=== PATIENT | male | born 1975 | race Hispanic/Latino ===

== ENCOUNTER 2019-09-10 18:43 | Emergency (ER) | payer SELFPAY ==
[2019-09-10] MEDS ORDERED: FAMOTIDINE 20 MG/2 ML VIAL IV ONE (20:05)
[2019-09-10] MEDS ORDERED: ONDANSETRON 4 MG/2 ML VIAL ONE (20:05)
[2019-09-10] MEDS ORDERED: ACETAMINOPHEN 500 MG TAB ONE (20:05)
[2019-09-10] MEDS ORDERED: NA CHLORIDE 0.9% 1,000 ML ONE (20:06)
--- NOTE | 2019-09-10 20:33 | RAD REPORT ---
EXAM DESCRIPTION: RAD - Chest Single View - 09/10/2019 8:26 pm CLINICAL HISTORY: Cough;Chest pain Chest pain. COMPARISON: CHEST SINGLE VIEW dated 10/14/2013 FINDINGS: Portable technique limits examination quality. The lungs are grossly clear. The heart is normal in size. No displaced fractures. IMPRESSION: No acute intrathoracic process suspected.
[2019-09-10 20:34] LABS: Absolute Lymphocytes (CBC) 1.3 K/uL (0.7-4.9); Basophils % 1.2 % (0-1.3); Hematocrit 48.8 % (39.6-49.0); Lymphocytes % 14.4 % (15.3-44.8); MPV 8.6 fL (7.6-11.3); RBC Red Blood Cell Count 5.72 M/uL (4.33-5.43)
[2019-09-10 20:39] LABS: Protime INR 1.11
[2019-09-10 20:53] LABS: ALT/SGPT 59 U/L (12-78); AST/SGOT 109 U/L (15-37); Albumin 4.1 g/dL (3.4-5.0); Alkaline Phosphatase 134 U/L (45-117); BUN Blood Urea Nitrogen 14 mg/dL (7-18); Bicarbonate 29 mmol/L (21-32); Bilirubin Direct 0.1 mg/dL (0-0.2); Bilirubin Total 0.7 mg/dL (0.2-1.0); Glucose Level 172 mg/dL (74-106); Magnesium 2.6 mg/dL (1.8-2.4); NT PRO-BNP 17 pg/mL (<125); Potassium 4.1 mmol/L (3.5-5.1); Protein, Total 8.4 g/dL (6.4-8.2); Sodium Level 138 mmol/L (136-145); Troponin (Emerg Dept Use Only) < 0.02 ng/mL (0.0-0.045)
--- NOTE | 2019-09-10 22:28 | EDPHYS ---
Physician Documentation [facility] Name: Fredrick Reyez Jr Age: 44 yrs Sex: Male : 1975 Arrival Date: 09/10/2019 Time: 18:45 Bed 27 Private MD: ED Physician Nolan Chakraborty HPI: 09/09 20:00 This 44 yrs old Male presents to ER via Ambulatory with complaints of High cp Blood Pressure. 20:00 The patient has elevated blood pressure and discovered this at home. cp 20:00 Severity of symptoms: At its worst the blood pressure was 200 mm Hg. cp 20:00 Associated signs and symptoms: Pertinent positives: fever, Pertinent negatives: chest cp pain, headache, lightheadedness, visual changes, vomiting. Patient reports history of hypertensive and being prescribed carvedilol and losartan medications. Patient admits to not taking meds as prescribed. Patient reports having cough Sunday that has improved. Was tested for COVID-19 and results returned positive today. 20:00 Patient reports taking blood pressure meds prior to arrival. cp Historical: - Allergies: 19:33 No Known Allergies; ll1 - PMHx: 19:33 Hypertension; ll1 - PSHx: 19:33 oral surgery; ll1 - Immunization history:: Flu vaccine is not up to date. - Social history:: Smoking status: Patient denies any tobacco usage or history of. Patient uses alcohol, only on a social basis. Patient/guardian denies using street drugs. ROS: 20:05 Constitutional: Positive for chills, fever, Negative for poor PO intake. cp 20:05 Cardiovascular: Negative for chest pain, edema. 20:05 Respiratory: Negative for cough, shortness of breath, wheezing. 20:05 Abdomen/GI: Negative for abdominal pain, nausea, vomiting, and diarrhea, constipation. 20:05 Back: Negative for radiated pain. 20:05 : Negative for urinary symptoms. 20:05 Skin: Negative for diaphoresis, rash. 20:05 Neuro: Negative for altered mental status, dizziness, headache, weakness. 20:05 All other systems are negative. Exam: 20:15 Constitutional: The patient appears in no acute distress, alert, awake, cp non-diaphoretic, non-toxic, well developed, well nourished, obese. 20:15 Head/Face: Normocephalic, atraumatic. cp 20:15 Eyes: Periorbital structures: appear normal, Conjunctiva: normal, no exudate, no injection, Sclera: no appreciated abnormality, Lids and lashes: appear normal, bilaterally. 20:15 ENT: External ear(s): are unremarkable, Ear canal(s): are normal, clear, TM's: dullness, bilaterally, Nose: is normal, Mouth: Lips: moist, Oral mucosa: moist, Posterior pharynx: Airway: no evidence of obstruction, patent, Tonsils: no enlargement, no exudate, swelling, is not appreciated, erythema, that is mild, exudate, is not appreciated. 20:15 Neck: ROM/movement: is normal, is supple, without pain, no range of motions limitations, no meningismus, no nuchal rigidity. 20:15 Chest/axilla: Inspection: normal, Palpation: is normal, no crepitus, no tenderness. 20:15 Cardiovascular: Rate: tachycardic, Rhythm: regular, Edema: is not appreciated, JVD: is not appreciated. 20:15 Respiratory: the patient does not display signs of respiratory distress, Respirations: normal, no use of accessory muscles, no retractions, labored breathing, is not present, Breath sounds: are clear throughout, no decreased breath sounds, no stridor, no wheezing. 20:15 Abdomen/GI: Inspection: abdomen appears normal, Palpation: abdomen is soft and non-tender, in all quadrants. 20:15 Back: pain, is absent, ROM is normal. 20:15 Skin: no rash present. 20:15 Neuro: Orientation: to person, place \T\ time. Mentation: is normal, Cerebellar function: is grossly normal, Motor: moves all fours, strength is normal, Sensation: is normal. Vital Signs: 19:30 BP 166 / 122; Pulse 106; Resp 18; Temp 101.5; Pulse Ox 96% on R/A; Pain 4/10; ll1 19:47 BP 165 / 107; Pulse 100; ll1 21:03 BP 154 / 92; Pulse 97; Resp 18; Pulse Ox 98% on R/A; ll1 21:13 Temp 100.8; ll1 21:58 BP 153 / 94; Pulse 86; Resp 18; Temp 98.5; Pulse Ox 96% on R/A; ll1 22:31 BP 149 / 89; Pulse 87; Resp 18; Pulse Ox 95% ; ll1 MDM: 19:31 Patient medically screened. cp 20:00 Differential diagnosis: hypertensive crisis, Malignant HTN, CVA, intracerebral cp hemorrhage, kidney failure, pneumonia, respiratory distress. 22:27 Data reviewed: vital signs, nurses notes, lab test result(s), EKG, radiologic studies, cp plain films, I have discussed the patient's presentation/case with the attending Emergency Department Physician;. 22:27 Test interpretation: by ED physician or midlevel provider: ECG. Counseling: I had a cp detailed discussion with the patient and/or guardian regarding: the historical points, exam findings, and any diagnostic results supporting the discharge/admit diagnosis, the presence of at least one elevated blood pressure reading (>120/80) during this emergency department visit, lab results, radiology results, the need for outpatient follow up, a family practitioner, to return to the emergency department if symptoms worsen or persist or if there are any questions or concerns that arise at home. Response to treatment: the patient's symptoms have markedly improved after treatment, VSS. Blood pressure improved. Patient with no signs of respiratory distress and appears non-toxic, and as a result, I will discharge patient. 09/09 19:52 Order name: Basic Metabolic Panel; Complete Time: 21:51 cp 09/09 21:51 Interpretation: Normal except: GLUC 172; CRE 1.35; GFR 58. cp 09/09 19:52 Order name: CBC with Diff; Complete Time: 21:51 cp 09/09 19:52 Order name: LFT's; Complete Time: 21:51 cp 09/09 21:52 Interpretation: Normal except: AST 109; ALK 134; TP 8.4; GLOB 4.3; A/G 1.0. cp 09/09 19:52 Order name: Magnesium; Complete Time: 21:51 cp 09/09 19:52 Order name: NT PRO-BNP; Complete Time: 21:51 cp 09/09 19:52 Order name: PT-INR; Complete Time: 21:51 cp 09/09 19:52 Order name: Troponin (emerg Dept Use Only); Complete Time: 21:51 cp 09/09 19:52 Order name: XRAY Chest (1 view); Complete Time: 21:51 cp 09/09 19:52 Order name: EKG; Complete Time: 19:53 cp 09/09 19:52 Order name: Cardiac monitoring; Complete Time: 21:04 cp 09/09 19:52 Order name: EKG - Nurse/Tech; Complete Time: 21:04 cp 09/09 19:52 Order name: IV Saline Lock; Complete Time: 19:53 cp 09/09 19:52 Order name: Labs collected and sent; Complete Time: :53 cp 09/09 19:52 Order name: O2 Per Protocol; Complete Time: :53 cp 09/09 19:52 Order name: O2 Sat Monitoring; Complete Time: 19:53 cp Administered Medications: 20:05 Drug: Tylenol 1000 mg Route: PO; ll1 21:56 Follow up: Response: No adverse reaction; Temperature is decreased; RASS: Alert and ll1 Calm (0) 20:10 Drug: NS 0.9% 1000 ml Route: IV; Rate: 1 bolus; Site: right antecubital; ll1 22:46 Follow up: Response: No adverse reaction; RASS: Alert and Calm (0); IV Status: ll1 Completed infusion; IV Intake: 1000ml 20:14 Drug: Zofran (Ondansetron) 4 mg Route: IVP; Site: right antecubital; ll1 21:56 Follow up: Response: No adverse reaction; RASS: Alert and Calm (0) ll1 20:14 Drug: Pepcid 20 mg Route: IVP; Site: right antecubital; ll1 21:56 Follow up: Response: No adverse reaction; RASS: Alert and Calm (0) ll1 22:47 Not Given (Patient Refused): Ibuprofen 800 mg PO once ll1 Disposition: 23:00 Chart complete. cp Disposition: 09/10/19 22:28 Discharged to Home. Impression: Hypertensive heart disease, Coronavirus infection, unspecified. - Condition is Stable. - Discharge Instructions: Hypertension, How to Take Your Blood Pressure, [id number], Managing Your Hypertension, COVID-19. - Prescriptions for Zithromax Z- Luis Miguel 250 mg Oral Tablet - take 1 tablet by ORAL route as directed for 5 days Day 1 - take two (2) tablets one time. Day 2, 3, 4 , 5 take one (1) tablet once daily.; 6 tablet. Prednisone 20 mg Oral Tablet - take 2 tablet by ORAL route once daily for 5 days; 10 tablet. - Medication Reconciliation Form, Thank You Letter, Antibiotic Education, Prescription Opioid Use, Work release form form. - Follow up: Private Physician; When: 1 - 2 days; Reason: Recheck today's complaints. - Problem is new. - Symptoms have improved. Addendum: 09/12/2019 04:29 Co-signature as Attending Physician, Nolan Chakraborty MD. [facility] Signatures: Dispatcher [employer] EDMS Oneal Kirkpatrick PA PA cp Armando Perdomo RN RN ll1 Nolan Chakraborty MD MD [id number] Corrections: (The following items were deleted from the chart) 09/09 22:50 22:28 09/10/2019 22:28 Discharged to Home. Impression: Hypertensive heart disease; ll1 Coronavirus infection, unspecified. Condition is Stable. Forms are Medication Reconciliation Form, Thank You Letter, Antibiotic Education, Prescription Opioid Use. Follow up: Private Physician; When: 1 - 2 days; Reason: Recheck today's complaints. Problem is new. Symptoms have improved. cp 09/10 21:23 21:16 Constitutional: Positive for chills, fever, Negative for poor PO intake, cp cp 21:23 21:16 Cardiovascular: Negative for chest pain, edema, cp cp 21:23 21:16 Respiratory: Negative for cough, shortness of breath, wheezing, cp cp 21:23 21:16 Abdomen/GI: Negative for abdominal pain, nausea, vomiting, and diarrhea, cp constipation, cp 21:23 21:16 Back: Negative for radiated pain, cp cp 21:23 21:16 : Negative for urinary symptoms, cp cp 21:23 21:16 Skin: Negative for diaphoresis, rash, cp cp 21:23 21:16 Neuro: Negative for altered mental status, dizziness, headache, weakness, cp cp 21:23 21:16 All other systems are negative, cp cp
--- NOTE | 2019-09-10 22:28 | ER ---
Nurse's Notes [facility] Name: Fredrick Reyez Jr Age: 44 yrs Sex: Male : 1975 Arrival Date: 09/10/2019 Time: 18:45 Bed 27 Private MD: Diagnosis: Hypertensive heart disease;Coronavirus infection, unspecified Presentation: 09/09 19:30 Chief complaint: Patient states: MEAD, not feeling well. BP at home 200/120. Prescribed ll1 losartan and carvedilol, but hasn't been taking as prescribed. Covid positive result yesterday. Didn't realize he has fever right now. Coronavirus screen: Client denies travel out of the [place] in the last 14 days. fatigue, fever, headache, Client presents with at least one sign or symptom that may indicate coronavirus-19. Standard/surgical mask placed on the client. Client reports previous positive COVID test result. Ebola Screen: Patient denies travel to an Ebola-affected area in the 21 days before illness onset. Initial Sepsis Screen: Does the patient meet any 2 criteria? Temp <36.0*C (96.8*F)) or > 38.3*C (100.9*F). HR > 90 bpm. Does the patient have a suspected source of infection? Yes: Other: covid positive. Risk Assessment: Do you want to hurt yourself or someone else? Patient reports no desire to harm self or others. Onset of symptoms was September 07, 2019. 19:30 Method Of Arrival: Ambulatory ll1 19:30 Acuity: MICHELLE 3 ll1 Historical: - Allergies: 19:33 No Known Allergies; ll1 - PMHx: 19:33 Hypertension; ll1 - PSHx: 19:33 oral surgery; ll1 - Immunization history:: Flu vaccine is not up to date. - Social history:: Smoking status: Patient denies any tobacco usage or history of. Patient uses alcohol, only on a social basis. Patient/guardian denies using street drugs. Screenin:07 Abuse screen: Denies threats or abuse. Nutritional screening: No deficits noted. ll1 Tuberculosis screening: No symptoms or risk factors identified. Fall Risk IV access (20 points). Total Goldberg Fall Scale indicates No Risk (0-24 pts). Assessment: 19:30 General: Appears in no apparent distress. Behavior is calm, cooperative, appropriate ll1 for age. General: covid positive result yesterday.. Pain: Complains of pain in head Pain currently is 4 out of 10 on a pain scale. Quality of pain is described as aching, Pain began 2-3 days ago. Is continuous. Neuro: Level of Consciousness is awake, alert, obeys commands, Oriented to person, place, time, situation, Appropriate for age Gun Bar[employer] are equal bilaterally Moves all extremities. Full function Gait is steady, Speech is normal, Facial symmetry appears normal, Reports headache occipital area. Cardiovascular: Reports high BP Heart tones S1 S2 Capillary refill < 3 seconds Clubbing of nail beds is absent JVD is absent Patient's skin is warm and dry. Pulses are all present. Rhythm is sinus tachycardia. Respiratory: Denies cough, shortness of breath. GI: Abdomen is flat, Bowel sounds present X 4 quads. Abd is soft and non tender X 4 quads. Reports nausea. 20:30 Reassessment: Patient appears in no apparent distress at this time. No changes from ll1 previously documented assessment. Patient and/or family updated on plan of care and expected duration. Pain level reassessed. Patient is alert, oriented x 3, equal unlabored respirations, skin warm/dry/pink. 21:30 Reassessment: Patient appears in no apparent distress at this time. No changes from ll1 previously documented assessment. Patient and/or family updated on plan of care and expected duration. Pain level reassessed. Patient is alert, oriented x 3, equal unlabored respirations, skin warm/dry/pink. 22:30 Reassessment: Patient appears in no apparent distress at this time. No changes from ll1 previously documented assessment. Patient and/or family updated on plan of care and expected duration. Pain level reassessed. Patient is alert, oriented x 3, equal unlabored respirations, skin warm/dry/pink. Patient states feeling better. Vital Signs: 19:30 BP 166 / 122; Pulse 106; Resp 18; Temp 101.5; Pulse Ox 96% on R/A; Pain 4/10; ll1 19:47 BP 165 / 107; Pulse 100; ll1 21:03 BP 154 / 92; Pulse 97; Resp 18; Pulse Ox 98% on R/A; ll1 21:13 Temp 100.8; ll1 21:58 BP 153 / 94; Pulse 86; Resp 18; Temp 98.5; Pulse Ox 96% on R/A; ll1 22:31 BP 149 / 89; Pulse 87; Resp 18; Pulse Ox 95% ; ll1 ED Course: 18:45 Patient arrived in ED. ds1 19:21 Armando Perdomo, RN is Primary Nurse. ll1 19:23 Oneal Kirkpatrick PA is PHCP. cp 19:23 Nolan Chakraborty MD is Attending Physician. cp 19:32 Triage completed. ll1 19:33 Arm band placed on Patient placed in an exam room, on a stretcher. ll1 20:00 Inserted saline lock: 20 gauge in right antecubital area, using aseptic technique. ll1 Blood collected. 20:27 XRAY Chest (1 view) In Process Unspecified. EDMS 21:07 Patient has correct armband on for positive identification. Bed in low position. Call ll1 light in reach. Side rails up X 1. Pulse ox on. NIBP on. 22:48 No provider procedures requiring assistance completed. IV discontinued, intact, ll1 bleeding controlled, No redness/swelling at site. Pressure dressing applied. Administered Medications: 20:05 Drug: Tylenol 1000 mg Route: PO; ll1 21:56 Follow up: Response: No adverse reaction; Temperature is decreased; RASS: Alert and ll1 Calm (0) 20:10 Drug: NS 0.9% 1000 ml Route: IV; Rate: 1 bolus; Site: right antecubital; ll1 22:46 Follow up: Response: No adverse reaction; RASS: Alert and Calm (0); IV Status: ll1 Completed infusion; IV Intake: 1000ml 20:14 Drug: Zofran (Ondansetron) 4 mg Route: IVP; Site: right antecubital; ll1 21:56 Follow up: Response: No adverse reaction; RASS: Alert and Calm (0) ll1 20:14 Drug: Pepcid 20 mg Route: IVP; Site: right antecubital; ll1 21:56 Follow up: Response: No adverse reaction; RASS: Alert and Calm (0) ll1 22:47 Not Given (Patient Refused): Ibuprofen 800 mg PO once ll1 Intake: 22:46 IV: 1000ml; Total: 1000ml. ll1 Outcome: 22:28 Discharge ordered by . cp 22:50 Patient left the ED. ll1 22:50 Discharged to home ambulatory. ll1 22:50 Condition: stable 22:50 Discharge instructions given to patient, Instructed on discharge instructions, follow up and referral plans. medication usage, Demonstrated understanding of instructions, follow-up care, medications, Prescriptions given X 2. Signatures: Dispatcher [employer] [facility] Tanika Moran ds1 Oneal Kirkpatrick PA PA cp Lewis, Lynsay, RN RN 1
[2019-09-10 23:34] VITALS: TEMP 98.5
[2019-09-10 23:35] VITALS: BP 149/89; O2SAT 95
== END 2019-09-10 22:50 | disposition home or self-care (01) ==
LOC: ER 18:43
DX: U07.1 COVID-19 (principal); I11.9 Hypertensive heart disease without heart failure; I10 Essential (primary) hypertension
CPT/HCPCS: 36415; 71045; 80048; 80076; 83735; 83880; 84484; 85025; 85610; 93005; 96361; 96374; 96375; 99284; J2405; J7030

== ENCOUNTER 2019-09-16 16:28 | Inpatient (IN) | payer SELFPAY ==
[2019-09-16 18:05] LABS: Protime INR 1.1
[2019-09-16 18:08] LABS: Absolute Lymphocytes (CBC) 0.7 K/uL (0.7-4.9); Basophils % 0.3 % (0-1.3); Hematocrit 52.4 % (39.6-49.0); Lymphocytes % 11.6 % (15.3-44.8); MPV 8.7 fL (7.6-11.3); RBC Red Blood Cell Count 6.21 M/uL (4.33-5.43)
[2019-09-16 18:24] LABS: ALT/SGPT 41 U/L (12-78); AST/SGOT 66 U/L (15-37); Albumin 3.8 g/dL (3.4-5.0); Alkaline Phosphatase 118 U/L (45-117); BUN Blood Urea Nitrogen 12 mg/dL (7-18); Bicarbonate 27 mmol/L (21-32); Bilirubin Direct 0.4 mg/dL (0-0.2); Bilirubin Total 1.1 mg/dL (0.2-1.0); Glucose Level 240 mg/dL (74-106); Magnesium 2.5 mg/dL (1.8-2.4); NT PRO-BNP 35 pg/mL (<125); Protein, Total 8.7 g/dL (6.4-8.2); Sodium Level 138 mmol/L (136-145); Troponin (Emerg Dept Use Only) < 0.02 ng/mL (0.0-0.045)
[2019-09-16] MEDS ORDERED: ALBUTEROL INHALER 60 PUFF/8 GM IH ONE (18:38)
[2019-09-16] MEDS ORDERED: dexAMETHasone 10 MG/ML VIAL ONE (18:38)
--- NOTE | 2019-09-16 18:55 | RAD REPORT ---
EXAM DESCRIPTION: RAD - Chest Single View - 09/16/2019 6:37 pm CLINICAL HISTORY: Chest pain;SOB Chest pain. COMPARISON: Chest Single View dated 09/10/2019; CHEST SINGLE VIEW dated 10/14/2013 FINDINGS: Portable technique limits examination quality. The lungs are quite underinflated resulting in vascular crowding and limitation in assessment. The he art is normal in size. No displaced fractures.
--- NOTE | 2019-09-16 19:02 | RAD REPORT ---
EXAM DESCRIPTION: CT - Chest For Pe Angio - 09/16/2019 6:47 pm CLINICAL HISTORY: Chest pain. Chest pain;SOB COMPARISON: No comparisons TECHNIQUE: CT angiogram of the pulmonary arteries was performed with MIP. All CT scans are performed using dose optimization technique as appropriate and may include automated exposure control or mA/KV adjustment according to patient size. FINDINGS: No evidence of pulmonary thromboembolism. No acute aortic finding demonstrated. Moderate bilateral interstitial lung opacities are seen, greatest in the lung bases. This pattern is compatible with COVID-19 infection. No significant pericardial or pleural fluid. No concerning bony finding. Fatty liver. IMPRESSION: No evidence of pulmonary thromboembolism. Moderate bilateral interstitial lung opacities are present, greatest in the lung bases. This pattern is compatible with COVID-19 infection.
[2019-09-16] MEDS ORDERED: ACETAMINOPHEN 500 MG TAB ONE (19:59)
--- NOTE | 2019-09-16 20:29 | ER ---
Nurse's Notes [facility] Name: Fredrick Reyez Jr Age: 44 yrs Sex: Male : 1975 Arrival Date: 09/16/2019 Time: 16:32 Bed 2 Private MD: Diagnosis: Pneumonia due to other specified infectious organisms;Coronavirus infection, unspecified;Hypoxemia Presentation: 09/15 16:41 Risk Assessment: Do you want to hurt yourself or someone else? Patient reports no ll1 desire to harm self or others. Onset of symptoms was September 14, 2019. 16:41 Acuity: MICHELLE 3 ll1 16:41 Chief complaint: Patient states: Cough and SOB continues since last visit here last ll1 week. covid positive. Coronavirus screen: Client denies travel out of the [place] in the last 14 days. Client presents with at least one sign or symptom that may indicate coronavirus-19. Standard/surgical mask placed on the client. Client reports previous positive COVID test result. Ebola Screen: Patient denies travel to an Ebola-affected area in the 21 days before illness onset. 16:41 Method Of Arrival: Ambulatory ll1 18:37 Initial Sepsis Screen: Does the patient meet any 2 criteria? No. Patient's initial ph sepsis screen is negative. Does the patient have a suspected source of infection? Yes: Productive cough/pneumonia. Historical: - Allergies: 16:40 No Known Allergies; ll1 - PMHx: 16:40 Hypertension; ll1 - PSHx: 16:40 oral surgery; ll1 - Immunization history:: Flu vaccine is not up to date. - Social history:: Smoking status: Patient denies any tobacco usage or history of. Patient uses alcohol, only on a social basis. Patient/guardian denies using street drugs. Screenin:37 Abuse screen: Denies threats or abuse. Denies injuries from another. Nutritional ph screening: No deficits noted. Tuberculosis screening: No symptoms or risk factors identified. Fall Risk None identified. Assessment: 17:30 General: Appears in no apparent distress. comfortable, obese, well groomed, Behavior is ph calm, cooperative, appropriate for age. Pain: Complains of pain in chest Pain does not radiate. Neuro: Level of Consciousness is awake, alert, obeys commands, Oriented to person, place, time, situation. Cardiovascular: Reports chest pain, fatigue, shortness of breath, Capillary refill < 3 seconds in bilateral fingers Patient's skin is warm and dry. Rhythm is regular. Respiratory: Reports shortness of breath on exertion cough that is persistent Airway is patent Respiratory effort is even, unlabored, Respiratory pattern is regular, symmetrical. GI: No signs and/or symptoms were reported involving the gastrointestinal system. Derm: Skin is intact, is healthy with good turgor, Skin is pink, warm \\T\\ dry. Musculoskeletal: Circulation, motion, and sensation intact. Range of motion: intact in all extremities. 18:42 Reassessment: Patient appears in no apparent distress at this time. Patient and/or ph family updated on plan of care and expected duration. Pain level reassessed. Patient is alert, oriented x 3, equal unlabored respirations, skin warm/dry/pink. 19:30 General: Appears in no apparent distress. Neuro: Level of Consciousness is awake, lp1 alert, obeys commands, Oriented to person, place, time, situation. Respiratory: Reports pain with respiration. Respiratory: Respiratory effort is even, shallow, Respiratory pattern is tachypnea Onset: The symptoms/episode began/occurred gradually. Derm: Skin is intact, Skin is dry, Skin is normal. 20:18 Reassessment: Ambulated with patient, O2 at 86% on RA; patient states slight shortness lp1 of breath, pain with respiration; Provider notified. 20:40 Reassessment: Hospitalist at bedside. lp1 21:00 Reassessment: Patient aware of pending admission; states feeling better, "I feel like lp1 my fever is breaking". Vital Signs: 16:41 BP 143 / 93; Pulse 85; Resp 22; Temp 97.9; Pulse Ox 95% on R/A; Pain 5/10; ll1 18:36 BP 147 / 78; Pulse 85; Resp 18; Pulse Ox 96% on 2 lpm NC; ph 19:29 BP 149 / 77; Pulse 87; Resp 28; Temp 100.4(O); Pulse Ox 90% on R/A; lp1 20:08 Pulse Ox 87% on R/A; lp1 20:30 BP 148 / 79; Pulse 88; Resp 18; Pulse Ox 92% on R/A; lp1 20:41 Weight 108.86 kg (R); lp1 21:20 BP 137 / 95; Pulse 83; Resp 20; Temp 99.1(O); Pulse Ox 93% on R/A; lp1 22:25 Temp 98.8(O); lp1 20:08 Patient standing at bedside, using urinal lp1 ED Course: 16:32 Patient arrived in ED. bp1 16:41 Triage completed. ll1 16:42 Arm band placed on Patient placed in an exam room, on a stretcher. ll1 16:43 Oneal Kirkpatrick PA is PHCP. cp 16:43 Bora Pierre MD is Attending Physician. cp 16:47 Meg Pimentel, JERRELL is Primary Nurse. ph 18:10 Initial lab(s) drawn, by ED staff, sent to lab. Inserted saline lock: 20 gauge in right ph antecubital area, using aseptic technique. Blood collected. 18:37 Patient has correct armband on for positive identification. Placed in gown. Bed in low ph position. Call light in reach. Side rails up X2. Pulse ox on. NIBP on. Door closed. Noise minimized. Warm blanket given. 18:37 Oxygen administration via nasal cannula \\T\\ 2L/min Response to oxygen therapy: symptoms ph improved. 20:09 No provider procedures requiring assistance completed. lp1 20:28 Walt Bell DO is Hospitalizing Provider. cp 20:40 Patient admitted, IV remains in place. lp1 20:50 20g IV to R AC DC'd due to infiltration. lp1 21:00 Inserted saline lock: 20 gauge in left antecubital area, using aseptic technique. lp1 Administered Medications: 18:35 Drug: Dexamethasone 6 mg Route: IVP; Site: right antecubital; ph 18:35 Follow up: Response: No adverse reaction ph 18:36 Drug: Albuterol HFA Inhaler 2 puffs Route: Inhalation; ph 19:59 Drug: Tylenol 1000 mg Route: PO; lp1 21:22 Follow up: Response: Temperature is decreased lp1 21:10 Drug: LevaQUIN 500 mg Volume: 100 ml; Route: IVPB; Infused Over: 60 mins; Site: left lp1 antecubital; 22:24 Follow up: IV Status: Completed infusion; IV Intake: 100ml lp1 Intake: 22:24 IV: 100ml; Total: 100ml. lp1 Outcome: 20:29 Decision to Hospitalize by Provider. cp 20:40 Condition: stable lp1 20:40 Instructed on the need for admit. 22:05 Admitted to ICU room 6, with chart, Report called to JERRELL Kumar lp1 22:25 Patient left the ED. lp1 Signatures: Elana Givens RN RN lp1 Meg Pimentel RN RN Oneal Beatty PA PA cp Armando Perdomo RN RN ll1 Angeline Uriarte [facility] Corrections: (The following items were deleted from the chart) 20:55 19:30 Respiratory: Respiratory effort is even, shallow, Respiratory pattern is lp1 tachypnea lp1
--- NOTE | 2019-09-16 20:29 | EDPHYS ---
Physician Documentation [facility] Name: Fredrick Reyez Jr Age: 44 yrs Sex: Male : 1975 Arrival Date: 09/16/2019 Time: 16:32 Bed 2 Private MD: ED Physician Bora Pierre HPI: 09/15 17:00 This 44 yrs old Male presents to ER via Ambulatory with complaints of Chest cp Pain, Breathing Difficulty. 17:00 The patient has shortness of breath when laying back and walking up stairs. Onset: The cp symptoms/episode began/occurred gradually. Duration: The symptoms are continuous, and are steadily getting worse. Associated signs and symptoms: Pertinent positives: chest pain, productive cough, Pertinent negatives: diaphoresis, fever. Historical: - Allergies: 16:40 No Known Allergies; ll1 - PMHx: 16:40 Hypertension; ll1 - PSHx: 16:40 oral surgery; ll1 - Immunization history:: Flu vaccine is not up to date. - Social history:: Smoking status: Patient denies any tobacco usage or history of. Patient uses alcohol, only on a social basis. Patient/guardian denies using street drugs. ROS: 17:01 Eyes: Negative for injury, pain, redness, and discharge. cp 17:01 Constitutional: Negative for fever. 17:01 Neck: Negative for stiffness. 17:01 Cardiovascular: Positive for chest pain, Negative for edema, palpitations. 17:01 Respiratory: Positive for cough, shortness of breath, on exertion. Negative for wheezing. 17:01 Abdomen/GI: Negative for abdominal pain, nausea, vomiting, and diarrhea. 17:01 Back: Negative for radiated pain. 17:01 Skin: Negative for rash. 17:01 Neuro: Negative for altered mental status, headache, syncope, weakness. 17:01 All other systems are negative. Exam: 17:05 Constitutional: The patient appears in no acute distress, alert, awake, cp non-diaphoretic, non-toxic, well developed, well nourished, obese. 17:05 Head/Face: Normocephalic, atraumatic. cp 17:05 Eyes: Periorbital structures: appear normal, Conjunctiva: normal, no exudate, no injection, Sclera: no appreciated abnormality, Lids and lashes: appear normal, bilaterally. 17:05 ENT: External ear(s): are unremarkable, Nose: is normal, Mouth: is normal, Posterior pharynx: Airway: no evidence of obstruction, patent. 17:05 Neck: ROM/movement: is normal, is supple, no meningismus, no nuchal rigidity. 17:05 Chest/axilla: Inspection: normal, Palpation: is normal, no crepitus, no tenderness. 17:05 Cardiovascular: Rate: normal, Rhythm: regular, Edema: is not appreciated, JVD: is not appreciated. 17:05 Respiratory: the patient does not display signs of respiratory distress, Respirations: labored breathing, is not present, accessory muscle usage, is absent, shallow respirations, that is mild, tachypnea, is not appreciated, Breath sounds: bronchial sounds, that are mild, are heard diffusely, stridor, is not appreciated, wheezing: is not appreciated. 17:05 Abdomen/GI: Inspection: obese Bowel sounds: active, all quadrants, Palpation: abdomen is soft and non-tender, in all quadrants. 17:05 Skin: no rash present. 17:05 Neuro: Orientation: to person, place \T\ time. Mentation: is normal, Motor: moves all fours, strength is normal. 17:45 ECG was reviewed by the Attending Physician. cp Vital Signs: 16:41 BP 143 / 93; Pulse 85; Resp 22; Temp 97.9; Pulse Ox 95% on R/A; Pain 5/10; ll1 18:36 BP 147 / 78; Pulse 85; Resp 18; Pulse Ox 96% on 2 lpm NC; ph 19:29 BP 149 / 77; Pulse 87; Resp 28; Temp 100.4(O); Pulse Ox 90% on R/A; lp1 20:08 Pulse Ox 87% on R/A; lp1 20:30 BP 148 / 79; Pulse 88; Resp 18; Pulse Ox 92% on R/A; lp1 20:41 Weight 108.86 kg (R); lp1 21:20 BP 137 / 95; Pulse 83; Resp 20; Temp 99.1(O); Pulse Ox 93% on R/A; lp1 22:25 Temp 98.8(O); lp1 20:08 Patient standing at bedside, using urinal lp1 MDM: 16:53 Patient medically screened. 18:00 Differential diagnosis: Bronchitis Chronic Obstructive Pulmonary Disease Myocardial cp Infarction pneumonia, Pneumothorax pulmonary edema, Pulmonary Embolism. 19:45 Data reviewed: vital signs, nurses notes, lab test result(s), EKG, radiologic studies, cp CT scan, plain films. 20:30 Physician consultation: Zev NGUYEN was called at 20:25, was contacted at 20:25, regarding admission, to the telemetry unit. patient's condition, and will see patient in ED, shortly. 09/15 16:55 Order name: Basic Metabolic Panel 09/15 16:55 Order name: CBC with Diff 09/15 16:55 Order name: LFT's 09/15 16:55 Order name: Magnesium 09/15 16:55 Order name: NT PRO-BNP 09/15 16:55 Order name: PT-INR 09/15 16:55 Order name: Troponin (emerg Dept Use Only) 09/15 16:55 Order name: D-Dimer 09/15 18:13 Order name: CBC with Automated Diff; Complete Time: 19:00 EDMS 09/15 19:00 Interpretation: Normal except: WBC 5.8; RBC 6.21; HCT 52.4; MIKA% 81.0; LYM% 11.6. 09/15 18:14 Order name: Protime (+INR); Complete Time: 19:00 EDMS 09/15 18:14 Order name: D-Dimer; Complete Time: 19:00 EDMS 09/15 19:00 Interpretation: Abnormal: D-DIMER 686. 09/15 18:25 Order name: Basic Metabolic Panel; Complete Time: 19:00 EDMS 09/15 19:00 Interpretation: Normal except: GLUC 240; GFR 74. 09/15 18:25 Order name: Liver (Hepatic) Function; Complete Time: 19:00 EDMS 0811 19:01 Interpretation: Normal except: AST 66; ALK 118; BILIT 1.1; BILID 0.4; TP 8.7; GLOB 4.9; cp A/G 0.8. 09/15 18:25 Order name: Troponin (Emerg Dept Use Only); Complete Time: 19:00 EDMS 09/15 19:01 Interpretation: Within normal limits: TROPED < 0.02. 09/15 16:55 Order name: XRAY Chest (1 view) 09/15 16:55 Order name: EKG; Complete Time: 17:33 cp 09/15 16:55 Order name: Cardiac monitoring; Complete Time: 18:35 cp 09/15 16:55 Order name: EKG - Nurse/Tech; Complete Time: 18:35 cp 09/15 16:55 Order name: IV Saline Lock; Complete Time: 18:35 cp 09/15 16:55 Order name: Labs collected and sent; Complete Time: 18:35 cp 09/15 18:15 Order name: CT Chest For PE Angio 09/15 18:25 Order name: NT PRO-BNP; Complete Time: 19:00 EDMS 09/15 18:25 Order name: Magnesium; Complete Time: 19:00 EDMS 09/15 18:56 Order name: RAD; Complete Time: 19:00 EDMS 09/15 19:03 Order name: CT; Complete Time: 19:41 EDMS 11 20:49 Order name: CRP 09/15 16:55 Order name: O2 Per Protocol; Complete Time: 18:35 cp 09/15 16:55 Order name: O2 Sat Monitoring; Complete Time: 18:35 09/15 19:42 Order name: Misc. Order: ambulate patient with pulse oximeter; Complete Time: 20:19 cp EC:45 Rate is 83 beats/min. Rhythm is regular. MA interval is normal. QRS interval is normal. cp QT interval is normal. T waves are Inverted in lead aVR. Interpreted by me. Reviewed by me. Administered Medications: 18:35 Drug: Dexamethasone 6 mg Route: IVP; Site: right antecubital; ph 18:35 Follow up: Response: No adverse reaction ph 18:36 Drug: Albuterol HFA Inhaler 2 puffs Route: Inhalation; ph 19:59 Drug: Tylenol 1000 mg Route: PO; lp1 21:22 Follow up: Response: Temperature is decreased lp1 21:10 Drug: LevaQUIN 500 mg Volume: 100 ml; Route: IVPB; Infused Over: 60 mins; Site: left lp1 antecubital; 22:24 Follow up: IV Status: Completed infusion; IV Intake: 100ml lp1 Disposition: 09/16/19 20:29 Hospitalization ordered by Walt Bell for Inpatient Admission. Preliminary diagnosis are Pneumonia due to other specified infectious organisms, Coronavirus infection, unspecified, Hypoxemia. - Bed requested for Intensive Care Unit. - Status is Inpatient Admission. lp1 - Condition is Stable. - Problem is new. - Symptoms have improved. Signatures: Dispatcher [employer] EDMS Elana Givens RN RN lp1 Meg Pimentel RN RN Oneal Kirkpatrick PA PA cp Jayla Gabriel RN RN Armando Perdomo RN RN ll1 Corrections: (The following items were deleted from the chart) 21:41 20:29 Hospitalization Ordered by Walt Bell DO for Inpatient Admission. Preliminary cg diagnosis is Pneumonia due to other specified infectious organisms; Coronavirus infection, unspecified; Hypoxemia. Bed requested for Telemetry/MedSurg (Inpatient). Status is Inpatient Admission. Condition is Stable. Problem is new. Symptoms have improved. cp 22:25 21:41 09/16/2019 20:29 Hospitalization Ordered by Walt Bell DO for Inpatient lp1 Admission. Preliminary diagnosis is Pneumonia due to other specified infectious organisms; Coronavirus infection, unspecified; Hypoxemia. Bed requested for Intensive Care Unit. Status is Inpatient Admission. Condition is Stable. Problem is new. Symptoms have improved. 09/16 22:20 09/15 20:15 Physician consultation: Zev NGUYEN was contacted at 20:15, cp regarding admission, to the telemetry unit. patient's condition, and will see patient in ED, shortly, cp
[2019-09-16] MEDS ORDERED: Levofloxacin500mg IV 500 MG/100 ML BAG IV ONE (21:01)
[2019-09-16] MEDS ORDERED: ACETAMINOPHEN 500 MG TAB PO PRN (21:22)
--- NOTE | 2019-09-16 21:40 | P.HP ---
Certification for Inpatient Patient admitted to: Observation With expected LOS: <2 Midnights Patient will require the following post-hospital care: None Practitioner: I am a practitioner with admitting privileges, knowledge of patient current condition, hospital course, and medical plan of care. Services: Services provided to patient in accordance with Admission requirements found in Title 42 Section 412.3 of the Code of Federal Regulations <Zev Brown - Last Filed: 09/16/19 21:34> Patient History Date of Service: 09/16/19 Reason for admission: Acute hypoxic respiratory failure History of Present Illness: 44-year-old male with a past medical history of hypertension presents to the emergency room complaining of difficulty breathing and chest pain. Patient states that he was diagnosed with Covid 1 week ago Sunday. He came to the emergency room 2 days ago. Was given antibiotics and oral steroids. States that he feels like he is having more difficulty breathing. In the emergency room patient presented with a room air saturation of 95% and a temperature of 97.9. After 2nd set of vitals were taken patient's room air saturations dropped to 87% and patient is running a low-grade fever 100.4. He is getting short of breath with just sitting there talking. On physical exam patient is not in distress. He is alert oriented x3 and pleasant and cooperative. He states that he cannot even walk to the bathroom before he gets winded and feels like he cannot catch his breath. On physical exam patient's oxygen saturations dropped into the mid 80s just with speaking and he is running a low-grade fever. Patient also complaining of a cough particularly when he lays to his right side. States the cough is sudden onset and significant and believes this is the cause of this chest pain. States that when he is sitting up and at rest he does not have chest pain and as long he does not cough he does not feel the chest pain. In the emergency room troponins were negative. CRP is pending. CT chest shows no PE despite an elevated D- dimer. Patient will be placed in observation and further evaluated. Home medications list reviewed: No - Past Medical/Surgical History Has patient received pneumonia vaccine in the past: No Diabetic: No -: HTN -: 4 wisdom teeth removed -: stitches to right eye Psychosocial/ Personal History: . Lives at home - Family History Father -: Hypertension, Lung disease Mother -: Hypertension - Social History Smoking Status: Never smoker Alcohol use: Yes CD- Drugs: No Caffeine use: Yes Place of Residence: Home <Zev Brown - Last Filed: 09/16/19 21:34> Date of Service: 09/17/19 <Walt Bell - Last Filed: 09/17/19 06:09> Allergies No Known Allergies Allergy (Verified 10/14/13 06:29) Home Medications: Metoprolol Succinate 50 mg PO DAILY 10/14/13 levoFLOXacin [Levaquin*] 500 mg PO DAILY 10/14/13 Topiramate [Topamax*] 25 mg PO BID #60 tab 10/18/13 Review of Systems General: Fever, As per HPI Eyes: Unremarkable ENT: Unremarkable Respiratory: Cough, Shortness of Breath, SOB with Excertion, As per HPI Cardiovascular: Chest Pain, As per HPI Gastrointestinal: Unremarkable Genitourinary: Unremarkable Musculoskeletal: Unremarkable Integumentary: Unremarkable Neurological: Unremarkable <Zev Brown - Last Filed: 09/16/19 21:34> Physical Examination - Vital Signs Temperature: 100.4 F Blood Pressure: 149/77 Pulse: 87 Respirations: 28 Pulse Ox (%): 87 (RA) - Physical Exam General: Alert, In no apparent distress, Oriented x3 HEENT: Atraumatic, Normocephalic, PERRLA Neck: Supple, No Thyromegaly, Other (Trachea midline) Respiratory: Diminished Cardiovascular: No edema, Normal pulses Capillary refill: <2 Seconds Gastrointestinal: Normal bowel sounds, Soft and benign, Non-distended Musculoskeletal: No swelling, No contractures, No erythema Integumentary: No breakdown, No significant lesion, No tenderness/swelling Neurological: Normal gait, Normal speech, Normal strength at 5/5 x4 extr, Normal tone - Studies Laboratory Data (last 24 hrs) 09/16/19 17:45: PT 13.0 H, INR 1.10 09/16/19 17:45: WBC 5.8 D, Hgb 17.7, Hct 52.4 H, Plt Count 198 09/16/19 17:45: Sodium 138, Potassium 4.0, BUN 12, Creatinine 1.09, Glucose 240 H, Magnesium 2.5 H, Total Bilirubin 1.1 H, AST 66 H, ALT 41, Alkaline Phosphatase 118 H <Zev Brown - Last Filed: 09/16/19 21:34> - Studies Laboratory Data (last 24 hrs) 09/16/19 17:45: PT 13.0 H, INR 1.10 09/16/19 17:45: WBC 5.8 D, Hgb 17.7, Hct 52.4 H, Plt Count 198 09/16/19 17:45: Sodium 138, Potassium 4.0, BUN 12, Creatinine 1.09, Glucose 240 H, Magnesium 2.5 H, Total Bilirubin 1.1 H, AST 66 H, ALT 41, Alkaline Phosphatase 118 H <Walt Bell - Last Filed: 09/17/19 06:09> Assessment and Plan - Plan Impression: Acute hypoxic respiratory failure with a recent diagnosis of Covid pneumonia: Fever: Essential hypertension: Plan: Acute hypoxic respiratory failure with a recent diagnosis of Covid pneumonia: In the emergency room patient's oxygen saturation dropped to 87% on room air. His respiratory rate increased to 28. Patient be started on IV methylprednisolone 40 mg q.8 hr, ascorbic acid, thiamine and melatonin. Will continue O2 support as necessary. Patient was on oral steroids and antibiotics at home. Will continue oral Levaquin 500 mg daily which was his dose at home based on his chest x-ray 2 days ago and the fact that he is running a fever of 100.4. Fever: Fever 100.4 in the ER. Patient responded well with Tylenol. Will continue. Essential hypertension: Will resume home medications once verified. Monitor blood pressure. Discharge Plan: Home Plan to discharge in: 48 Hours - Advance Directives Does patient have a Living Will: No Does patient have a Durable POA for Healthcare: No - Code Status/Comfort Care Code Status Assessed: Yes Time Spent Managing Pts Care (In Minutes): 55 <Zev Brown - Last Filed: 09/16/19 21:34> - Plan Case discussed in detail with physician activity assistant. Agree with evaluation, assessment and plan of care. Will continue monitor the patient closely. Will reassess today. <Walt Bell - Last Filed: 09/17/19 06:09>
[2019-09-16] MEDS ORDERED: Levofloxacin500mg IV 500 MG/100 ML BAG IV SCH (22:00)
[2019-09-17] MEDS ORDERED: METHYLPREDNISOLONE 40 MG INJ IV SCH (01:00)
[2019-09-17 05:23] LABS: Urine Appearance CLEAR; Urine Bilirubin NEGATIVE (NEG); Urine Blood NEGATIVE (NEG); Urine Color YELLOW; Urine Glucose 1+ (NEG); Urine Protein 1+ (NEG); Urine Specific Gravity >=1.030 (1.005-1.030)
[2019-09-17 05:24] LABS: Absolute Lymphocytes (CBC) 0.9 K/uL (0.7-4.9); Basophils % 0.2 % (0-1.3); Hematocrit 46.6 % (39.6-49.0); Lymphocytes % 13.7 % (15.3-44.8); MPV 8.8 fL (7.6-11.3); RBC Red Blood Cell Count 5.56 M/uL (4.33-5.43)
[2019-09-17 05:33] LABS: Urine Microscopic Reflex ORDER UMIC
[2019-09-17 05:56] LABS: BUN Blood Urea Nitrogen 14 mg/dL (7-18); Bicarbonate 31 mmol/L (21-32); Glucose Level 234 mg/dL (74-106); Magnesium 2.7 mg/dL (1.8-2.4); Potassium 4.7 mmol/L (3.5-5.1); Sodium Level 138 mmol/L (136-145); Troponin I < 0.02 ng/mL (0.0-0.045)
[2019-09-17 06:46] LABS: Urine Bacteria <20 /HPF (NONE SEEN); Urine Culture Reflex Order NOT NEEDED; Urine RBC <5 /HPF (NONE SEEN)
[2019-09-17] MEDS ORDERED: HYDRALAZINE HCL 20 MG/ML VIAL IV PRN (07:30)
[2019-09-17] MEDS ORDERED: METHYLPREDNISOLONE 125 MG INJ IV ONE (07:48)
[2019-09-17] MEDS: ENOXAPARIN 80 MG/0.8 ML SQ SCH ×2 (08:45→21:10)
[2019-09-17] MEDS: THIAMINE HCL 100 MG TABLET PO SCH (08:45)
[2019-09-17] MEDS: ASCORBIC ACID 500 MG TABLET PO SCH (08:45)
[2019-09-17] MEDS: METHYLPREDNISOLONE 40 MG INJ IV SCH ×2 (09:00→16:43)
[2019-09-17] MEDS ORDERED: D50W 25 GM/50 ML SYRINGE/VIAL IV PRN (11:58)
[2019-09-17] MEDS ORDERED: GLUCAGON 1 MG/VIAL IM PRN (11:58)
--- NOTE | 2019-09-17 12:36 | EKG ---
Test Date: 2019-09-16 Test Time: 17:38:30 Receptionist Clerk: DEMETRICE MEASUREMENT RESULTS: Intervals: Rate: 83 UT: 158 QRSD: 96 QT: 374 QTc: 439 [place]: P: 51 UT: 158 QRS: -5 T: 33 INTERPRETIVE STATEMENTS: Normal sinus rhythm Cannot rule out Anterior infarct, age undetermined Abnormal ECG Compared to ECG 09/10/2019 20:29:02 Myocardial infarct finding now present Left ventricular hypertrophy no longer present Electronically Signed On 09-17-19 12:35:30 CDT by Martell Cook
--- NOTE | 2019-09-17 13:40 | P.PN ---
Subjective Date of Service: 09/17/19 Primary Care Provider: unknown Chief Complaint: Acute hypoxic respiratory failure Subjective: Other (Patient still requiring oxygen. Patient feels slightly better than he came in.) Physical Examination - Vital Signs Temperature: 97.5 F Blood Pressure: 143/84 Pulse: 75 Respirations: 27 Pulse Ox (%): 86 - Physical Exam General: Alert, Cooperative HEENT: Atraumatic Neck: Supple Respiratory: Other (Patient was able to stand and walk appropriately but still slightly tachypneic and hypoxic with exertion) Cardiovascular: Normal pulses Neurological: Normal speech, Normal strength at 5/5 x4 extr, Normal tone, Normal affect - Studies Laboratory Data (last 24 hrs) 09/17/19 05:07: Sodium 138, Potassium 4.7, BUN 14, Creatinine 1.01, Glucose 234 H, Magnesium 2.7 H, Troponin I < 0.02 09/17/19 05:07: WBC 6.8 D, Hgb 16.0, Hct 46.6, Plt Count 192 09/17/19 05:07: Magnesium Cancelled 09/16/19 17:45: PT 13.0 H, INR 1.10 09/16/19 17:45: WBC 5.8 D, Hgb 17.7, Hct 52.4 H, Plt Count 198 09/16/19 17:45: Sodium 138, Potassium 4.0, BUN 12, Creatinine 1.09, Glucose 240 H, Magnesium 2.5 H, Total Bilirubin 1.1 H, AST 66 H, ALT 41, Alkaline Phosphatase 118 H Medications List Reviewed: Yes Assessment & Plan Discharge Plan: Home Plan to discharge in: 48 Hours Physician Review Additional Text: Impression: Acute respiratory failure with hypoxia secondary to COVID 19 bilateral pneumonia Hyperglycemia suspect diabetes mellitus type 2 Hypertension Obesity, BMI 37 Plan: Acute respiratory failure with hypoxia secondary to COVID 19 bilateral pneumonia: Continue with IV steroids. Steroids were increased. Continue with supplementation as well. Encourage ambulation. Encourage incentive spirometer. Will continue to monitor closely. Will try to wean off oxygen. Pulmonology consulted. Case discussed at length. If no significant improvement over the next 24 hr will need to consider convalescent plasma and/or Remdesivir. Case discussed with patient. Patient understands both treatment options are not definitive treatments. Further education provided. Hyperglycemia suspect diabetes mellitus type 2: Will place on Accu-Cheks. This may be related to the IV steroids. Underlying diabetes will need to be considered. Will check A1c. Will also start basal insulin for strict control. Hypertension: Home medication reviewed. Will start low-dose losartan. Obesity: Will address lifestyle modification education. Time Spent Managing Pts Care (In Minutes): 55
[2019-09-17] MEDS: INSULIN -REGULAR HUMAN 50 UNIT/0.5 ML ML SQ SCH ×2 (16:42→21:12)
[2019-09-17] MEDS ORDERED: INSULIN GLARGINE 100 UNITS/ML SQ SCH (21:00)
[2019-09-17] MEDS: MELATONIN 3 MG TABLET PO SCH (21:10)
[2019-09-18] MEDS: METHYLPREDNISOLONE 40 MG INJ IV SCH ×3 (00:04→17:05)
[2019-09-18 05:49] LABS: BUN Blood Urea Nitrogen 19 mg/dL (7-18); Bicarbonate 27 mmol/L (21-32); Ferritin 893.1 ng/mL (26-388); Glucose Level 250 mg/dL (74-106); Magnesium 2.8 mg/dL (1.8-2.4); Potassium 3.9 mmol/L (3.5-5.1); Sodium Level 136 mmol/L (136-145)
[2019-09-18] MEDS ORDERED: POTASSIUM 25 MEQ EFFERV TAB PO ONE (08:00)
--- NOTE | 2019-09-18 08:18 | P.CNS ---
Date of Consult: 09/18/19 Primary Care Provider: unknown Chief Complaint: Pneumonia due to coombs virus History of Present Illness: Patient is 44 years of age past medical history of hypertension was diagnosed with coombs virus infection about a week ago him to the emergency room compl aining of worsening dyspnea low oxygen saturation he is doing fine he has had a low-grade fever no complaints now is still hypoxic Allergies No Known Allergies Allergy (Verified 10/14/13 06:29) Home Medications: Losartan Potassium 50 mg PO DAILY 09/17/19 carvediloL [Carvedilol] 6.25 mg PO DAILY 09/17/19 - Past Medical/Surgical History Diabetic: No -: HTN -: 4 wisdom teeth removed -: stitches to right eye Psychosocial/ Personal History: . Lives at home - Family History Father Medical History: Hypertension, Lung disease, Diabetes Mother Medical History: Hypertension - Social History Alcohol use: Yes CD- Drugs: No Caffeine use: Yes Place of Residence: Home Review of Systems General: Weakness Respiratory: Shortness of Breath Physical Examination Temp Pulse Resp BP Pulse Ox 97.9 F 66 36 H 125/76 87 L 09/18/19 04:00 09/18/19 04:00 09/18/19 04:00 09/18/19 04:00 09/18/19 04:00 - Problems (1) Pneumonia due to human coronavirus Current Visit: Yes Status: Acute Plan: Patient is 44 years of age admitted with respiratory failure secondary to coombs virus he is doing better setup with home oxygen CRP is down to less than 50 ferritin level is also declining CT scan reviewed white count is normal setup for home oxygen possible discharge on prednisone 20 mg t 1 tablet twice a day for a week and then 10 mg twice a day for another week continue with multivitamin supplements
[2019-09-18] MEDS: THIAMINE HCL 100 MG TABLET PO SCH (08:32)
[2019-09-18] MEDS: ASCORBIC ACID 500 MG TABLET PO SCH (08:32)
[2019-09-18] MEDS: INSULIN -REGULAR HUMAN 50 UNIT/0.5 ML ML SQ SCH ×4 (08:32→20:51)
[2019-09-18] MEDS: ENOXAPARIN 80 MG/0.8 ML SQ SCH ×2 (08:33→20:31)
[2019-09-18] MEDS: INSULIN GLARGINE 100 UNITS/ML SQ SCH ×2 (08:34→20:51)
[2019-09-18] MEDS ORDERED: LOSARTAN POTASSIUM 50 MG TABLET PO SCH (09:00)
--- NOTE | 2019-09-18 12:53 | P.PN ---
Subjective Date of Service: 09/18/19 Primary Care Provider: unknown Chief Complaint: Pneumonia due to coombs virus Subjective: Improving Physical Examination - Vital Signs Temperature: 97.9 F Blood Pressure: 144/88 Pulse: 66 Respirations: 26 Pulse Ox (%): 94 - Physical Exam General: Alert Neck: Supple Respiratory: Other (Patient breathing appropriately on nasal cannula. Patient reports improvement) Cardiovascular: Normal pulses Neurological: Normal speech, Normal strength at 5/5 x4 extr, Normal tone - Studies Medications List Reviewed: Yes Assessment & Plan Discharge Plan: Home Plan to discharge in: 24 Hours Physician Review Additional Text: Impression: Acute respiratory failure with hypoxia secondary to COVID 19 bilateral pneumonia Hyperglycemia suspect diabetes mellitus type 2 Hypertension Obesity, BMI 37 Plan: Acute respiratory failure with hypoxia secondary to COVID 19 bilateral pneumonia: Patient continues to improve. Continue IV steroids. Will adjust insulin for better diabetic control. Continue wean off oxygen. Options for, less some plasma address in detail. He understands this is not a definitive treatment. Education will be provided. If agreeable after reviewing materials then plasma could be given. Anticipate discharge in the next [address] with oxygen in [address]. Hyperglycemia suspect diabetes mellitus type 2: Continue Accu-Cheks. Basal insulin started. Increase basal insulin 10 units subcu twice daily.. Patient needs better diabetic control. Will start metformin. Hypertension: Will adjust losartan. Obesity: BMI 35.9 Will address lifestyle modification education. Time Spent Managing Pts Care (In Minutes): 55
[2019-09-18] MEDS: METFORMIN HCL 500 MG TAB PO SCH (17:05)
[2019-09-18] MEDS: MELATONIN 3 MG TABLET PO SCH (20:32)
[2019-09-19] MEDS: METHYLPREDNISOLONE 40 MG INJ IV SCH ×2 (00:20→08:02)
[2019-09-19 04:35] VITALS: O2SAT 92; BMI 36.5
[2019-09-19 06:20] LABS: Absolute Lymphocytes (CBC) 1.1 K/uL (0.7-4.9); Basophils % 0.1 % (0-1.3); C-Reactive Protein 21.1 mg/L (<3.00); Hematocrit 44.4 % (39.6-49.0); Lymphocytes % 9.4 % (15.3-44.8); MPV 8.8 fL (7.6-11.3); Magnesium 3.1 mg/dL (1.8-2.4); RBC Red Blood Cell Count 5.34 M/uL (4.33-5.43)
--- NOTE | 2019-09-19 07:57 | P.DS ---
Admission Date: 09/17/19 Discharge Date: 09/19/19 Primary Care Provider: unknown Disposition: ROUTINE DISCHARGE Discharge Condition: GOOD Reason for Admission: Pneumonia due to coombs virus Consultations: Pulmonary-Dr. Ulrich Procedures: CT Scan: FINDINGS: No evidence of pulmonary thromboembolism. No acute aortic finding demonstrated. Moderate bilateral interstitial lung opacities are seen, greatest in the lung bases. This pattern is compatible with COVID-19 infection. No significant pericardial or pleural fluid. No concerning bony finding. Fatty liver. IMPRESSION: No evidence of pulmonary thromboembolism. Moderate bilateral interstitial lung opacities are present, greatest in the lung bases. This pattern is compatible with COVID-19 infection. Medical Problem List: Acute respiratory failure with hypoxia secondary to COVID 19 bilateral pneumonia Hyperglycemia with new diagnosis of diabetes mellitus type 2 Hypertension Fatty liver Obesity, BMI 35.9 Brief History of Present Illness: 44-year-old male with history of hypertension presented to the [facility] room with increasing shortness of breath. Prior to ER visit patient had been diagnosed with COVID 19. Symptoms worsened. The patient was admitted for acute respiratory failure with hypoxia. Hospital Course: Patient presented with acute respiratory failure with hypoxia secondary to COVID 19 bilateral pneumonia. During the course of his stay patient received IV steroids and supplementation. Patient also required oxygen. His condition improved. Patient able to ambulate but still requires oxygen. Home oxygen will be arranged prior to discharge. At discharge patient still requiring 3 L per nasal cannula. Patient was seen by pulmonology. At discharge patient will have home oxygen arranged. Currently on 3 L per nasal cannula. Maintain oxygen sats above 93%. This can be weaned off over time with the help of pulmonology and PCP. At discharge patient will continue with prednisone 20 mg 1 pill twice daily for 5 days then 1 pill once daily for 5 days. Patient will continue with supplementation including melatonin 3 mg at bedtime, thiamine 100 mg daily and vitamin C daily. At discharge patient will continue with quarantine at home. Patient will continue with CDC guidelines. Recommend to maintain social distancing, face mask use and hand washing. Recommend to by a pulse oximeter to monitor his oxygen level. Recommend to maintain oxygen saturations above 93%. Infection control will contact health department to follow his care as well. Recommend follow up with pulmonology in 1 week to follow up this hospitalization and continue his care. Recommend recheck chest x-ray in 2-4 weeks to monitor resolution. At discharge patient will establish care with PCP in 1 week to follow up his care as well. Patient had hyperglycemia. Patient was diagnose with new diabetes mellitus type 2. A1c 8.3. Patient was given Lantus done the course her stay due to high-dose steroids. At discharge will recommend that the patient continue with metformin 1000 mg 1 pill twice daily. No need for insulin therapy at this time. Recommend to monitor blood sugars at least twice daily. Recommend to maintain blood sugars less 140 fasting or less than 200 after meals. Further adjustment in medication or additional medication may be required. This can be addressed by PCP. Patient may continue with a 2000 ADA diet. Patient with hypertension. Patient previously on medication. At discharge patient may continue with losartan 50 mg daily. Recommend to monitor blood pressure daily. Recommend to maintain blood pressure less 150/80. Further adj ustment can be done by his PCP. CT scan also revealed fatty liver. Lifestyle modification education will be provided. Education on fatty liver provided. Patient may follow up with GI as an outpatient to further monitor and address. Vital Signs/Physical Exam: Temp Pulse Resp BP Pulse Ox 97.2 F 71 16 142/91 H 93 09/19/19 00:00 09/19/19 04:00 09/19/19 04:00 09/19/19 04:00 09/19/19 04:00 General: Alert, In no apparent distress, Oriented x3, Cooperative HEENT: Atraumatic Neck: Supple Respiratory: Other (Patient breathing appropriately without significant tachypnea. Patient on 3 L per nasal cannula.) Cardiovascular: Normal pulses Neurological: Normal speech, Normal strength at 5/5 x4 extr, Normal tone, Normal affect Laboratory Data at Discharge: WBC 11.8 K/uL (4.3-10.9) H D 09/19/19 05:24 Hgb 15.3 g/dL (13.6-17.9) 09/19/19 05:24 Hct 44.4 % (39.6-49.0) 09/19/19 05:24 Plt Count 274 K/uL (152-406) D 09/19/19 05:24 PT 13.0 SECONDS (9.5-12.5) H 09/16/19 17:45 INR 1.10 09/16/19 17:45 Sodium 139 mmol/L (136-145) 09/19/19 05:24 Potassium 4.0 mmol/L (3.5-5.1) 09/19/19 05:24 BUN 25 mg/dL (7-18) H 09/19/19 05:24 Creatinine 0.95 mg/dL (0.55-1.3) 09/19/19 05:24 Glucose 233 mg/dL (74-106) H 09/19/19 05:24 Phosphorus 5.0 mg/dL (2.5-4.9) H 09/18/19 05:09 Magnesium 3.1 mg/dL (1.8-2.4) H 09/19/19 05:24 Total Bilirubin 1.1 mg/dL (0.2-1.0) H 09/16/19 17:45 AST 66 U/L (15-37) H 09/16/19 17:45 ALT 41 U/L (12-78) 09/16/19 17:45 Alkaline Phosphatase 118 U/L (45-117) H 09/16/19 17:45 Troponin I < 0.02 ng/mL (0.0-0.045) 09/17/19 05:07 Home Medications: Ascorbic Acid [Vitamin C*] 500 mg PO DAILY #30 tablet 09/19/19 Losartan Potassium [Cozaar*] 50 mg PO DAILY #30 tablet 09/19/19 Melatonin [Melatonin*] 3 mg PO BEDTIME #30 tablet 09/19/19 Metformin HCl 1,000 mg PO BID #60 tablet 09/19/19 Thiamine HCl [Vitamin B-1*] 100 mg PO DAILY #30 tablet 09/19/19 predniSONE [Prednisone*] 20 mg PO SEECOM #15 tab 09/19/19 New Medications: Losartan Potassium [Cozaar*] 50 mg PO DAILY #30 tablet Melatonin [Melatonin*] 3 mg PO BEDTIME #30 tablet Metformin HCl 1,000 mg PO BID #60 tablet predniSONE [Prednisone*] 20 mg PO SEECOM #15 tab Thiamine HCl [Vitamin B-1*] 100 mg PO DAILY #30 tablet Ascorbic Acid [Vitamin C*] 500 mg PO DAILY #30 tablet Patient Discharge Instructions: 1. Follow up with PCP in 1 week to follow up hospitalization. 2. Patient presented with acute respiratory failure with hypoxia secondary to COVID 19 bilateral pneumonia. During the course of his stay patient received IV steroids and supplementation. Patient also required oxygen. His condition improved. Patient able to ambulate but still requires oxygen. Home oxygen will be arranged prior to discharge. At discharge patient still requiring 3 L per nasal cannula. Patient was seen by pulmonology. At discharge patient will have home oxygen arranged. Currently on 3 L per nasal cannula. Maintain oxygen sats above 93%. This can be weaned off over time with the help of pulmonology and PCP. At discharge patient will continue with prednisone 20 mg 1 pill twice daily for 5 days then 1 pill once daily for 5 days. Patient will continue with supplementation including melatonin 3 mg at bedtime, thiamine 100 mg daily and vitamin C daily. At discharge patient will continue with quarantine at home. Patient will continue with CDC guidelines. Recommend to maintain social distancing, face mask use and hand washing. Recommend to by a pulse oximeter to monitor his oxygen level. Recommend to maintain oxygen saturations above 93%. Infection control will contact health department to follow his care as well. Recommend follow up with pulmonology in 1 week to follow up this hospitalization and continue his care. Recommend rec heck chest x-ray in 2-4 weeks to monitor resolution. At discharge patient will establish care with PCP in 1 week to follow up his care as well. 3. Patient had hyperglycemia. Patient was diagnose with new diabetes mellitus type 2. A1c 8.3. Patient was given Lantus done the course her stay due to high-dose steroids. At discharge will recommend that the patient continue with metformin 1000 mg 1 pill twice daily. No need for insulin therapy at this time. Recommend to monitor blood sugars at least twice daily. Recommend to maintain blood sugars less 140 fasting or less than 200 after meals. Further adjustment in medication or additional medication may be required. This can be addressed by PCP. Patient may continue with a 2000 ADA diet. 4. Patient with hypertension. Patient previously on medication. At discharge patient may continue with losartan 50 mg daily. Recommend to monitor blood pressure daily. Recommend to maintain blood pressure less 150/80. Further adjustment can be done by his PCP. 5. CT scan also revealed fatty liver. Lifestyle modification education will be provided. Education on fatty liver provided. Patient may follow up with GI as an outpatient to further monitor and address. Diet: ADA Activity: Ad kelby Time spent managing pt's care (in minutes): 55
[2019-09-19] MEDS: METFORMIN HCL 500 MG TAB PO SCH ×2 (08:00→17:06)
[2019-09-19] MEDS: THIAMINE HCL 100 MG TABLET PO SCH (08:00)
[2019-09-19] MEDS: ASCORBIC ACID 500 MG TABLET PO SCH (08:00)
[2019-09-19] MEDS: ENOXAPARIN 80 MG/0.8 ML SQ SCH (08:01)
[2019-09-19] MEDS: INSULIN -REGULAR HUMAN 50 UNIT/0.5 ML ML SQ SCH ×3 (08:02→17:05)
[2019-09-19] MEDS: INSULIN GLARGINE 100 UNITS/ML SQ SCH (08:02)
[2019-09-19] MEDS ORDERED: LOSARTAN POTASSIUM 50 MG TABLET PO SCH (09:00)
[2019-09-19 09:26] LABS: Blood Morphology Comment NOT SEEN (NOT SEEN); Platelet Estimate ADEQ; Urine White Blood Cell Casts OK
[2019-09-19] MEDS ORDERED: SODIUM CHLORIDE 0.9% 10ML INJ IV PRN (12:23)
[2019-09-19 16:17] VITALS: BP 148/89; TEMP 97.8
[2019-09-19] MEDS ORDERED: METHYLPREDNISOLONE 125 MG INJ IV SCH (17:00)
[2019-09-20] MEDS ORDERED: PANTOPRAZOLE 40 MG INJ IVP SCH (09:00)
== END 2019-09-19 18:30 | disposition home or self-care (01) | DRG 177 ==
LOC: ER 16:28 → INTOOBSV 21:26 → OBSVTOIN 21:26 → ERHOLD 21:26 → 3RD-ICU 22:06 → OBSVTOIN 09-17 08:04
PROVIDERS: ADMIT Family Medicine; ATTEND Family Medicine
DX: U07.1 COVID-19 (principal); J12.89 Other viral pneumonia; J96.01 Acute respiratory failure with hypoxia; I10 Essential (primary) hypertension; E11.65 Type 2 diabetes mellitus with hyperglycemia; K76.0 Fatty (change of) liver, not elsewhere classified; E66.9 Obesity, unspecified; Z68.35 Body mass index [BMI] 35.0-35.9, adult; Z79.899 Other long term (current) drug therapy
CPT/HCPCS: 36415; 71045; 71275; 80048; 80076; 81003; 81015; 82728; 82947; 83036; 83735; 83880; 84100; 84484; 85025; 85379; 85610; 86140; 93005; 94760; 96365; 96375; 99285; C9113; G0378; J1100; J1815; J2920; J2930; Q9967

== ENCOUNTER 2020-04-13 17:43 | Inpatient (IN) | payer SELFPAY ==
[2020-04-13 18:13] LABS: Absolute Lymphocytes (CBC) 3.5 K/uL (0.7-4.9); Lymphocytes % 32.7 % (15.3-44.8); MPV 8.4 fL (7.6-11.3); RBC Red Blood Cell Count 5.62 M/uL (4.33-5.43)
[2020-04-13 18:19] LABS: Protime INR 0.99
[2020-04-13 18:38] LABS: ALT/SGPT 23 U/L (12-78); Albumin 4.3 g/dL (3.4-5.0); Alkaline Phosphatase 153 U/L (45-117); BUN Blood Urea Nitrogen 13 mg/dL (7-18); Bicarbonate 28 mmol/L (21-32); Bilirubin Direct 0.1 mg/dL (0-0.2); Bilirubin Total 0.6 mg/dL (0.2-1.0); Glucose Level 143 mg/dL (74-106); NT PRO-BNP 9 pg/mL (<125); Protein, Total 8.1 g/dL (6.4-8.2); Sodium Level 140 mmol/L (136-145); Troponin (Emerg Dept Use Only) < 0.02 ng/mL (0.0-0.045)
[2020-04-13 18:39] LABS: AST/SGOT 21 U/L (15-37); Magnesium 2.6 mg/dL (1.8-2.4); Potassium 3.9 mmol/L (3.5-5.1)
--- NOTE | 2020-04-13 18:58 | RAD REPORT ---
EXAM DESCRIPTION: RAD - Chest Single View - 04/13/2020 6:19 pm CLINICAL HISTORY: CHEST PAIN, shortness of breath COMPARISON: September 2019 TECHNIQUE: AP portable chest image was obtained 04/13/2020 6:19 pm . FINDINGS: Lung volumes are low. No peripheral mass or consolidation. No failure or volume overload. Heart and vasculature are normal. No measurable pleural effusion and no pneumothorax. No acute bony a bnormality seen. No acute aortic findings suspected. IMPRESSION: No acute cardiopulmonary process. No significant change from comparison.
--- NOTE | 2020-04-13 19:13 | RAD REPORT ---
EXAM DESCRIPTION: CT - Angio Aorta For Dissection - 04/13/2020 7:01 pm CLINICAL HISTORY: CHEST PAIN COMPARISON: Portable chest same date TECHNIQUE: Dynamically enhanced 3 mm thick images of the chest, abdomen, and pelvis were obtained du ring administration of approximately 150mL Isovue 370 IV contrast. Sagittal and coronal reconstructio n images were generated using MIP and reviewed. Exam utilizes a protocol to evaluate entire course of the aorta. All CT scans are performed using dose optimization technique as appropriate and may include automated exposure control or mA/KV adjustment according to patient size. FINDINGS: Aorta is normal in diameter with no dissection or other acute aortic findings. Reconstruct ion images show no significant findings. Pulmonary arteries are normal as well. No cardiomegaly, pericardial thickening or pericardial effusio n. No mass or infiltrate in the lung parenchyma. No pleural thickening, pleural effusion or pneumothorax . No abnormal mediastinal or hilar mass or lymphadenopathy seen. No chest wall mass or abnormal axillar y lymphadenopathy. Celiac, superior mesenteric and inferior mesenteric arteries show no suspicious findings. Right renal artery is unremarkable. There are mild atherosclerotic changes at the origin of the left renal arter y without significant luminal narrowing. Solid abdominal viscera and bowel show no significant findin gs. Fatty infiltration is probably present in the liver. No mass or abnormal lymphadenopathy. No ana luisa e air, free fluid or inflammatory stranding. Urinary bladder is mostly contracted limiting assessment . No acute findings. IMPRESSION: Negative CT scan of the aorta. No other significant findings on chest, abdomen and pelvis examination.
--- NOTE | 2020-04-13 19:54 | ER ---
Nurse's Notes [facility] Name: Fredrick Reyez Jr Age: 44 yrs Sex: Male : 1975 Arrival Date: 04/13/2020 Time: 17:47 Bed 4 Private MD: Diagnosis: Chest pain, unspecified Presentation: 04/13 17:48 Chief complaint: Patient states: CP and SOB for 2 days. Pain into L arm. Coronavirus ll1 screen: Client denies travel out of the [place] in the last 14 days. At this time, the client does not indicate any symptoms associated with coronavirus-19. Ebola Screen: Patient denies travel to an Ebola-affected area in the 21 days before illness onset. Initial Sepsis Screen: Does the patient meet any 2 criteria? HR > 90 bpm. No. Patient's initial sepsis screen is negative. Does the patient have a suspected source of infection? No. Patient's initial sepsis screen is negative. Risk Assessment: Do you want to hurt yourself or someone else? Patient reports no desire to harm self or others. Onset of symptoms was April 12, 2020. 17:48 Method Of Arrival: Ambulatory ll1 17:48 Acuity: MICHELLE 2 ll1 Historical: - Allergies: 17:49 No Known Allergies; ll1 - PMHx: 17:49 Hypertension; ll1 - PSHx: 17:49 oral surgery; ll1 - Immunization history:: Flu vaccine is not up to date. - Social history:: Smoking status: Patient denies any tobacco usage or history of. Screenin:08 Abuse screen: Denies threats or abuse. Denies injuries from another. Nutritional hb screening: No deficits noted. Tuberculosis screening: No symptoms or risk factors identified. Fall Risk None identified. Assessment: 18:08 General: Appears in no apparent distress. Behavior is calm, cooperative. Pain: Pain hb currently is 7 out of 10 on a pain scale. Neuro: Level of Consciousness is awake, alert, obeys commands. Cardiovascular: Reports since substernal chest pain that radiates to left arm Capillary refill < 3 seconds Patient's skin is warm and dry. Respiratory: Respiratory effort is even, unlabored, Respiratory pattern is regular, symmetrical. GI: No signs and/or symptoms were reported involving the gastrointestinal system. : No signs and/or symptoms were reported regarding the genitourinary system. EENT: No signs and/or symptoms were reported regarding the EENT system. Derm: Skin is pink, warm \T\ dry. Musculoskeletal: No signs and/or symptoms reported regarding the musculoskeletal system. 18:31 Reassessment: Patient appears in no apparent distress at this time. Patient and/or ph family updated on plan of care and expected duration. Pain level reassessed. Patient is alert, oriented x 3, equal unlabored respirations, skin warm/dry/pink. 19:28 Reassessment: Patient appears in no apparent distress at this time. Patient and/or mg2 family updated on plan of care and expected duration. Pain level reassessed. Patient is alert, oriented x 3, equal unlabored respirations, skin warm/dry/pink. 19:53 Reassessment: seen by Farzana Baumanist. mg2 Vital Signs: 17:48 BP 231 / 121; Pulse 96; Resp 17; Temp 98.1; Pulse Ox 99% ; Weight 118.84 kg; Height 5 ll1 ft. 7 in. (170.18 cm); Pain 8/10; 18:28 BP 166 / 99; Pulse 84; Resp 18; Pulse Ox 96% on R/A; ph 19:28 BP 175 / 105; Pulse 80; Resp 18; Pulse Ox 97% on R/A; mg2 21:20 BP 153 / 109; Pulse 86; Resp 18; Pulse Ox 98% on R/A; rr5 17:48 Body Mass Index 41.03 (118.84 kg, 170.18 cm) ll1 ED Course: 17:47 Patient arrived in ED. ll1 17:49 Triage completed. ll1 17:49 Arm band placed on Patient placed in an exam room, on a stretcher. ll1 17:51 Denis Garza PA is PHCP. [facility] 17:51 Thomas Novak MD is Attending Physician. jmm 18:01 Patient maintains SpO2 saturation greater than 95% on room air. hb 18:02 EKG done, by ED staff, reviewed by Denis NGUYEN. mt 18:05 Inserted saline lock: 20 gauge in right antecubital area, using aseptic technique. hb Blood collected. 18:08 Patient has correct armband on for positive identification. Placed in gown. Bed in low hb position. Call light in reach. Side rails up X 1. color television console monitor on. Pulse ox on. NIBP on. 18:19 XRAY Chest (1 view) In Process Unspecified. EDMS 18:26 Meg Pimentel, RN is Primary Nurse. ph 19:01 CT Aorta for Dissection In Process Unspecified. EDMS 19:54 Pepe Wyatt is Hospitalizing Provider. [facility] 20:00 No provider procedures requiring assistance completed. COVID swab sent to lab. Patient mg2 admitted, IV remains in place. Administered Medications: 20:00 Drug: Aspirin Chewable Tablet 324 mg Route: PO; mg2 Outcome: 19:54 Decision to Hospitalize by Provider. [facility] 21:21 Admitted to ER Hold. Please see [facility] for further documentation. rr5 21:21 Condition: stable 21:21 Instructed on the need for admit, Demonstrated understanding of instructions. 04/14 10:43 Patient left the ED. bp Signatures: Dispatcher [employer] EDMS Denis Garza PA PA [facility] Meg Pimentel, RN RN Kiana Caceres RN JERRELL Kelsie De La Fuente nm Jack Maravilla RN RN Jeyson Musa RN RN mg2 Jean Martinez RN RN rr5 Armando Perdomo RN RN ll1 Corrections: (The following items were deleted from the chart) 03 17:50 17:48 Acuity: MICHELLE 3 ll1 ll1
--- NOTE | 2020-04-13 19:55 | EDPHYS ---
Physician Documentation [facility] Name: Fredrick Reyez Jr Age: 44 yrs Sex: Male : 1975 Arrival Date: 04/13/2020 Time: 17:47 Bed 4 Private MD: ED Physician Thomas Novak HPI: 04/13 18:15 This 44 yrs old Male presents to ER via Ambulatory with complaints of Chest jmm Pain. 18:15 The patient or guardian reports chest pain that is located primarily in the substernal [facility] area. Onset: gradually, 2 day(s) ago. The pain radiates to the left shoulder. Associated signs and symptoms: Pertinent positives: palpitations. The chest pain is described as a pressure, sharp. Duration: The patient or guardian reports multiple episodes. This is a 44 year old male with a history of HTN, DM. obesity that presents to the ED with complaints of substernal chest pain beginning approx 2 nights ago. Patient also complains of palpitations. No history of CAD. . Historical: - Allergies: 17:49 No Known Allergies; ll1 - PMHx: 17:49 Hypertension; ll1 - PSHx: 17:49 oral surgery; ll1 - Immunization history:: Flu vaccine is not up to date. - Social history:: Smoking status: Patient denies any tobacco usage or history of. ROS: 18:15 Constitutional: Negative for fever, chills, and weight loss. jmm 18:15 Respiratory: Negative for shortness of breath, cough, wheezing, and pleuritic chest pain, Abdomen/GI: Negative for abdominal pain, nausea, vomiting, diarrhea, and constipation, Back: Negative for injury and pain, Neuro: Negative for headache, weakness, numbness, tingling, and seizure. 18:15 Cardiovascular: Positive for chest pain. 18:15 Respiratory: 18:15 All other systems are negative. Exam: 18:15 Constitutional: This is a well developed, well nourished patient who is awake, alert, jmm and in no acute distress. Head/Face: atraumatic. Eyes: EOMI, no conjunctival erythema appreciated ENT: Moist Mucus Membranes Neck: Trachea midline, Supple Chest/axilla: Normal chest wall appearance and motion. Cardiovascular: Regular rate and rhythm. No edema appreciated Respiratory: Normal respirations, no respiratory distress appreciated Abdomen/GI: Non distended, soft Back: Normal ROM Skin: General appearance color normal MS/ Extremity: Moves all extremities, no obvious deformities appreciated, no edema noted to the lower extremities Neuro: Awake and alert, normal gait Psych: Behavior is normal, Mood is normal, Patient is cooperative and pleasant Vital Signs: 17:48 BP 231 / 121; Pulse 96; Resp 17; Temp 98.1; Pulse Ox 99% ; Weight 118.84 kg; Height 5 ll1 ft. 7 in. (170.18 cm); Pain 8/10; 18:28 BP 166 / 99; Pulse 84; Resp 18; Pulse Ox 96% on R/A; ph 19:28 BP 175 / 105; Pulse 80; Resp 18; Pulse Ox 97% on R/A; mg2 21:20 BP 153 / 109; Pulse 86; Resp 18; Pulse Ox 98% on R/A; rr5 17:48 Body Mass Index 41.03 (118.84 kg, 170.18 cm) ll1 MDM: 18:05 Patient medically screened. [facility] 19:50 The patient was given aspirin in the Emergency Department. Data reviewed: vital signs, [facility] nurses notes, lab test result(s). ED course: I discussed the patient with Mk Baig PA-C whom accepted the patient for admission to Dr. Wyatt. 04/13 17:52 Order name: Basic Metabolic Panel [facility] 04/13 17:52 Order name: CBC with Diff [facility] 04/13 17:52 Order name: LFT's [facility] 04/13 17:52 Order name: Magnesium [facility] 04/13 17:52 Order name: NT PRO-BNP; Complete Time: 19:03 [facility] 04/13 17:52 Order name: PT-INR; Complete Time: 18:23 [facility] 04/13 17:52 Order name: Troponin (emerg Dept Use Only); Complete Time: 19:03 [facility] 04/13 17:53 Order name: Basic Metabolic Panel; Complete Time: 19:03 [facility] 04/13 17:53 Order name: CBC with Automated Diff; Complete Time: 18:18 [facility] 04/13 17:53 Order name: Liver (Hepatic) Function; Complete Time: 19:03 [facility] 04/13 17:53 Order name: Magnesium; Complete Time: 19:03 [facility] 04/13 19:52 Order name: COVID-19 : Document "Date of Symptom Onset" if Symptomatic. mg2 04/13 20:08 Order name: CORONAVIRUS [facility] 04/13 20:47 Order name: SARS-COV-2 RT PCR; Complete Time: 22:20 [facility] 04/13 17:52 Order name: XRAY Chest (1 view); Complete Time: 19:03 [facility] 04/13 17:52 Order name: EKG; Complete Time: 17:53 [facility] 04/13 17:52 Order name: Cardiac monitoring; Complete Time: 18:02 [facility] 04/13 17:52 Order name: EKG - Nurse/Tech; Complete Time: 18:02 [facility] 04/13 17:52 Order name: IV Saline Lock; Complete Time: 18:27 [facility] 04/13 17:52 Order name: Labs collected and sent; Complete Time: 18:27 [facility] 04/13 18:06 Order name: CT Aorta for Dissection; Complete Time: 19:18 [facility] 04/13 21:58 Order name: Glucose, Ancillary Testing; Complete Time: 22:20 [facility] 04/13 22:42 Order name: T4 Free; Complete Time: 22:46 [facility] 04/13 22:42 Order name: Thyroid Stimulating Hormone; Complete Time: 22:46 [facility] 04/14 02:54 Order name: Troponin I [facility] 04/14 04:27 Order name: Urinalysis [facility] 04/14 05:24 Order name: Comprehensive Metabolic Panel [facility] 04/14 05:24 Order name: Lipid Profile [facility] 04/14 07:57 Order name: Glucose, Ancillary Testing [facility] 04/13 17:52 Order name: O2 Per Protocol; Complete Time: 18:02 [facility] 04/13 17:52 Order name: O2 Sat Monitoring; Complete Time: 18:02 [facility] Administered Medications: 20:00 Drug: Aspirin Chewable Tablet 324 mg Route: PO; mg2 Disposition: 04/14 11:10 Co-signature as Attending Physician, Thomas Novak MD. rn Disposition: 04/13/20 19:54 Hospitalization ordered by Pepe Wyatt for Observation. Preliminary diagnosis is Chest pain, unspecified. - Bed requested for Telemetry/MedSurg (observation). - Status is Observation. bp - Condition is Stable. - Problem is new. - Symptoms have improved. Signatures: Dispatcher [employer] EDMS Rajni Wiggins bd Denis Garza PA PA [facility] Thomas Novak MD MD rn Garcia, Cindy, RN RN cg Jack Maravilla, JERRELL RN bp Jeyson Musa, JERRELL ALLAN mg2 Armando Perdomo RN RN ll1 Corrections: (The following items were deleted from the chart) 04/13 21:21 19:54 Hospitalization Ordered by Pepe Wyatt for Observation. Preliminary diagnosis cg is Chest pain, unspecified. Bed requested for Telemetry/MedSurg (observation). Status is Observation. Condition is Stable. Problem is new. Symptoms have improved. [facility] 04/14 08:11 04/13 21:21 04/13/2020 19:54 Hospitalization Ordered by Pepe Wyatt for Observation. bd Preliminary diagnosis is Chest pain, unspecified. Bed requested for [facility] ER HOLD. Status is Observation. Condition is Stable. Problem is new. Symptoms have improved. cg 04/14 10:43 08:11 04/13/2020 19:54 Hospitalization Ordered by Pepe Wyatt for Observation. bp Preliminary diagnosis is Chest pain, unspecified. Bed requested for Telemetry/MedSurg (observation). Status is Observation. Condition is Stable. Problem is new. Symptoms have improved. bd
[2020-04-13] MEDS ORDERED: ASPIRIN 81 MG CHEWABLE TABLET ONE (20:11)
--- NOTE | 2020-04-13 20:41 | P.HP ---
Certification for Inpatient Patient admitted to: Observation With expected LOS: <2 Midnights Patient will require the following post-hospital care: None Practitioner: I am a practitioner with admitting privileges, knowledge of patient current condition, hospital course, and medical plan of care. Services: Services provided to patient in accordance with Admission requirements found in Title 42 Section 412.3 of the Code of Federal Regulations <JovanniTarahMk S - Last Filed: 04/14/20 04:33> Patient History Date of Service: 04/14/20 Primary Care Provider: none Reason for admission: chest pain History of Present Illness: Mr. Reyez is a 44 year old male with T2DM and HTN here today with episodic chest pain that began yesterday. He reports the chest pain as pressure and heat over his sternum with pain radiating down his left arm. It starts when he is sitting down and is relieved with walking and taking deep breaths. The episodes last for about 30 minutes. He reports lightheadedness, fatigue, nausea, vomiting (1 episode), blurry vision, anxiety, palpitations, and swelling in his feet. He denies night sweats, chills, SOB. Initial troponin, EKG and CXR normal. - Past Medical/Surgical History Diabetic: No -: HTN -: 4 wisdom teeth removed -: stitches to right eye Psychosocial/ Personal History: . Lives at home - Family History Father -: Hypertension, Lung disease, Diabetes Mother -: Hypertension - Social History Alcohol use: Yes CD- Drugs: No Caffeine use: Yes <Mk Baig - Last Filed: 04/14/20 04:33> Date of Service: 04/14/20 <camryn merchant - Last Filed: 04/14/20 14:14> Allergies No Known Allergies Allergy (Verified 04/13/20 21:16) Home Medications: Losartan Potassium [Cozaar*] 50 mg PO DAILY #30 tablet 09/19/19 Metformin HCl 1,000 mg PO BID #60 tablet 09/19/19 Aspirin [Aspirin EC] 81 mg PO DAILY #30 tablet. 04/14/20 Atorvastatin Calcium [Lipitor] 40 mg PO BEDTIME #30 tab 04/14/20 Melatonin 10 mg PO BEDTIME #30 tablet 04/14/20 Metoprolol Tartrate 25 mg PO BID #60 tablet 04/14/20 Trazodone [Desyrel*] 50 mg PO DAILY #15 tablet 04/14/20 Review of Systems General: As per HPI Eyes: Vision Change, As per HPI ENT: Unremarkable Respiratory: Unremarkable Cardiovascular: Chest Pain, Palpitations, Edema, Light Headedness, As per HPI Gastrointestinal: Nausea, Vomiting, As per HPI Genitourinary: Unremarkable Musculoskeletal: Unremarkable Integumentary: Unremarkable Neurological: Unremarkable Lymphatics: Unremarkable <Mk Baig - Last Filed: 04/14/20 04:33> Physical Examination - Vital Signs Temperature: 98.1 F Blood Pressure: 231/121 Pulse: 96 Respirations: 17 Pulse Ox (%): 99 - Physical Exam General: Alert, In no apparent distress, Oriented x3 HEENT: Atraumatic, Normocephalic, PERRLA, Mucous membr. moist/pink, EOMI, Sclerae nonicteric Neck: Supple, 2+ carotid pulse no bruit, JVD not distended, No Thyromegaly, No LAD Respiratory: Clear to auscultation bilaterally, Normal air movement Cardiovascular: No edema, Normal pulses, Regular rate/rhythm, Normal S1 S2, No gallops, No rubs, No murmurs Capillary refill: <2 Seconds Gastrointestinal: Normal bowel sounds, Soft and benign, Non-distended, No ascites, No tenderness, No masses, No rebound, No guarding Musculoskeletal: No clubbing, No swelling, No contractures, No erythema, No tenderness, No warmth Integumentary: No rashes, No breakdown, No significant lesion, No tenderness/swelling, No erythema, No warmth, No cyanosis Neurological: Normal speech, Normal strength at 5/5 x4 extr, Normal tone, Sensation intact, Cranial nerves 3-12 intact, Normal affect Lymphatics: No axilla or inguinal lymphadenopathy - Studies Laboratory Data (last 24 hrs) 04/13/20 18:03: PT 11.4, INR 0.99 04/13/20 18:03: WBC 10.60, Hgb 16.2, Hct 47.0, Plt Count 274 04/13/20 18:03: Sodium 140, Potassium 3.9, BUN 13, Creatinine 0.95, Glucose 143 H, Magnesium 2.6 H D, Total Bilirubin 0.6, AST 21, ALT 23, Alkaline Phosphatase 153 H <Mk Baig - Last Filed: 04/14/20 04:33> - Studies Laboratory Data (last 24 hrs) 04/14/20 05:00: WBC Cancelled, Hgb Cancelled, Hct Cancelled, Plt Count Cancelled 04/14/20 04:47: Sodium 141, Potassium 4.2, BUN 13, Creatinine 0.93, Glucose 156 H, Total Bilirubin 1.1 H, AST 22, ALT 23, Alkaline Phosphatase 135 H, Triglycerides 282 H, Cholesterol 190, HDL Cholesterol 36 L, Cholesterol/HDL Ratio 5.28 04/14/20 02:30: Troponin I < 0.02 04/14/20 02:00: Troponin I Cancelled 04/13/20 18:03: PT 11.4, INR 0.99 04/13/20 18:03: WBC 10.60, Hgb 16.2, Hct 47.0, Plt Count 274 04/13/20 18:03: Sodium 140, Potassium 3.9, BUN 13, Creatinine 0.95, Glucose 143 H, Magnesium 2.6 H D, Total Bilirubin 0.6, AST 21, ALT 23, Alkaline Phosphatase 153 H <camryn merchant - Last Filed: 04/14/20 14:14> Assessment and Plan - Problems (Diagnosis) (1) Chest pain Status: Acute Plan: cardiology consult placed. given ASA, BB, statin, PRN morphine and nitro. lipid panel, A1c, TSH/T4 pending. EKG and troponins q8hrs. Qualifiers: Chest pain type: other chest pain Qualified Code(s): R07.89 - Other chest pain; R07.8 - Other chest pain (2) Hypertension Status: Acute Plan: will restart home medications. added BB. continue to monitor. Qualifiers: Hypertension type: essential hypertension Qualified Code(s): I10 - Essential (primary) hypertension (3) Diabetes Status: Acute Plan: A1c ordered. on mild sliding scale insulin with ACHS checks. will continue to monitor. Qualifiers: Diabetes mellitus type: type 2 Diabetes mellitus rat exterminator insulin use: without rat exterminator use Diabetes mellitus complication status: without complication Qualified Code(s): E11.9 - Type 2 diabetes mellitus without complications Discharge Plan: Home Plan to discharge in: 24 Hours - Advance Directives Does patient have a Living Will: No Does patient have a Durable POA for Healthcare: No - Code Status/Comfort Care Code Status Assessed: Yes (full code) Critical Care: No Time Spent Managing Pts Care (In Minutes): 70 <Mk Baig - Last Filed: 04/14/20 04:33> Physician Review: Patient Assessed, Agree with Above Assessment and Plan Physician Review Additional Text: Chest pain. Hypertension DM type 2 Plan: Admit. Trend troponin Cardiology consult. <camryn merchant - Last Filed: 04/14/20 14:14>
[2020-04-13] MEDS ORDERED: NITROGLYCERIN 0.4 MG/TAB SL PRN (21:32)
[2020-04-13] MEDS ORDERED: MORPHINE 2 MG/ML SYR IV PRN (21:32)
[2020-04-13] MEDS: INSULIN -REGULAR HUMAN 50 UNIT/0.5 ML ML SQ SCH (21:32)
[2020-04-13] MEDS ORDERED: MELATONIN 5 MG TABLET PO PRN (21:32)
[2020-04-13] MEDS ORDERED: HYDRALAZINE HCL 20 MG/ML VIAL IV PRN (21:32)
[2020-04-13] MEDS ORDERED: ATORVASTATIN 40 MG TAB PO SCH (21:32)
[2020-04-13] MEDS ORDERED: ONDANSETRON 4 MG/2 ML VIAL IV PRN (21:32)
[2020-04-13] MEDS: METOPROLOL TAR 50 MG TAB PO SCH (21:48)
[2020-04-13] MEDS ORDERED: ATORVASTATIN 20 MG TAB ONE (22:01)
[2020-04-13] MEDS ORDERED: METOPROLOL TAR 50 MG TAB ONE (22:01)
[2020-04-13 22:29] VITALS: BMI 41.0
[2020-04-13 22:42] LABS: Thyroid Stimulating Hormone 1.22 uIU/mL (0.360-3.740)
[2020-04-14 03:40] VITALS: O2SAT 97
[2020-04-14 04:15] LABS: Urine Appearance CLEAR; Urine Bilirubin NEGATIVE (NEG); Urine Blood NEGATIVE (NEG); Urine Color YELLOW; Urine Glucose NEGATIVE (NEG); Urine Specific Gravity >=1.030 (1.005-1.030)
[2020-04-14 04:16] LABS: Urine Protein NEGATIVE (NEG); Urine Urobilinogen 0.2 mg/dL (0.2-1.0)
[2020-04-14 04:27] LABS: Urine Microscopic Reflex NO UMIC
[2020-04-14 04:34] VITALS: TEMP 98.1
[2020-04-14] MEDS ORDERED: ACETAMINOPHEN 325 MG TABLET PO PRN ×2 (05:09→05:33)
[2020-04-14 05:24] LABS: Albumin 3.8 g/dL (3.4-5.0); Bilirubin Total 1.1 mg/dL (0.2-1.0); Potassium 4.2 mmol/L (3.5-5.1); Protein, Total 7.2 g/dL (6.4-8.2)
[2020-04-14] MEDS ORDERED: ACETAMINOPHEN 325 MG TABLET ONE (06:01)
[2020-04-14] MEDS: INSULIN -REGULAR HUMAN 50 UNIT/0.5 ML ML SQ SCH (07:30)
[2020-04-14] MEDS ORDERED: LOSARTAN POTASSIUM 50 MG TABLET PO SCH ×2 (09:00)
[2020-04-14] MEDS: METOPROLOL TAR 50 MG TAB PO SCH (09:00)
[2020-04-14] MEDS ORDERED: ENOXAPARIN 40 MG/0.4 ML SQ SCH (09:00)
[2020-04-14 09:12] VITALS: BP 150/91
--- NOTE | 2020-04-14 10:06 | P.DS ---
Admission Date: 04/14/20 Discharge Date: 04/14/20 Primary Care Provider: none Disposition: ROUTINE DISCHARGE Discharge Condition: FAIR Reason for Admission: chest pain Consultations: Cardiology-Dr. Cook Brief History of Present Illness: 44-year-old gentleman with a history of type 2 diabetes and hypertension presented to the emergency department with a complaint of chest pain occurring at rest, intermittent in nature, radiating to the left hand, associated with dizziness fatigue and nausea. Initial troponin negative, CT dissection done was unremarkable. Patient hospitalized for ACS rule out. Hospital Course: Troponin trended negative. Patient was symptom-free during the hospital stay. He was seen and evaluated by cardiology-Dr. Cook Cleared patient for discharge. Dr. Cook will follow him in the office for stress test and echocardiogram. Patient is currently asymptomatic. ACS rule out. He is discharged with aspirin, metoprolol and statin. Vital Signs/Physical Exam: Temp Pulse Resp BP Pulse Ox 98.1 F 96 H 27 H 150/91 H 96 04/14/20 04:33 04/14/20 08:00 04/14/20 08:00 04/14/20 08:00 04/14/20 08:00 General: Alert, In no apparent distress, Oriented x3 HEENT: Mucous membr. moist/pink Neck: Supple, JVD not distended Respiratory: Clear to auscultation bilaterally, Normal air movement Cardiovascular: No edema, Regular rate/rhythm, Normal S1 S2 Gastrointestinal: Soft and benign, Non-distended Musculoskeletal: No swelling, No erythema Integumentary: No rashes Neurological: Normal strength at 5/5 x4 extr, Cranial nerves 3-12 intact Laboratory Data at Discharge: WBC Cancelled 04/14/20 05:00 Hgb Cancelled 04/14/20 05:00 Hct Cancelled 04/14/20 05:00 Plt Count Cancelled 04/14/20 05:00 PT 11.4 SECONDS (9.5-12.5) 04/13/20 18:03 INR 0.99 04/13/20 18:03 Sodium 141 mmol/L (136-145) 04/14/20 04:47 Potassium 4.2 mmol/L (3.5-5.1) 04/14/20 04:47 BUN 13 mg/dL (7-18) 04/14/20 04:47 Creatinine 0.93 mg/dL (0.55-1.3) 04/14/20 04:47 Glucose 156 mg/dL (74-106) H 04/14/20 04:47 Magnesium 2.6 mg/dL (1.8-2.4) H D 04/13/20 18:03 Total Bilirubin 1.1 mg/dL (0.2-1.0) H 04/14/20 04:47 AST 22 U/L (15-37) 04/14/20 04:47 ALT 23 U/L (12-78) 04/14/20 04:47 Alkaline Phosphatase 135 U/L (45-117) H 04/14/20 04:47 Troponin I < 0.02 ng/mL (0.0-0.045) 04/14/20 02:30 Triglycerides 282 mg/dL (<150) H 04/14/20 04:47 Cholesterol 190 mg/dL (<200) 04/14/20 04:47 HDL Cholesterol 36 mg/dL (40-60) L 04/14/20 04:47 Cholesterol/HDL Ratio 5.28 04/14/20 04:47 Home Medications: Losartan Potassium [Cozaar*] 50 mg PO DAILY #30 tablet 09/19/19 Metformin HCl 1,000 mg PO BID #60 tablet 09/19/19 Aspirin [Aspirin EC] 81 mg PO DAILY #30 tablet. 04/14/20 Atorvastatin Calcium [Lipitor] 40 mg PO BEDTIME #30 tab 04/14/20 Melatonin 10 mg PO BEDTIME #30 tablet 04/14/20 Metoprolol Tartrate 25 mg PO BID #60 tablet 04/14/20 New Medications: Aspirin [Aspirin EC] 81 mg PO DAILY #30 tablet. Atorvastatin Calcium [Lipitor] 40 mg PO BEDTIME #30 tab Melatonin 10 mg PO BEDTIME #30 tablet Metoprolol Tartrate 25 mg PO BID #60 tablet Physician Discharge Instructions: Please call Dr. Cook's office at [phone] for arrangement for Echo and Stress test. Diet: AHA Activity: Ad kelby Followup: Martell Cook MD [ACTIVE - CAN ADMIT] - 1 Week NONE,NONE [Primary Care Provider] - Time spent managing pt's care (in minutes): 28
[2020-04-14] MEDS ORDERED: METOPROLOL TAR 50 MG TAB ONE (10:52)
--- NOTE | 2020-04-15 05:17 | EKG ---
Test Date: 2020-04-13 Test Time: 17:58:09 Track Machine Operator Repairer: MEHREEN MEASUREMENT RESULTS: Intervals: Rate: 93 NJ: 164 QRSD: 102 QT: 346 QTc: 430 Brock: P: 36 NJ: 164 QRS: -19 T: 73 INTERPRETIVE STATEMENTS: Normal sinus rhythm Moderate voltage criteria for LVH, may be normal variant Borderline ECG Compared to ECG 09/16/2019 17:38:30 Left ventricular hypertrophy now present Myocardial infarct finding no longer present Electronically Signed On 04-15-20 05:11:52 BUSINESS SERVICES CLERK by Martell Cook
--- NOTE | 2020-04-17 11:25 | CON ---
Date of Consultation: 04/14/2020 Reason For Consultation: Chest pain. History Of Present Illness: Mr. Reyez is a 44-year-old male with a history of hypertension, who cam e in to the emergency room with 2 days 2 nights worth of palpitation and chest pain that radiates to the left shoulder without any nausea, vomiting, diaphoresis, PND, orthopnea, pedal edema, or syncope. Denied any fever or chills. His chest pain is not exertional. It is not related to food, time of the day or body position. He did describe that his left shoulder pain is worse on movement. By the time we saw him, he has already ruled out for an MD, but his blood pressure when he came in was 230/1 20. Past Medical History: Otherwise negative. Allergies: NONE. Review of Systems: Negative. Social History: Negative. Family History: Noncontributory. Medications: At home are supposed to be aspirin, Lipitor, losartan, metformin, metoprolol, and trazo done as well as melatonin. Physical Examination: Vital Signs: Blood pressure was mentioned earlier, it was elevated when he came in at 230/120. The last pressure when I saw him was 150/90, in sinus rhythm. HEENT: Negative. Neck: Supple with no bruit. Chest: Clear to auscultation and percussion. Cardiac: Revealed a regular rhythm and rate. No murmurs, gallops, or rubs. Abdomen: Benign. Extremities: Revealed no clubbing, cyanosis, or edema. Diagnostic Data: He had a chest x-ray that was negative. He had an EKG basically showed LVH. He serrano d a CT that was negative of the chest. Impression And Plan: Chest pain atypical, palpitations. I think secondary to severe hypertension th at is poorly controlled. I am not so sure how compliant Mr. Reyez is, but this was readdressed with him and his medication should be taken on a regular basis. He is feeling better, blood pressure is better. Workup is negative. Wants to go home, I agree with that, but he needs to take his medicatio n, be compliant with it. He can certainly increase his losartan to 100 mg daily. He should increase his metoprolol to 50 b.i.d. He should have an outpatient followup, but have an echocardiogram and a stress test at his convenience. NB/MODL Voice ID: [id number] Report ID: [id number]
== END 2020-04-14 10:45 | disposition home or self-care (01) | DRG 313 ==
LOC: ER 17:43 → ERHOLD 20:06 → 2ND 04-14 08:56 → OBSVTOIN 04-14 08:59 → ERHOLD 04-14 09:48
PROVIDERS: ADMIT Internal Medicine; ATTEND Internal Medicine
DX: R07.89 Other chest pain (principal); Z68.41 Body mass index [BMI] 40.0-44.9, adult; E66.9 Obesity, unspecified; I10 Essential (primary) hypertension; E11.9 Type 2 diabetes mellitus without complications; Z79.84 Long term (current) use of oral hypoglycemic drugs; Z79.82 Long term (current) use of aspirin; Z79.899 Other long term (current) drug therapy; Z20.822 Contact with and (suspected) exposure to COVID-19
CPT/HCPCS: 36415; 71045; 71275; 74175; 80048; 80053; 80061; 80076; 81003; 82947; 83735; 83880; 84439; 84443; 84484; 85025; 85610; 93005; 99285; G0378; Q9967; U0003

== ENCOUNTER 2021-08-27 16:51 | Emergency (ER) | payer SELFPAY ==
[2021-08-27] MEDS ORDERED: ONDANSETRON 4 MG/2 ML VIAL ONE (17:27)
[2021-08-27] MEDS ORDERED: NA CHLORIDE 0.9% 1,000 ML ONE (17:27)
[2021-08-27 17:35] LABS: Absolute Lymphocytes (CBC) 2.2 K/uL (0.7-4.9); Lymphocytes % 22.4 % (15.3-44.8); MCV 83.6 fL (80-100); MPV 7.5 fL (7.6-11.3); RBC Red Blood Cell Count 5.38 M/uL (4.33-5.43)
[2021-08-27 17:56] LABS: Bilirubin Total 0.7 mg/dL (0.2-1.0); Magnesium 2.5 mg/dL (1.8-2.4); Protein, Total 7.1 g/dL (6.4-8.2)
--- NOTE | 2021-08-27 18:09 | ER ---
Nurse's Notes [facility] Name: Fredrick Reyez Jr Age: 46 yrs Sex: Male : 1975 Arrival Date: 08/27/2021 Time: 16:58 Bed 11 Private MD: Diagnosis: Heat exhaustion, unspecified, initial encounter;Dehydration;Marijuana use Presentation: 08/27 17:05 Chief complaint: Patient states: WORKING OUTSIDE CUTTING DOWN TREES AND TOOK A BREAK TO [facility] SMOKE A VAPE OF THC WITH COLLEAGUES. HE STATED SHORTLY AFTER HE STARTED FEELING DIZZY, LIGHTHEADED AND BEGAN TO SWEAT. Coronavirus screen: Vaccine status: Patient reports being unvaccinated. Client denies travel out of the [place] in the last 14 days. At this time, the client does not indicate any symptoms associated with coronavirus-19. Ebola Screen: Patient negative for fever greater than or equal to 101.5 degrees Fahrenheit, and additional compatible Ebola Virus Disease symptoms. Initial Sepsis Screen: Does the patient meet any 2 criteria? No. Patient's initial sepsis screen is negative. Initial Sepsis Screen: Does the patient have a suspected source of infection? No. Patient's initial sepsis screen is negative. Risk Assessment: Do you want to hurt yourself or someone else? Patient reports no desire to harm self or others. Onset of symptoms was August 27, 2021. 17:05 Method Of Arrival: EMS: [place] [id number] 17:05 Acuity: MICHELLE 3 [facility] Triage Assessment: 17:06 General: Appears in no apparent distress. Behavior is calm, cooperative, appropriate [facility] for age. Pain: Denies pain. Historical: - Allergies: 17:06 NKDA; [facility] - Home Meds: 17:06 None [Active]; [facility] - PMHx: 17:06 Hypertension; [facility] - Immunization history:: Adult Immunizations up to date. - Social history:: Smoking status: Reported history of juuling and/or vaping. Screenin:07 Abuse screen: Denies threats or abuse. Nutritional screening: No deficits noted. [facility] Tuberculosis screening: No symptoms or risk factors identified. Fall Risk None identified. Assessment: 17:07 Reassessment: No changes from previously documented assessment. [facility] Vital Signs: 17:05 BP 115 / 66; Pulse 68; Resp 18; Temp 98.6(TE); Pulse Ox 96% on R/A; Weight 113.4 kg; 1 Height 5 ft. 9 in. (175.26 cm); Pain 0/10; 18:18 BP 117 / 71; Pulse 73; Resp 18; Pulse Ox 98% on R/A; 1 17:05 Body Mass Index 36.92 (113.40 kg, 175.26 cm) [facility] ED Course: 16:58 Patient arrived in ED. eb 16:59 Ronda Joaquin is Attending Physician. sd2 16:59 EKG done, by ED staff, reviewed by Ronda Joaquin. em1 17:05 Rajni Henry, RN is Primary Nurse. [facility] 17:06 Triage completed. [facility] 17:06 Arm band placed on right wrist. [facility] 17:07 No provider procedures requiring assistance completed. Inserted saline lock: 20 gauge bh1 in right antecubital area, using aseptic technique. 17:07 Patient has correct armband on for positive identification. Bed in low position. Call 1 light in reach. Side rails up X 1. satellite project site monitor on. Pulse ox on. NIBP on. 17:08 No apparent distress. Resting quietly. [facility] 17:28 CK Sent. [facility] 17:28 Troponin High Sensitivity Sent. [facility] 17:28 CMP Sent. [facility] 17:28 Magnesium Sent. [facility] 17:28 CBC with Diff Sent. 1 18:18 IV discontinued, intact, bleeding controlled, No redness/swelling at site. [facility] Administered Medications: 17:28 Drug: NS 0.9% 1000 ml Route: IV; Rate: 125 ml/hr; Site: right antecubital; [facility] 18:19 Follow up: IV Status: Infusion continued; IV Intake: 1000ml [facility] 17:28 Drug: Zofran (Ondansetron) 4 mg Route: IVP; Site: right antecubital; [facility] 17:28 Follow up: Response: No adverse reaction [facility] Medication: 17:07 VIS not applicable for this client. [facility] Intake: 18:19 IV: 1000ml; Total: 1000ml. [facility] Outcome: 18:09 Discharge ordered by . sd2 18:18 Discharged to home ambulatory. [facility] 18:18 Condition: good 18:18 Discharge instructions given to patient, Instructed on discharge instructions, follow up and referral plans. Demonstrated understanding of instructions, follow-up care. 18:19 Patient left the ED. [facility] Signatures: Wilman Montoya1 Rachna Baez [place] sd2 Rajni Henry, RN RN [facility]
--- NOTE | 2021-08-27 18:09 | EDPHYS ---
Physician Documentation [facility] Name: Fredrick Reyez Jr Age: 46 yrs Sex: Male : 1975 Arrival Date: 08/27/2021 Time: 16:58 Bed 11 Private MD: ED Physician Ronda Joaquin HPI: 08/27 17:41 This 46 yrs old Male presents to ER via EMS with complaints of heat exposure. sd2 17:41 46-year-old male presents via EMS with chief complaint of heat exposure. 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 He was also vaping THC just prior to the episode that occurred with associated lightheadedness, dizziness and near syncopal episode. He denies any recent illness, fever, chest pain, shortness of breath, vomiting or diarrhea. He does endorse some associated nausea. He states he is feeling improved now that he has received some fluids from EMS. He otherwise denies any acute complaints at this time.. Historical: - Allergies: 17:06 NKDA; bh1 - Home Meds: 17:06 None [Active]; bh1 - PMHx: 17:06 Hypertension; bh1 - Immunization history:: Adult Immunizations up to date. - Social history:: Smoking status: Reported history of juuling and/or vaping. ROS: 17:41 Constitutional: Negative for fever, chills, and weight loss, Cardiovascular: Negative sd2 for chest pain, palpitations, and edema, Respiratory: Negative for shortness of breath, cough, wheezing. Abdomen/GI: Negative for abdominal pain, vomiting, diarrhea. Positive for nausea. Back: Negative for injury and pain, Skin: Negative for injury, rash, and discoloration, Neuro: Negative for headache, numbness and tingling. Exam: 17:41 Constitutional: This is a well developed, well nourished patient who is awake, alert, sd2 and in no acute distress. Head/Face: Normocephalic, atraumatic. Chest/axilla: Normal chest wall appearance and motion. Nontender with no deformity. Cardiovascular: Regular rate and rhythm with a normal S1 and S2. No gallops, murmurs, or rubs. 2+ distal pulses. Respiratory: Lungs have equal breath sounds bilaterally, clear to auscultation and percussion. No rales, rhonchi or wheezes noted. No increased work of breathing, no retractions or nasal flaring. Abdomen/GI: Soft, non-tender, with normal bowel sounds. No guarding or rebound. No evidence of tenderness throughout. Skin: Warm, dry with normal turgor. Normal color with no rashes, no lesions, and no evidence of cellulitis. MS/ Extremity: Pulses equal, no cyanosis. Neurovascular intact. Full, normal range of motion. Ambulatory without difficulty. Psych: Awake, alert, with orientation to person, place and time. Behavior, mood, and affect are within normal limits. 18:11 ECG was reviewed by the Attending Physician. NSR, rate 65, no STEMI criteria sd2 Vital Signs: 17:05 BP 115 / 66; Pulse 68; Resp 18; Temp 98.6(TE); Pulse Ox 96% on R/A; Weight 113.4 kg; bh1 Height 5 ft. 9 in. (175.26 cm); Pain 0/10; 18:18 BP 117 / 71; Pulse 73; Resp 18; Pulse Ox 98% on R/A; bh1 17:05 Body Mass Index 36.92 (113.40 kg, 175.26 cm) bh1 MDM: 17:06 Patient medically screened. sd2 17:41 Differential Diagnosis Heat exhaustion, heat stroke, dehydration, electrolyte sd2 abnormality, substance abuse, ACS among others. Data reviewed: vital signs, nurses notes. 18:06 Data reviewed: EMS record, lab test result(s). Counseling: I had a detailed discussion sd2 with the patient and/or guardian regarding: the historical points, exam findings, and any diagnostic results supporting the discharge/admit diagnosis, lab results, the need for outpatient follow up, to return to the emergency department if symptoms worsen or persist or if there are any questions or concerns that arise at home. Counseling: I had a detailed discussion with the patient and/or guardian regarding: Substance abuse cessation. Medical screen evaluation completed. EMTALA emergency medical condition absent. ED course: Labs reviewed and grossly WNCL. Creatinine mildly elevated. Pt unsure of what his normal baseline kidney function is. BP stable. CK normal. Doubt rhabdo at this time. Pt feeling much improved after IVFs. Tolerating PO. Comfortable with plan for discharge and outpatient follow up. Verbalizes understanding of discharge plan and strict return precautions. Counseled on cessation of illicit drug use.. 08/27 17:11 Order name: CBC with Diff; Complete Time: 18:03 08/27 17:11 Order name: CMP; Complete Time: 18:03 08/27 17:11 Order name: Magnesium; Complete Time: 18:03 08/27 17:11 Order name: Troponin High Sensitivity; Complete Time: 18:03 08/27 17:11 Order name: CK; Complete Time: 18:03 08/27 17:11 Order name: EKG - Nurse/Tech; Complete Time: 17:18 sd2 Administered Medications: 17:28 Drug: NS 0.9% 1000 ml Route: IV; Rate: 125 ml/hr; Site: right antecubital; [facility] 18:19 Follow up: IV Status: Infusion continued; IV Intake: 1000ml [facility] 17:28 Drug: Zofran (Ondansetron) 4 mg Route: IVP; Site: right antecubital; [facility] 17:28 Follow up: Response: No adverse reaction [facility] Disposition Summary: 08/27/21 18:09 Discharge Ordered Location: Home sd2 Problem: new sd2 Symptoms: have improved sd2 Condition: Stable sd2 Diagnosis - Heat exhaustion, unspecified, initial encounter sd2 - Dehydration sd2 - Marijuana use sd2 Followup: sd2 - With: Private Physician - When: 2 - 3 days - Reason: Recheck today's complaints, Continuance of care, Re-evaluation by your physician Followup: sd2 - With: Emergency Department - When: As needed - Reason: Discharge Instructions: - Discharge Summary Sheet sd2 - Dehydration, Adult sd2 - Heat Exhaustion sd2 - Preventing Heat Exhaustion, Adult sd2 Forms: - Medication Reconciliation Form sd2 - Thank You Letter sd2 - Antibiotic Education sd2 - Prescription Opioid Use sd2 Signatures: Dispatcher [employer] Ronda Mancini2 Rajni Henry, RN RN [facility]
[2021-08-27 18:29] VITALS: TEMP 98.6
[2021-08-27 18:31] VITALS: BP 117/71; O2SAT 98
--- NOTE | 2021-08-29 09:29 | EKG ---
Test Date: 2021-08-27 Test Time: 16:53:37 Radio Antenna Installer: ESTRELLA MEASUREMENT RESULTS: Intervals: Rate: 65 NJ: 170 QRSD: 96 QT: 398 QTc: 413 [place]: P: 51 NJ: 170 QRS: 23 T: 33 INTERPRETIVE STATEMENTS: Normal sinus rhythm Normal ECG Compared to ECG 04/13/2020 17:58:09 Left ventricular hypertrophy no longer present Electronically Signed On 08-29-21 09:25:06 CDT by Martell Cook
== END 2021-08-27 18:19 | disposition home or self-care (01) ==
LOC: ER 16:51
DX: T67.5XXA Heat exhaustion, unspecified, initial encounter (principal); E86.0 Dehydration; F12.90 Cannabis use, unspecified, uncomplicated; R11.0 Nausea; I10 Essential (primary) hypertension
CPT/HCPCS: 36415; 80053; 82550; 83735; 84484; 85025; 93005; 96361; 96374; 99284; J2405; J7030

== ENCOUNTER 2022-03-07 18:24 | Observation (INO) | payer SELFPAY ==
[2022-03-07] MEDS ORDERED: ASPIRIN 81 MG CHEWABLE TABLET ONE (19:02)
[2022-03-07 19:38] LABS: Absolute Lymphocytes (CBC) 3.8 K/uL (0.7-4.9); Hematocrit 49.1 % (39.6-49.0); Lymphocytes % 33.3 % (15.3-44.8); MCV 84.6 fL (80-100)
[2022-03-07 19:41] LABS: Protime INR 1.01
[2022-03-07] MEDS ORDERED: NITROGLYCERIN 0.4 MG/TAB SL ONE (19:51)
[2022-03-07 19:57] LABS: Albumin 4.4 g/dL (3.4-5.0); Bilirubin Direct 0.2 mg/dL (0-0.2); Bilirubin Total 0.9 mg/dL (0.2-1.0); Magnesium 2.6 mg/dL (1.6-2.4); Potassium 4.3 mmol/L (3.5-5.1); Troponin High Sensitivity 10.8 pg/mL (<58.9)
--- NOTE | 2022-03-07 20:00 | RAD REPORT ---
EXAM DESCRIPTION: RAD - Chest Single View - 03/07/2022 7:55 pm CLINICAL HISTORY: CHEST PAIN Chest pain. COMPARISON: Chest Single View dated 04/13/2020; Chest Single View dated 09/16/2019; Chest Single View d ated 09/10/2019; CHEST SINGLE VIEW dated 10/14/2013 FINDINGS: Portable technique limits examination quality. The lungs are grossly clear. The heart is normal in size. No displaced fractures. IMPRESSION: No acute intrathoracic process suspected.
--- NOTE | 2022-03-07 20:52 | RAD REPORT ---
EXAM DESCRIPTION: CT - Head Brain Wo Cont - 03/07/2022 8:42 pm CLINICAL HISTORY: headache, htn COMPARISON: HEAD BRAIN W O CONTRAST dated 10/14/2013 TECHNIQUE: All CT scans are performed using dose optimization technique as appropriate and may inclu de automated exposure control or mA/KV adjustment according to patient size. FINDINGS: No intracranial hemorrhage, hydrocephalus or extra-axial fluid collection.No areas of brai n edema or evidence of midline shift. The paranasal sinuses and mastoids are clear. The calvarium is intact. IMPRESSION: No acute intracranial abnormality.
[2022-03-07] MEDS ORDERED: AMLODIPINE 10 MG TAB ONE (20:58)
--- NOTE | 2022-03-07 21:14 | ER ---
Nurse's Notes [facility] Name: Fredrick Reyez Jr Age: 46 yrs Sex: Male : 1975 Arrival Date: 03/07/2022 Time: 18:25 Bed 27 Private MD: Diagnosis: Chest pain, unspecified;Hypertensive heart disease without heart failure Presentation: 03/07 18:48 Chief complaint: Patient states: BP at home 209/119 about 30 minutes ago, states nausea vg1 and headache with chest pain. Took 2 Metoprolol at time of high BP. Coronavirus screen: Vaccine status: Patient reports being unvaccinated. Client denies travel out of the [place] in the last 14 days. Ebola Screen: Patient negative for fever greater than or equal to 101.5 degrees Fahrenheit, and additional compatible Ebola Virus Disease symptoms. Risk Assessment: Do you want to hurt yourself or someone else?. Onset of symptoms was March 07, 2022. 18:48 Method Of Arrival: Ambulatory vg1 18:48 Acuity: MICHELLE 2 vg1 18:51 Initial Sepsis Screen: Does the patient meet any 2 criteria? No. Patient's initial vg1 sepsis screen is negative. Does the patient have a suspected source of infection? No. Patient's initial sepsis screen is negative. Triage Assessment: 18:51 General: Appears in no apparent distress. uncomfortable, Behavior is anxious. Pain: vg1 Complains of pain in chest and head Pain. Neuro: Level of Consciousness is awake, alert, obeys commands, Oriented to person, place, time, situation. Cardiovascular: Patient's skin is warm and dry. Respiratory: Airway is patent Respiratory effort is even, unlabored. GI: Reports nausea. Historical: - Allergies: 18:51 NKDA; vg1 - Home Meds: 18:51 Metformin Oral [Active]; Metoprolol Tartrate Oral [Active]; vg1 18:56 amlodipine oral [Active]; vg1 - PMHx: 18:51 Hypertension; Diabetes mellitus; vg1 - Immunization history:: Client reports having NOT received the Covid vaccine. - Social history:: Smoking status: Patient reports the use of cigarette tobacco products, denies chronic smoking, but will smoke occasionally. Screenin:58 [facility] ED Fall Risk Assessment (Adult) History of falling in the last 3 months, mb9 including since admission No falls in past 3 months (0 pts) Confusion or Disorientation No (0 pts) Intoxicated or Sedated No (0 pts) Impaired Gait No (0 pts) Mobility Assist Device Used No (0 pt) Altered Elimination No (0 pt) Score/Fall Risk Level 0 - 2 = Low Risk Oriented to surroundings, Maintained a safe environment. Abuse screen: Denies threats or abuse. Nutritional screening: No deficits noted. Tuberculosis screening: No symptoms or risk factors identified. Assessment: 18:57 Reassessment: received VO from Kaya NGUYEN to administer 324 mg of aspirin PO x 1. vg1 19:01 Reassessment: EKG completed in triage. vg1 19:46 Reassessment: pt brought back to ER room. mb9 19:56 General: Appears comfortable, Behavior is cooperative. Neuro: [place] mb9 Agitation-Sedation Scale (RASS): 0 - Alert and Calm Level of Consciousness is awake, alert, obeys commands, Oriented to person, place, time, situation, Appropriate for age. Cardiovascular: Heart tones S1 S2 present Capillary refill < 3 seconds is brisk Patient's skin is warm and dry. Rhythm is regular Chest pain is described as mild, quality is burning, is located in left anterior epigastric area. Respiratory: Airway is patent Respiratory effort is even, unlabored, Respiratory pattern is regular, symmetrical, Breath sounds are clear bilaterally. GI: Abdomen is round non-distended, Bowel sounds present X 4 quads. Abd is soft and non tender X 4 quads. : No signs and/or symptoms were reported regarding the genitourinary system. EENT: No signs and/or symptoms were reported regarding the EENT system. Derm: Skin is pink, warm \T\ dry. Musculoskeletal: Range of motion: intact in all extremities. 20:58 Reassessment: pt denies chest pain at this time. Respirations are even and unlabored. mb9 Skin is pink, warm, and dry. 21:55 Reassessment: No changes from previously documented assessment. Patient and/or family mb9 updated on plan of care and expected duration. Pain level reassessed. Patient is alert, oriented x 3, equal unlabored respirations, skin warm/dry/pink. Patient states feeling better. Patient states symptoms have improved. Pain: Denies pain. 22:54 Reassessment: No changes from previously documented assessment. Patient and/or family mb9 updated on plan of care and expected duration. Pain level reassessed. Patient is alert, oriented x 3, equal unlabored respirations, skin warm/dry/pink. Cardiovascular: Denies chest pain. 23:24 Reassessment: pt admitted to ED hold is A\T\O x 4, resp unlabored,c/o headache Matt Attema bb TOXICOLOGY SUPERVISOR notified new orders received pt medicated see APR. Vital Signs: 18:48 BP 195 / 118 RA; Pulse 77; Resp 18; Temp 97.5(TE); Pulse Ox 98% on R/A; vg1 18:51 BP 192 / 113; Pulse 74 LA; vg1 19:56 BP 180 / 100; Pulse 66; Resp 20; Pulse Ox 100% on R/A; mb9 20:58 BP 163 / 96; Pulse 66; Resp 21; Pulse Ox 100% on R/A; mb9 21:55 BP 173 / 100; Pulse 67; Resp 20; Pulse Ox 100% ; Pain 0/10; mb9 ED Course: 18:25 Patient arrived in ED. as 18:39 Oneal Kirkpatrick PA is PHCP. cp 18:39 Thomas Novak MD is Attending Physician. cp 18:51 Triage completed. vg1 18:51 Arm band placed on. vg1 19:01 EKG completed in triage. Results shown to MD. vg1 19:29 Basic Metabolic Panel Sent. rv1 19:29 CBC with Diff Sent. rv1 19:29 Magnesium Sent. rv1 19:29 LFT's Sent. rv1 19:29 NT PRO-BNP Sent. rv1 19:29 PT-INR Sent. rv1 19:29 Troponin HS Sent. rv1 19:30 Inserted saline lock: 20 gauge in left antecubital area, using aseptic technique. Blood rv1 collected. 19:56 XRAY Chest (1 view) In Process Unspecified. EDMS 19:56 Morena Anderson, JERRELL is Primary Nurse. mb9 19:58 No provider procedures requiring assistance completed. mb9 20:44 CT Head Brain wo Cont In Process Unspecified. EDMS 21:13 Cezar Zaldivar MD is Hospitalizing Provider. cp 21:31 SARS RAPID Sent. mb9 23:07 Patient has correct armband on for positive identification. bb 23:07 Patient admitted, IV remains in place. bb Administered Medications: 19:01 Drug: Aspirin Chewable Tablet 324 mg Route: PO; vg1 19:56 Drug: Nitroglycerin 0.4 mg Route: Sublingual; mb9 20:50 Follow up: Response: No adverse reaction mb9 20:58 Drug: amLODIPine 10 mg Route: PO; mb9 21:38 Follow up: Response: No adverse reaction mb9 21:40 Drug: Pepcid (famotidine) 20 mg Route: IVP; Site: left antecubital; mb9 22:26 Follow up: Response: No adverse reaction mb9 23:24 Drug: Tylenol 650 mg Route: PO; bb Medication: 19:58 VIS not applicable for this client. mb9 Outcome: 21:14 Decision to Hospitalize by Provider. cp 23:07 Admitted to ER Hold. Please see [facility] for further documentation. bb 23:07 Condition: stable 23:07 Instructed on the need for admit. 03/08 09:07 Patient left the ED. kl Signatures: Dispatcher [employer] EDMS Kristal Perdomo RN RN kl Martinez, Amelia as Ballard, Brenda RN RN Oneal Cazares PA PA cp Garcia, Victoria RN RN vg1 Morena Anderson, RN RN mb9 Yarely Reardon rv1 Corrections: (The following items were deleted from the chart) 03/07 18:52 18:48 Chief complaint: Patient states: BP at home 209/119 about 30 minutes ago, states vg1 nausea and headache with chest pain vg1
--- NOTE | 2022-03-07 21:14 | EDPHYS ---
Physician Documentation [facility] Name: Fredrick Reyez Jr Age: 46 yrs Sex: Male : 1975 Arrival Date: 03/07/2022 Time: 18:25 Bed 27 Private MD: ED Physician Thomas Novak HPI: 03/07 19:00 This 46 yrs old Male presents to ER via Ambulatory with complaints of High cp Blood Pressure, Medication Refill. 19:00 The patient or guardian reports chest pain that is located primarily in the anterior cp chest wall. 19:00 Onset: 30 minute(s) ago. cp 19:00 The patient has elevated blood pressure and discovered this at home, with a home cp device. Associated signs and symptoms: Pertinent positives: chest pain, headache, nausea, Pertinent negatives: visual changes, vomiting, weakness. The chest pain is described as a pressure. Duration: The patient or guardian reports a single episode, that is still ongoing, but improving. Severity of symptoms: At its worst the blood pressure was 209 mm Hg, in the emergency department the blood pressure is improved, mildly, 195 mm Hg. Patient reports running out of prescribed amlodipine for past several months. Historical: - Allergies: 18:51 NKDA; vg1 - Home Meds: 18:51 Metformin Oral [Active]; Metoprolol Tartrate Oral [Active]; vg1 18:56 amlodipine oral [Active]; vg1 - PMHx: 18:51 Hypertension; Diabetes mellitus; vg1 - Immunization history:: Client reports having NOT received the Covid vaccine. - Social history:: Smoking status: Patient reports the use of cigarette tobacco products, denies chronic smoking, but will smoke occasionally. ROS: 19:05 Constitutional: Negative for body aches, chills, fever, poor PO intake. cp 19:05 Eyes: Negative for injury, pain, redness, and discharge. cp 19:05 ENT: Negative for drainage from ear(s), ear pain, sore throat, difficulty swallowing, difficulty handling secretions. 19:05 Cardiovascular: Positive for chest pain, Negative for edema, palpitations. 19:05 Respiratory: Negative for cough, shortness of breath, wheezing. 19:05 Abdomen/GI: Negative for abdominal pain, vomiting, diarrhea, constipation. 19:05 Neuro: Positive for headache, tingling, of the left arm, Negative for altered mental status, numbness, weakness. Exam: 19:00 ECG was reviewed by the Attending Physician. cp 19:10 Constitutional: The patient appears in no acute distress, alert, awake, cp non-diaphoretic, non-toxic, well developed, well nourished, overweight 19:10 Head/Face: Normocephalic, atraumatic. cp 19:10 Eyes: Periorbital structures: appear normal, Pupils: equal, round, and reactive to light and accomodation, Extraocular movements: intact throughout, Conjunctiva: normal, no exudate, no injection, Sclera: no appreciated abnormality, Lids and lashes: appear normal, bilaterally. 19:10 ENT: External ear(s): are unremarkable, Nose: is normal, Mouth: Lips: moist, Oral mucosa: moist, Posterior pharynx: is normal, airway is patent, no erythema, no exudate. 19:10 Neck: ROM/movement: is normal, is supple, without pain, no range of motions limitations. 19:10 Chest/axilla: Inspection: normal. 19:10 Cardiovascular: Rate: normal, Rhythm: regular, Edema: is not appreciated, JVD: is not appreciated. 19:10 Respiratory: the patient does not display signs of respiratory distress, Respirations: normal, no use of accessory muscles, no retractions, labored breathing, is not present, Breath sounds: are clear throughout, no decreased breath sounds, no stridor, no wheezing. 19:10 Abdomen/GI: Exam negative for discomfort, distension, guarding, Inspection: abdomen appears normal. 19:10 Neuro: Orientation: to person, place \T\ time. Mentation: is normal, Cerebellar function: is grossly normal, Motor: moves all fours, strength is normal, Sensation: no obvious gross deficits. Vital Signs: 18:48 BP 195 / 118 RA; Pulse 77; Resp 18; Temp 97.5(TE); Pulse Ox 98% on R/A; vg1 18:51 BP 192 / 113; Pulse 74 LA; vg1 19:56 BP 180 / 100; Pulse 66; Resp 20; Pulse Ox 100% on R/A; mb9 20:58 BP 163 / 96; Pulse 66; Resp 21; Pulse Ox 100% on R/A; mb9 21:55 BP 173 / 100; Pulse 67; Resp 20; Pulse Ox 100% ; Pain 0/10; mb9 MDM: 19:00 Patient medically screened. cp 19:30 The patient was given aspirin in the Emergency Department. cp 19:30 Differential diagnosis: abnormal EKG, acute myocardial infarction, acute pericarditis, cp hypertensive crisis, Malignant HTN, CVA, intracerebral hemorrhage, pneumonia, pneumothorax, pulmonary embolus, stable angina, thoracic aortic disection, unstable angina. 21:05 Data reviewed: vital signs, nurses notes, lab test result(s), EKG, radiologic studies, cp CT scan, plain films. 21:05 Consideration of Admission/Observation Patient was admitted/placed on observation. cp Management of patient was discussed with the following: Hospitalist: Matt Jones NP. I considered the following discharge prescriptions or medication management in the emergency department Medications were administered in the Emergency Department. See MAR. Care significantly affected by the following chronic conditions: Diabetes, Hypertension. Counseling: I had a detailed discussion with the patient and/or guardian regarding: the historical points, exam findings, and any diagnostic results supporting the discharge/admit diagnosis, the presence of at least one elevated blood pressure reading (>120/80) during this emergency department visit, lab results, radiology results, the need for further work-up and treatment in the hospital. Response to treatment: the patient's symptoms have mildly improved after treatment, and as a result, I will admit patient. 03/07 19:02 Order name: Basic Metabolic Panel; Complete Time: 20:20 cp 03/07 20:20 Interpretation: Normal except: GLUC 133; GFR 86. cp 03/07 19:02 Order name: CBC with Diff; Complete Time: 19:53 cp 03/07 19:02 Order name: LFT's; Complete Time: 20:20 cp 03/07 20:20 Interpretation: Normal except: ALT 13; GLOB 3.6. cp 03/07 19:02 Order name: Magnesium; Complete Time: 20:20 cp 03/07 19:02 Order name: NT PRO-BNP; Complete Time: 20:20 cp 03/07 19:02 Order name: PT-INR; Complete Time: 19:53 cp 03/07 19:02 Order name: Troponin HS; Complete Time: 20:20 cp 03/07 21:22 Order name: SARS RAPID; Complete Time: 23:30 mb9 03/07 23:52 Order name: Troponin High Sensitivity; Complete Time: 04:33 EDMS 03/08 03:02 Order name: CBC with Automated Diff; Complete Time: 04:33 EDMS 03/08 03:43 Order name: Hemoglobin A1c; Complete Time: 04:33 EDMS 03/08 03:44 Order name: Basic Metabolic Panel; Complete Time: 04:33 EDMS 03/08 03:44 Order name: Troponin High Sensitivity; Complete Time: 04:33 EDMS 03/08 03:44 Order name: Lipid Profile; Complete Time: 04:33 EDMS 03/07 19:02 Order name: XRAY Chest (1 view); Complete Time: 20:20 cp 03/07 20:20 Interpretation: Report review. 03/07 19:02 Order name: EKG; Complete Time: 19:03 cp 03/07 19:02 Order name: Cardiac monitoring; Complete Time: 19:45 cp 03/07 19:02 Order name: EKG - Nurse/Tech; Complete Time: 19:09 cp 03/07 19:02 Order name: IV Saline Lock; Complete Time: 19:29 cp 03/07 19:02 Order name: Labs collected and sent; Complete Time: 19:29 cp 03/07 19:02 Order name: O2 Per Protocol; Complete Time: 19:09 cp 03/07 19:02 Order name: O2 Sat Monitoring; Complete Time: 19:09 cp 03/07 20:31 Order name: CT Head Brain wo Cont; Complete Time: 21:00 cp 03/07 21:00 Interpretation: Report reviewed. 03/08 03:44 Order name: T4 Free; Complete Time: 04:33 EDMS 03/08 03:44 Order name: Thyroid Stimulating Hormone; Complete Time: 04:33 EDMS EC:00 Rate is 74 beats/min. Rhythm is regular. [place] interval is normal. QRS interval is normal. cp QT interval is normal. T waves are Inverted in leads I, II, aVL, aVF. Interpreted by me. Reviewed by me. Administered Medications: 19:01 Drug: Aspirin Chewable Tablet 324 mg Route: PO; vg1 19:56 Drug: Nitroglycerin 0.4 mg Route: Sublingual; mb9 20:50 Follow up: Response: No adverse reaction mb9 20:58 Drug: amLODIPine 10 mg Route: PO; mb9 21:38 Follow up: Response: No adverse reaction mb9 21:40 Drug: Pepcid (famotidine) 20 mg Route: IVP; Site: left antecubital; mb9 22:26 Follow up: Response: No adverse reaction mb9 23:24 Drug: Tylenol 650 mg Route: PO; bb Disposition Summary: 03/07/22 21:14 Hospitalization Ordered Hospitalization Status: Observation cp Provider: Cezar Zaldivar cp Condition: Stable cp Problem: new cp Symptoms: have improved cp Bed/Room Type: Standard cp Location: Telemetry/MedSurg (observation)(03/08/22 07:14) bd Room Assignment: 423(03/08/22 07:14) bd Diagnosis - Chest pain, unspecified cp - Hypertensive heart disease without heart failure cp Forms: - Medication Reconciliation Form cp - SBAR form cp Signatures: Dispatcher [employer] EDMS Rajni Wiggins Martha RN Nemo Graham RN RN Matt Godoy, HEALTH SPECIALIST-C HEALTH SPECIALIST-Cla1 Oneal Kirkpatrick PA PA cp Garcia, Victoria RN RN vg1 Janette White RN RN kd3 Morena Anderson, RN RN mb9 Corrections: (The following items were deleted from the chart) 22:53 21:14 Telemetry/MedSurg (observation) cp mw 22:53 21:14 cp mw 03/08 07:14 03/07 22:53 [facility] ER HOLD mw bd 03/08 07:14 03/07 22:53 ERHOLD- mw bd 03/09 06:07 03/07 19:00 Associated signs and symptoms: Pertinent positives: chest pain, headache, cp Pertinent negatives: vomiting, weakness, cp 03/09 06:07 03/07 19:00 Severity of symptoms: in the emergency department the blood pressure is cp improved, mildly, 195 mm Hg, cp
--- NOTE | 2022-03-07 21:35 | P.HP ---
Certification for Inpatient Patient admitted to: Observation With expected LOS: <2 Midnights Patient will require the following post-hospital care: None Practitioner: I am a practitioner with admitting privileges, knowledge of patient current condition, hospital course, and medical plan of care. Services: Services provided to patient in accordance with Admission requirements found in Title 42 Section 412.3 of the Code of Federal Regulations <Matt Jones - Last Filed: 03/07/22 22:04> Patient History Date of Service: 03/07/22 Primary Care Provider: Dr. Hannah Reason for admission: Chest pain, HTN urgency History of Present Illness: 46-year-old male with history of hypertension, [id number] diabetes presents the emergency department with high blood pressure, chest pain, headache. He reports he has been without his medications at home including amlodipine, metoprolol, atorvastatin for the last 1 to 2 months, he notices blood pressures running very high at home in the 200s over 100s he took 2 metoprolol pills prior to arrival, unsure of dose. Blood pressure has improved, he was complaining of some mild burning chest pain as well as headache. He was evaluated in the emergency department his initial high-sensitivity troponin was normal at 10.8 chest x-ray is unremarkable CT head without contrast negative for any acute findings blood pressure has improved currently 163/96. It was noted that patient did have some EKG changes when compared to previous with inverted T waves in leads I, 2, aVL, aVF. He was given aspirin in the emergency department will admit for further evaluation of chest pain, hypertensive urgency. - Past Medical/Surgical History Diabetic: No -: HTN -: NIDDM -: INSOMNIA -: 4 wisdom teeth removed -: stitches to right eye Psychosocial/ Personal History: . Lives at home - Family History Father -: Hypertension, Lung disease, Diabetes Mother -: Hypertension - Social History Smoking Status: Never smoker Alcohol use: Yes CD- Drugs: No Caffeine use: Yes Place of Residence: Home <Matt Jones - Last Filed: 03/07/22 22:04> Date of Service: 03/08/22 <Cezar Zaldivar - Last Filed: 03/08/22 18:03> Allergies No Known Allergies Allergy (Verified 04/13/20 21:16) Home Medications: Losartan Potassium [Cozaar*] 50 mg PO DAILY #30 tablet 09/19/19 Metformin HCl 1,000 mg PO BID #60 tablet 09/19/19 Aspirin [Aspirin EC] 81 mg PO DAILY #30 tablet. 04/14/20 Atorvastatin Calcium [Lipitor] 40 mg PO BEDTIME #30 tab 04/14/20 Melatonin 10 mg PO BEDTIME #30 tablet 04/14/20 Trazodone [Desyrel*] 50 mg PO DAILY #15 tablet 04/14/20 Amlodipine [Norvasc*] 10 mg PO DAILY #30 tab 03/08/22 Metoprolol Tartrate 25 mg PO BID #60 tablet 03/08/22 Review of Systems 10-point ROS is otherwise unremarkable Cardiovascular: Chest Pain Neurological: Other (Headache) <Matt Jones - Last Filed: 03/07/22 22:04> Physical Examination - Physical Exam General: Alert, In no apparent distress, Oriented x3 HEENT: Atraumatic, PERRLA, Mucous membr. moist/pink, EOMI, Sclerae nonicteric Neck: Supple, 2+ carotid pulse no bruit, No LAD, Without JVD or thyroid abnormality Respiratory: Clear to auscultation bilaterally, Normal air movement Cardiovascular: Regular rate/rhythm, Normal S1 S2 Capillary refill: <2 Seconds Gastrointestinal: Normal bowel sounds, No tenderness Musculoskeletal: No tenderness Integumentary: No rashes Neurological: Normal speech, Normal strength at 5/5 x4 extr, Normal tone, Normal affect - Studies Laboratory Data (last 24 hrs) 03/07/22 19:15: PT 11.1, INR 1.01 03/07/22 19:15: WBC 11.50 H, Hgb 16.4, Hct 49.1 H, Plt Count 266 03/07/22 19:15: Sodium 138, Potassium 4.3, BUN 12, Creatinine 1.09, Glucose 133 H, Magnesium 2.6 H, Total Bilirubin 0.9, AST 15, ALT 13 L, Alkaline Phosphatase 108 <Matt Jones - Last Filed: 03/07/22 22:04> - Studies Laboratory Data (last 24 hrs) 03/07/22 19:15: PT 11.1, INR 1.01 03/07/22 19:15: WBC 11.50 H, Hgb 16.4, Hct 49.1 H, Plt Count 266 03/07/22 19:15: Sodium 138, Potassium 4.3, BUN 12, Creatinine 1.09, Glucose 133 H, Magnesium 2.6 H, Total Bilirubin 0.9, AST 15, ALT 13 L, Alkaline Phosphatase 108 <Cezar Zaldivar - Last Filed: 03/08/22 18:03> Assessment and Plan - Plan Assessment: Chest pain rule out ACS Hypertensive urgency Diabetes mellitus type [id number] Plan: Chest pain rule out ACS: Trend troponins, continue ASA, statin, beta herminia. Cardiology consult in place. Last stress test in 2020, reported to be normal. Has never had a heart catheterization. Pain is described as burning, similar to previous episodes of GERD, will treat with PPI. Hypertensive urgency: Patient without all medications for 1.5 months, was previously on metoprolol, amlodipine although is unclear about dosing. Continue with metoprolol tartrate 25 mg p.o. twice daily and amlodipine 5 mg daily. Diabetes mellitus type [id number]: ACH S Accu-Chek, sliding scale insulin, A1c in the morning. DVT PPX: Lovenox Code status: Full Discharge Plan: Home Plan to discharge in: 24 Hours - Advance Directives Does patient have a Living Will: No Does patient have a Durable POA for Healthcare: No - Code Status/Comfort Care Code Status Assessed: Yes (Full code) Critical Care: No Time Spent Managing Pts Care (In Minutes): 55 <Matt Jones - Last Filed: 03/07/22 22:04> Physician Review: Patient Assessed, Agree with Above Assessment and Plan <Cezar Zaldivar - Last Filed: 03/08/22 18:03>
[2022-03-07] MEDS ORDERED: FAMOTIDINE 20 MG/2 ML VIAL IV ONE (21:45)
[2022-03-07 22:09] LABS: SARS-CoV-2 Antigen Rapid Res Negative (Negative)
[2022-03-07] MEDS ORDERED: SODIUM CHLORIDE 0.9% 10ML INJ IV PRN (22:57)
[2022-03-07] MEDS ORDERED: ONDANSETRON 4 MG/2 ML VIAL IV PRN (22:57)
[2022-03-07] MEDS ORDERED: ACETAMINOPHEN 325 MG TABLET ONE (23:26)
[2022-03-07 23:28] VITALS: O2SAT 100; BMI 37.5
[2022-03-08 02:58] LABS: Absolute Lymphocytes (CBC) 3.5 K/uL (0.7-4.9); Hematocrit 47.9 % (39.6-49.0); Lymphocytes % 33.1 % (15.3-44.8); MCV 85.1 fL (80-100); MPV 8.1 fL (7.6-11.3); RBC Red Blood Cell Count 5.64 M/uL (4.33-5.43)
[2022-03-08 03:44] LABS: Potassium 3.8 mmol/L (3.5-5.1); Thyroid Stimulating Hormone 1.29 uIU/mL (0.358-3.740); Troponin High Sensitivity 9.4 pg/mL (<58.9)
[2022-03-08] MEDS: METOPROLOL TAR 25 MG TAB PO SCH ×2 (06:00→16:30)
[2022-03-08] MEDS ORDERED: METOPROLOL TAR 25 MG TAB ONE (06:37)
[2022-03-08] MEDS: INSULIN -REGULAR HUMAN 50 UNIT/0.5 ML ML SQ SCH ×3 (07:23→16:04)
[2022-03-08] MEDS ORDERED: PANTOPRAZOLE 40 MG INJ IVP SCH ×2 (07:30→09:00)
[2022-03-08] MEDS ORDERED: INFLUENZA VACCINE (for 6+ mo) 0.5 ML DOSE IMVAC ONE (08:00)
[2022-03-08] MEDS ORDERED: AMLODIPINE 5 MG TAB PO SCH (09:00)
[2022-03-08] MEDS ORDERED: ENOXAPARIN 40 MG/0.4 ML SQ SCH (09:00)
[2022-03-08] MEDS ORDERED: ASPIRIN EC 81 MG TAB PO SCH (09:00)
--- NOTE | 2022-03-08 16:05 | P.DS ---
Admission Date: 03/07/22 Discharge Date: 03/08/22 Primary Care Provider: Dr. Hannah Disposition: ROUTINE DISCHARGE Discharge Condition: GOOD Reason for Admission: Chest pain, HTN urgency Consultations: 1. Cardiology Hospital Course: DIAGNOSES: # Hypertensive Urgency with Chest Pain # Type II Diabetes Mellitus # Obesity - BMI 37.6 kg/m2 HOSPITAL COURSE: Mr. Fredrick Reyez is a pleasant 46 year old male with a past medical history significant for hypertension, type 2 diabetes mellitus, and obesity who was admitted to the [facility] [place] on 03/07/2022 for chest pain. He was admitted to the Medicine service. His EKG was without STEMI criteria. His troponin trend was 10.8 -> 9.2 -> 9.4. His d-dimer was <215. His chest x-ray revealed, "no acute intrathoracic process suspected." CT head revealed, "no acute intracranial abnormality." Cardiology was consulted and he was evaluated by Dr. Morfin. He has cleared him for discharge with outpatient stress test. Currently, he is chest pain-free and would like to be discharged home. On 03/08/2022, he was seen on rounds and deemed medically stable for discharge. He was discharged with instructions to schedule follow-up appointments with his PCP (Dr. Hannah) and with Cardiology (Dr. Morfin). He was provided prescriptions for amlodipine, metoprolol, and losartan. He and his family members were given the opportunity to ask questions and reported no further questions. Furthermore, all questions were answered to the best of my ability. A copy of this discharge summary will be sent to the above providers to facilitate continuity of care. Today, I personally spent 20 minutes on his case, of which greater than 50% of the time was spent in patient education, counseling, and coordination of care as described above. Vital Signs/Physical Exam: Temp Pulse Resp BP Pulse Ox 97.5 F 65 16 165/99 H 95 03/08/22 11:50 03/08/22 11:50 03/08/22 11:50 03/08/22 11:50 03/08/22 11:50 General: Alert, In no apparent distress, Oriented x3 HEENT: Atraumatic, EOMI, Sclerae nonicteric Neck: JVD not distended Respiratory: Clear to auscultation bilaterally, Normal air movement Cardiovascular: No edema, Regular rate/rhythm, Normal S1 S2, No gallops, No rubs, No murmurs Gastrointestinal: Normal bowel sounds, Soft and benign, Non-distended, No tenderness, No rebound, No guarding Musculoskeletal: No clubbing Integumentary: No rashes Neurological: Normal speech, Normal affect Laboratory Data at Discharge: WBC 10.50 K/uL (4.3-10.9) 03/08/22 02:16 Hgb 16.6 g/dL (13.6-17.9) 03/08/22 02:16 Hct 47.9 % (39.6-49.0) 03/08/22 02:16 Plt Count 274 K/uL (152-406) 03/08/22 02:16 PT 11.1 SECONDS (9.5-12.5) 03/07/22 19:15 INR 1.01 03/07/22 19:15 Sodium 139 mmol/L (136-145) 03/08/22 02:16 Potassium 3.8 mmol/L (3.5-5.1) 03/08/22 02:16 BUN 13 mg/dL (7-18) 03/08/22 02:16 Creatinine 1.00 mg/dL (0.70-1.30) 03/08/22 02:16 Glucose 130 mg/dL (74-106) H 03/08/22 02:16 Magnesium 2.6 mg/dL (1.6-2.4) H 03/07/22 19:15 Total Bilirubin 0.9 mg/dL (0.2-1.0) 03/07/22 19:15 AST 15 U/L (15-37) 03/07/22 19:15 ALT 13 U/L (16-61) L 03/07/22 19:15 Alkaline Phosphatase 108 U/L (45-117) 03/07/22 19:15 Triglycerides 155 mg/dL (<150) H 03/08/22 02:16 Cholesterol 172 mg/dL (<200) 03/08/22 02:16 HDL Cholesterol 40 mg/dL (40-60) 03/08/22 02:16 Cholesterol/HDL Ratio 4.30 03/08/22 02:16 Home Medications: Metformin HCl 1,000 mg PO BID #60 tablet 09/19/19 Aspirin [Aspirin EC] 81 mg PO DAILY #30 tablet. 04/14/20 Atorvastatin Calcium [Lipitor] 40 mg PO BEDTIME #30 tab 04/14/20 Melatonin 10 mg PO BEDTIME #30 tablet 04/14/20 Trazodone [Desyrel*] 50 mg PO DAILY #15 tablet 04/14/20 Amlodipine [Norvasc*] 10 mg PO DAILY #30 tab 03/08/22 Losartan Potassium [Cozaar*] 50 mg PO DAILY #30 tablet 03/08/22 Metoprolol Tartrate 25 mg PO BID #60 tablet 03/08/22 New Medications: Losartan Potassium [Cozaar*] 50 mg PO DAILY #30 tablet Metoprolol Tartrate 25 mg PO BID #60 tablet Amlodipine [Norvasc*] 10 mg PO DAILY #30 tab Physician Discharge Instructions: 1. Please call and schedule a follow-up appointment with your PCP (Dr. Hannah) in 3-5 days 2. Please call and schedule a follow-up appointment with Cardiology (Dr. Morfin) in 5-7 days - He will schedule you for a cardiac stress test in his clinic Diet: ADA Activity: Ad kelby Followup: Fritz Hannah DO [ACTIVE - CAN ADMIT] - Akash Morfin MD [ACTIVE - CAN ADMIT] - Time spent managing pt's care (in minutes): 20
[2022-03-08 16:50] VITALS: TEMP 98.2
[2022-03-08 17:36] VITALS: BP 168/91
--- NOTE | 2022-03-08 20:14 | CON ---
Date of Consultation: 03/08/2022 Reason For Consultation: High blood pressure and chest pain. History Of Present Illness: This 46-year-old male with history of hypertension and diabetes ran out of his blood pressure medications and presented to the emergency room with headache. Blood pressure was above 200 systolic. He was started on his antihypertensive medications, felt better. During this time, he has been having chest pain on and off, not related to exertion and it has completely resolv ed. Past Medical History: As outlined above. Medications: Refer to reconciliation sheet for detailed list. Allergies: NO KNOWN DRUG ALLERGIES. Family History: No premature coronary artery disease or cancer. Social History: He does not smoke or drink. Does not use any drugs. Review of Systems: All systems reviewed and they were negative except for mentioned in HPI. Physical Examination: Vital Signs: Reviewed. Head And Neck: Pupils are equal and reactive to light. Intact eye movements. No JVD. No cervical lymphadenopathy. Neck is supple. Thyroid is not enlarged. Lungs: Clear to auscultation bilaterally. No rhonchi, wheezing, or crackles. No accessory muscle u se. Heart: Regular rate and rhythm. No extra sounds. Abdomen: Soft, nontender. Bowel sounds positive. No organomegaly. No masses or hernia. No rigidi ty or rebound. Extremities: No edema, clubbing, or cyanosis. Intact pulses. Skin: No rash. Neurologic: Alert, awake, and oriented x3. No acute focal deficits appreciated. Investigations: BUN 13, creatinine 1.0. Three sets of troponins are negative. Assessment/plan: 1.Chest pain with negative troponin. This is likely pain due to the severe systolic blood pressure and it resolved with treating his blood pressure now. I recommend outpatient stress test. 2.Hypertensive crisis. Blood pressure is better. We will sign off and I will follow up with the patient as an outpatient for stress test and an echo. SR/MODL Voice ID: [id number] Report ID: [id number]
[2022-03-08] MEDS ORDERED: ATORVASTATIN 40 MG TAB PO SCH (21:00)
== END 2022-03-08 17:15 | disposition home or self-care (01) ==
LOC: ER 18:24 → ERHOLD 22:32 → 4TH 03-08 08:05
PROVIDERS: ADMIT Internal Medicine; ATTEND Internal Medicine
DX: I16.0 Hypertensive urgency (principal); R07.9 Chest pain, unspecified; E11.9 Type 2 diabetes mellitus without complications; Z91.14 Patient's other noncompliance with medication regimen; E66.9 Obesity, unspecified; Z68.37 Body mass index [BMI] 37.0-37.9, adult; Z20.822 Contact with and (suspected) exposure to COVID-19
CPT/HCPCS: 36415; 70450; 71045; 80048; 80061; 80076; 82947; 83036; 83735; 83880; 84439; 84443; 84484; 85025; 85379; 85610; 87811; 93005; C9113; G0378; J1650

== ENCOUNTER 2024-03-21 23:15 | Inpatient (IN) | payer SELFPAY ==
[2024-03-22] MEDS ORDERED: ASPIRIN 81 MG CHEWABLE TABLET ONE (00:28)
[2024-03-22] MEDS ORDERED: NA CHLORIDE 0.9% 100 ML ONE (00:29)
[2024-03-22] MEDS ORDERED: dilTIAZem HCL 25 MG/5 ML VIAL IV ONE (00:29)
[2024-03-22] MEDS: dilTIAZem HCL 25 MG/5 ML VIAL IV ONE (00:36)
[2024-03-22] MEDS ORDERED: NA CHLORIDE 0.9% 1,000 ML ONE ×2 (00:36→08:18)
[2024-03-22] MEDS ORDERED: ENOXAPARIN 100 MG/ML SYR SQ ONE ×2 (00:49→10:52)
[2024-03-22] MEDS ORDERED: ENOXAPARIN 30 MG/0.3 ML SQ ONE (00:50)
[2024-03-22 01:08] LABS: Absolute Basophils 0.1 K/uL (0-0.5); Absolute Eosinophils 0.2 K/uL (0-0.5); Absolute Lymphocytes (CBC) 3.2 K/uL (0.7-4.9); Absolute Monocytes 0.8 K/uL (0.1-1.3); Absolute Neutrophil 5.2 K/uL (1.8-8.0); Basophils % 1.2 % (0-1.3); Eosinophils % 1.8 % (0-4.4); Hematocrit 46.9 % (39.6-49.0); Hemoglobin 17.1 g/dL (13.6-17.9); Lymphocytes % 33.8 % (15.3-44.8); MCH 30.6 pg (27.0-35.0); MCHC 36.4 g/dL (32.0-36.0); MCV 84.2 fL (80-100); MPV 8.7 fL (7.6-11.3); Monocytes % 8.5 % (3.3-12.3); Neutrophils % 54.7 % (41.7-73.7); Nucleated Red Blood Cells % 0.1 % (0-0); Platelets 249 thou/uL (152-406); RBC Red Blood Cell Count 5.57 M/uL (4.33-5.43); Red Cell Distribution Width 13.4 % (12.1-15.2)
[2024-03-22 01:22] LABS: PT Prothrombin Time 11.2 SECONDS (9.4-12.5); Protime INR 1.07
--- NOTE | 2024-03-22 01:38 | RAD REPORT ---
EXAM DESCRIPTION: XR CHEST 1 VIEW 03/22/2024 1:05 AM VICE INVESTIGATOR CLINICAL HISTORY: 48 years, Male, Chest pain. COMPARISON: XR Chest 03/07/2022. FINDINGS: 1 view of the chest (AP portable projection) was obtained. Prior films were compared. There is norm al lung volume. Mediastinum: The cardiomediastinal silhouette appears normal in size and shape. Lungs: No areas of consolidations or masses are identified. Heart: The heart is normal in size. Thoracic aorta: The thoracic aorta demonstrate to be normal. Pulmonary vasculature: The pulmonary vasculature is normal in distribution. Pleura: The costophrenic angles demonstrate to be sharp. Mild elevation right hemidiaphragm Osseous structures: The bony structures demonstrate to be within normal limits. Other: External EKG leads within the [id number] limits diagnosis. IMPRESSION: No acute cardiopulmonary disease is seen Electronically signed by: Uri Solorzano MD 03/22/2024 01:12 AM VICE INVESTIGATOR Due to temporary technical issues with the PACS/Sqrrl reporting system, reports are being cynthia d by the in-house radiologist without review as a courtesy to ensure prompt reporting the interpreting radiologist is fully responsible for the content of the report. Transcribed Date/Time: 03/22/2024 1:38 AM
[2024-03-22 01:44] LABS: Anion Gap 12.6 mEq/L (5.0-15.0); Potassium 3.6 mEq/L (3.5-5.1)
[2024-03-22 01:53] LABS: Albumin 3.6 g/dL (3.4-5.0); Alkaline Phosphatase 150 U/L (45-117); Bilirubin Total 0.7 mg/dL (0.2-1.0); Globulin 3.7 g/dL (2.3-3.5); NT PRO-BNP 13 pg/mL (<125); Protein, Total 7.3 g/dL (6.4-8.2); Troponin High Sensitivity 11.2 pg/mL (<58.9)
[2024-03-22 01:57] LABS: ALT/SGPT 28 U/L (16-61); AST/SGOT 25 U/L (15-37); Bilirubin Direct < 0.2 mg/dL (0-0.2); Bilirubin Indirect, Calculated 0.5 mg/dL (0.2-0.8)
--- NOTE | 2024-03-22 02:40 | EDPHYS ---
Physician Documentation [facility] Name: Fredrick Reyez Jr Age: 48 yrs Sex: Male : 1975 Arrival Date: 03/21/2024 Time: 23:15 Bed 5 Private MD: ED Physician Carlos Taylor HPI: 03/21 23:40 This 48 yrs old Male presents to ER via Unassigned with complaints of High sp4 Blood Pressure, Pt states he feels a throbbing in his throat. 03/22 05:31 Patient with past medical history of hypertension, type 2 diabetes, obesity, presents sp4 with palpitations and chest discomfort. Onset of palpitations this afternoon roughly about 3 PM. Patient's medications include metformin twice daily, aspirin daily, atorvastatin daily, melatonin daily, trazodone daily, amlodipine daily, losartan 50 mg p.o. daily, metoprolol 25 p.o. twice daily. Historical: - Allergies: 03/21 23:46 NKDA; al5 - Home Meds: 23:46 metformin 500 mg oral Tablet, Extended Release 24 hr 2 times per day [Active]; al5 amlodipine-benazepril 10-40 mg oral capsule 1 cap daily [Active]; hydrochlorothiazide 25 mg Oral tablet daily [Active]; carvedilol 12.5 mg oral tablet 2 times per day [Active]; - PMHx: 23:46 diabetes mellitus; Hypertension; al5 - Immunization history:: Adult Immunizations up to date. - Infectious Disease History:: Denies. - Social history:: Smoking status: Patient denies any tobacco usage or history of. - Family history:: not pertinent. ROS: 03/22 05:31 Constitutional: Negative for fever, chills, and weight loss, positive palpitations sp4 positive chest discomfort All other systems are negative, Exam: 05:31 Constitutional: This is a well developed, well nourished patient who is awake, alert, sp4 and in no acute distress. Head/Face: Normocephalic, atraumatic. Eyes: Pupils equal round and reactive to light, extra-ocular motions intact. Lids and lashes normal. Conjunctiva and sclera are not injected. Cornea within normal limits. Periorbital areas with no swelling, redness, or edema. ENT: Nares patent. No nasal discharge, no septal abnormalities noted. Tympanic membranes are normal and external auditory canals are clear. Oropharynx with no redness, swelling, or masses, exudates, or evidence of obstruction, uvula midline. Mucous membranes moist. Neck: Trachea midline, no thyromegaly or masses palpated, and no cervical lymphadenopathy. Supple, full range of motion without nuchal rigidity, or vertebral point tenderness. Chest/axilla: Normal chest wall appearance and motion. Nontender with no deformity. No lesions are appreciated. Cardiovascular: Regular rate and rhythm with a normal S1 and S2. No gallops, murmurs, or rubs. Normal PMI, no JVD. No pulse deficits. Respiratory: Lungs have equal breath sounds bilaterally, clear to auscultation and percussion. No rales, rhonchi or wheezes noted. No increased work of breathing, no retractions or nasal flaring. Abdomen/GI: Soft, with normal bowel sounds. No distension or tympany. No guarding or rebound. No evidence of tenderness throughout. Back: No spinal tenderness. No costovertebral tenderness. Skin: Warm, dry with normal turgor. Normal color with no rashes, no lesions, and no evidence of cellulitis. MS/ Extremity: Pulses equal, no cyanosis. Neurovascular intact. Full, normal range of motion. Neuro: Awake and alert, GCS 15, oriented to person, place, time, and situation. Cranial nerves II-XII grossly intact. Motor strength 5/5 in all extremities. Sensory grossly intact. Psych: Awake, alert, with orientation to person, place and time. Behavior, mood, and affect are within normal limits 05:31 ECG was reviewed by the Attending Physician. EKG 2344 atrial fibrillation with RVR rate 130 Vital Signs: 03/21 23:50 BP 147 / 119; Pulse 105; Resp 18; Temp 98.3; Pulse Ox 99% on R/A; Weight 115.21 kg; al5 Height 5 ft. 7 in. ; Pain 0/10; 23:56 BP 142 / 97; al5 03/22 00:08 BP 146 / 83; Pulse 102; Resp 19; Pulse Ox 94% on R/A; al5 00:30 BP 171 / 108; Pulse 99; Resp 23; Pulse Ox 98% on R/A; al5 00:45 BP 171 / 98; Pulse 93; Resp 15; Pulse Ox 97% on R/A; al5 01:00 BP 143 / 73; Pulse 68; Resp 16; Pulse Ox 97% on R/A; al5 01:30 BP 146 / 71; Pulse 83; Resp 19; Pulse Ox 97% on R/A; al5 02:00 BP 156 / 91; Pulse 85; Resp 17; Pulse Ox 98% on R/A; al5 02:30 BP 155 / 85; Pulse 72; Resp 21; Pulse Ox 95% on R/A; al5 03/21 23:50 Body Mass Index 39.78 (115.21 kg, 170.18 cm) al5 03/21 23:50 Pain Scale: Adult al5 [place] Coma Score: 05:31 Eye Response: spontaneous(4). Motor Response: obeys commands(6). Verbal Response: sp4 oriented(5). Total: 15. MDM: 03/21 23:41 Medical Screening Exam initiated sp4 03/22 05:33 Differential diagnosis: hypertensive crisis, Malignant HTN, Arrhythmia. Data reviewed: sp4 vital signs, nurses notes, lab test result(s), EKG, radiologic studies, plain films. Consideration of Admission/Observation Escalation of care including admission/observation considered. 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 COMPARISON: XR Chest 03/07/2022. FINDINGS: 1 view of the chest (AP portable projection) was obtained. Prior films were compared. There is normal lung volume. Mediastinum: The cardiomediastinal silhouette appears normal in size and shape. Lungs: No areas of consolidations or masses are identified. Heart: The heart is normal in size. Thoracic aorta: The thoracic aorta demonstrate to be normal. Pulmonary vasculature: The pulmonary vasculature is normal in distribution. Pleura: The costophrenic angles demonstrate to be sharp. Mild elevation right hemidiaphragm Osseous structures: The bony structures demonstrate to be within normal limits. Other: External EKG leads within the [id number] limits diagnosis. IMPRESSION: No acute cardiopulmonary disease is seen. ED course: Patient admitted in stable condition for management of atrial fibrillation.. 07:46 ED course: I spoke with regarding this admission, states that he has not seen ec2 the patient in several years and recommended admission to the hospitalist. Discussed with hospitalist, who will admit primarily.. 07:51 ED course: Labs revealing for reassuring electrolytes, renal dysfunction noted. CBC is ec2 nonactionable. Strep test negative. Troponin within normal ranges, chest x-ray shows no acute intrathoracic process. Patient with heart rates in the 100-110s. 03/21 23:41 Order name: Basic Metabolic Panel; Complete Time: 05:21 sp4 03/21 23:41 Order name: CBC with Diff; Complete Time: 05:21 sp4 03/21 23:41 Order name: Strep sp4 03/21 23:54 Order name: LFT's; Complete Time: 05:21 sp4 03/21 23:54 Order name: NT PRO-BNP; Complete Time: 05:21 sp4 03/21 23:54 Order name: PT-INR; Complete Time: 05:21 sp4 03/21 23:54 Order name: Troponin HS; Complete Time: 05:21 sp4 03/22 01:28 Order name: Throat Culture EDRI 03/22 07:58 Order name: Glucose, Ancillary Testing EDRI 03/22 09:02 Order name: Troponin High Sensitivity EDRI 03/22 11:32 Order name: Glucose, Ancillary Testing EDRI 03/21 23:54 Order name: XRAY Chest (1 view); Complete Time: 07:48 sp4 03/21 23:54 Order name: EKG; Complete Time: 23:55 sp4 03/22 05:25 Order name: CONS Physician Consult EDRI 03/21 23:41 Order name: IV Saline Lock; Complete Time: 00:45 sp4 03/21 23:41 Order name: Labs collected and sent; Complete Time: 00:45 sp4 03/21 23:54 Order name: Cardiac monitoring; Complete Time: 00:45 sp4 03/21 23:54 Order name: EKG - Nurse/Tech; Complete Time: 23:55 sp4 03/21 23:54 Order name: O2 Per Protocol; Complete Time: 00:45 sp4 03/21 23:54 Order name: O2 Sat Monitoring; Complete Time: 00:45 sp4 EC/14 23:44 Rate is 130 beats/min. Rhythm is irregularly irregular, A fib with Rapid ventricular sp4 response. QRS [place] is Normal. QRS interval is normal. QT interval is normal. No Q waves. No ST changes noted. Clinical impression: Atrial Fibrillation. Interpreted by me. Reviewed by me. Administered Medications: 03/22 00:45 Drug: Aspirin PO Chewable Tablet 324 mg PO once; 81 mg tablets x 4 Route: PO; al5 07:11 Follow up: Response: No adverse reaction ko1 00:45 Drug: NS 0.9% IV 1000 ml IV at 1 bolus Per protocol; to be given as a bolus over 60 al5 minutes Route: IV; Rate: 1 bolus; Site: right antecubital; 02:55 Follow up: Response: No adverse reaction; IV Status: Completed infusion; IV Intake: al5 1000ml 01:00 Drug: Enoxaparin Sub-Q 1 mg/kg Sub-Q once Route: Sub-Q; Site: left lower abdomen; al5 02:55 Follow up: Response: No adverse reaction al5 01:01 Drug: Diltiazem IVP 20 mg IVP once; Over 2 minutes Route: IVP; Site: right antecubital; al5 02:55 Follow up: Response: No adverse reaction; Cardiac rhythm is unchanged; Other; heart al5 rate decreased 01:01 Drug: Diltiazem IV 5 mg/hr IV at calculated rate See Administration Instructions; al5 (standard dilution 125 mg diltiazem mixed in 125 mL NS; final concentration 1mg/mL). Recommended max rate 15 mg/hr; Titrate 5 mg/hr as often as every 15 minutes to achieve goal (see titration policy); Goal parameter HR less than 100 bpm Route: IV; Rate: calculated rate; Site: right antecubital; 02:56 Follow up: Response: No adverse reaction; Cardiac rhythm is unchanged; IV Status: al5 Infusion continued upon admission 06:20 Follow up: Response: No adverse reaction; Rate change 10 mg/hr al5 Disposition Summary: 03/22/24 02:39 Hospitalization Ordered Notes: Hospitalization Status: Inpatient Admission sp4 Condition: Stable sp4 Problem: new sp4 Symptoms: have improved sp4 Bed/Room Type: Standard sp4 Provider: Chon Elliott(03/22/24 07:48) ec2 Location: Intensive Care Unit(03/22/24 15:05) sp Room Assignment: 6-(03/22/24 15:05) sp Diagnosis - Atrial fibrillation with RVR new onset sp4 Forms: - Medication Reconciliation Form sp4 - SBAR form sp4 - Leadership Thank You Letter sp4 Critical care time excluding procedures: 05:37 Critical care time: Bedside Care: 36 minutes, Consultation: 12 minutes, Family sp4 Intervention: 12 minutes. Total time: 60 minutes Signatures: Dispatcher [employer] EDMS WilliamsArcenioLiz Valerio, RN RN vc1 Dimitris Mcknight MD MD sp4 Carlos Taylor MD MD ec2 Yusra Seo, JERRELL RN al5 Claudia Pradhan RN ko1 Corrections: (The following items were deleted from the chart) 03/21 23:50 23:46 Home Meds: Metoprolol Tartrate Oral; al5 al5 23:50 23:46 Home Meds: amlodipine oral; al5 al5 23:55 23:55 HEPATIC FUNCTION+C.LAB.BRZ ordered. EDMS EDMS 23:55 23:55 PROBNP+C.LAB.BRZ ordered. EDMS EDMS 23:55 23:55 PROTIME (+INR)+COAG.LAB.BRZ ordered. EDMS EDMS 23:55 23:55 Troponin High Sensitivity+C.LAB.BRZ ordered. EDMS EDMS 03/22 02:40 02:39 Ralf Ulrich sp4 sp4 03:20 02:39 Telemetry/MedSurg (Inpatient) sp4 vc1 03:20 02:39 sp4 vc1 07:48 02:40 [place] sp4 ec2 15:05 03:20 BR ER HOLD vc1 sp 15:05 03:20 ERHOLD- vc1 sp
--- NOTE | 2024-03-22 02:40 | ER ---
Nurse's Notes [facility] Name: Fredrick Reyez Jr Age: 48 yrs Sex: Male : 1975 Arrival Date: 03/21/2024 Time: 23:15 Bed 5 Private MD: Diagnosis: Atrial fibrillation with RVR new onset Presentation: 03/21 23:50 Chief complaint: Patient states: patient felt a palpation in his throat and chest, took al5 his BP and it was elevated. states he felt like it was similar to an anxiety attack physically, but not emotionally. Coronavirus screen: At this time, the client does not indicate any symptoms associated with coronavirus-19. Ebola Screen: No symptoms or risks identified at this time. Initial Sepsis Screen: Does the patient meet any 2 criteria? No. Patient's initial sepsis screen is negative. Does the patient have a suspected source of infection? No. Patient's initial sepsis screen is negative. Risk Assessment: Do you want to hurt yourself or someone else? Patient reports no desire to harm self or others. Onset of symptoms was March 21, 2024. 23:50 Method Of Arrival: Ambulatory al5 23:50 Acuity: MICHELLE 2 al5 Triage Assessment: 23:52 General: Appears in no apparent distress. comfortable, Behavior is calm, cooperative. al5 Pain: Denies pain. EENT: No signs and/or symptoms were reported regarding the EENT system. Neuro: Level of Consciousness is awake, alert, obeys commands, Oriented to person, place, time, situation. Cardiovascular: Reports palpitations, Capillary refill < 3 seconds Patient's skin is warm and dry. Rhythm is atrial fibrillation. Respiratory: Airway is patent Respiratory effort is even, unlabored, Respiratory pattern is regular, symmetrical. GI: No signs and/or symptoms were reported involving the gastrointestinal system. : No signs and/or symptoms were reported regarding the genitourinary system. Derm: Skin is intact, is healthy with good turgor, Skin is pink, warm \T\ dry. normal. Musculoskeletal: No signs and/or symptoms reported regarding the musculoskeletal system. Historical: - Allergies: 23:46 NKDA; al5 - Home Meds: 23:46 metformin 500 mg oral Tablet, Extended Release 24 hr 2 times per day [Active]; al5 amlodipine-benazepril 10-40 mg oral capsule 1 cap daily [Active]; hydrochlorothiazide 25 mg Oral tablet daily [Active]; carvedilol 12.5 mg oral tablet 2 times per day [Active]; - PMHx: 23:46 diabetes mellitus; Hypertension; al5 - Immunization history:: Adult Immunizations up to date. - Infectious Disease History:: Denies. - Social history:: Smoking status: Patient denies any tobacco usage or history of. - Family history:: not pertinent. Screenin:53 [facility] ED Fall Risk Assessment (Adult) History of falling in the last 3 months, al5 including since admission No falls in past 3 months (0 pts) Confusion or Disorientation No (0 pts) Intoxicated or Sedated No (0 pts) Impaired Gait No (0 pts) Mobility Assist Device Used No (0 pt) Altered Elimination No (0 pt) Score/Fall Risk Level 0 - 2 = Low Risk Oriented to surroundings, Maintained a safe environment, Hourly rounding (assess needs \T\ fall precautionary measures) done. Abuse screen: Denies threats or abuse. Denies injuries from another. Nutritional screening: No deficits noted. Tuberculosis screening: No symptoms or risk factors identified. Assessment: 23:53 Reassessment: see triage assessment. al5 03/22 00:46 Reassessment: Patient appears in no apparent distress at this time. No changes from al5 previously documented assessment. Patient and/or family updated on plan of care and expected duration. Pain level reassessed. Patient is alert, oriented x 3, equal unlabored respirations, skin warm/dry/pink. 01:43 Reassessment: Patient appears in no apparent distress at this time. No changes from al5 previously documented assessment. Patient and/or family updated on plan of care and expected duration. Pain level reassessed. Patient is alert, oriented x 3, equal unlabored respirations, skin warm/dry/pink. 02:55 Reassessment: Patient appears in no apparent distress at this time. No changes from al5 previously documented assessment. Patient and/or family updated on plan of care and expected duration. Pain level reassessed. Patient is alert, oriented x 3, equal unlabored respirations, skin warm/dry/pink. Patient states feeling better. Vital Signs: 03/21 23:50 BP 147 / 119; Pulse 105; Resp 18; Temp 98.3; Pulse Ox 99% on R/A; Weight 115.21 kg; al5 Height 5 ft. 7 in. ; Pain 0/10; 23:56 BP 142 / 97; al5 03/22 00:08 BP 146 / 83; Pulse 102; Resp 19; Pulse Ox 94% on R/A; al5 00:30 BP 171 / 108; Pulse 99; Resp 23; Pulse Ox 98% on R/A; al5 00:45 BP 171 / 98; Pulse 93; Resp 15; Pulse Ox 97% on R/A; al5 01:00 BP 143 / 73; Pulse 68; Resp 16; Pulse Ox 97% on R/A; al5 01:30 BP 146 / 71; Pulse 83; Resp 19; Pulse Ox 97% on R/A; al5 02:00 BP 156 / 91; Pulse 85; Resp 17; Pulse Ox 98% on R/A; al5 02:30 BP 155 / 85; Pulse 72; Resp 21; Pulse Ox 95% on R/A; al5 03/21 23:50 Body Mass Index 39.78 (115.21 kg, 170.18 cm) al5 03/21 23:50 Pain Scale: Adult al5 Sebastian Coma Score: 05:31 Eye Response: spontaneous(4). Motor Response: obeys commands(6). Verbal Response: sp4 oriented(5). Total: 15. ED Course: 03/21 23:17 Patient arrived in ED. jj6 23:40 Dimitris Mcknight MD is Attending Physician. sp4 23:52 Triage completed. al5 23:52 Arm band placed on right wrist. Patient placed in waiting room, in view of staff al5 members, on pulse oximetry. EKG completed in triage. Results shown to MD. 23:53 Patient has correct armband on for positive identification. Provided Education on: plan al5 of care. 23:53 No provider procedures requiring assistance completed. al5 23:55 Yusra Seo RN is Primary Nurse. al5 03/22 00:45 Inserted saline lock: 20 gauge in right antecubital area, using aseptic technique. al5 Blood collected. Flushed with 10 mL NS. 00:49 X-ray completed. Portable x-ray completed in exam room. Patient tolerated procedure mh1 well. 00:51 XRAY Chest (1 view) In Process Unspecified. EDMS 02:39 Ralf Ulrich MD is Hospitalizing Provider. sp4 02:40 Hospitalizing Provider role handed off by Ralf Ulrich MD sp4 02:40 Te Palencia MD is Hospitalizing Provider. sp4 02:55 Patient admitted, IV remains in place. al5 07:46 Attending Physician role handed off by Dimitris Mcknight MD ec2 07:46 Carlos Taylor MD is Attending Physician. ec2 07:48 Chon Elliott MD is Hospitalizing Provider. ec2 Administered Medications: 00:45 Drug: Aspirin PO Chewable Tablet 324 mg PO once; 81 mg tablets x 4 Route: PO; al5 07:11 Follow up: Response: No adverse reaction ko1 00:45 Drug: NS 0.9% IV 1000 ml IV at 1 bolus Per protocol; to be given as a bolus over 60 al5 minutes Route: IV; Rate: 1 bolus; Site: right antecubital; 02:55 Follow up: Response: No adverse reaction; IV Status: Completed infusion; IV Intake: al5 1000ml 01:00 Drug: Enoxaparin Sub-Q 1 mg/kg Sub-Q once Route: Sub-Q; Site: left lower abdomen; al5 02:55 Follow up: Response: No adverse reaction al5 01:01 Drug: Diltiazem IVP 20 mg IVP once; Over 2 minutes Route: IVP; Site: right antecubital; al5 02:55 Follow up: Response: No adverse reaction; Cardiac rhythm is unchanged; Other; heart al5 rate decreased 01:01 Drug: Diltiazem IV 5 mg/hr IV at calculated rate See Administration Instructions; al5 (standard dilution 125 mg diltiazem mixed in 125 mL NS; final concentration 1mg/mL). Recommended max rate 15 mg/hr; Titrate 5 mg/hr as often as every 15 minutes to achieve goal (see titration policy); Goal parameter HR less than 100 bpm Route: IV; Rate: calculated rate; Site: right antecubital; 02:56 Follow up: Response: No adverse reaction; Cardiac rhythm is unchanged; IV Status: al5 Infusion continued upon admission 06:20 Follow up: Response: No adverse reaction; Rate change 10 mg/hr al5 Medication: 03/21 23:53 VIS not applicable for this client. al5 Intake: 03/22 02:55 IV: 1000ml; Total: 1000ml. al5 Outcome: 02:39 Decision to Hospitalize by Provider. sp4 02:55 Admitted to ER Hold. Please see [facility] for further documentation. al5 02:55 Condition: stable 02:55 Instructed on the need for admit, 16:09 Patient left the ED. ko1 Signatures: Dispatcher [employer] EDMS Lorin Teran 1 Keiry Collier6 Claudia Pradhan, JERRELL RN ko1 Dimitris Mcknight MD MD sp4 Carlos Taylor MD MD ec2 Yusra Seo RN RN al5 Corrections: (The following items were deleted from the chart) 03/21 23:50 23:46 Home Meds: Metoprolol Tartrate Oral; al5 al5 23:50 23:46 Home Meds: amlodipine oral; al5 al5
[2024-03-22] MEDS ORDERED: ONDANSETRON 4 MG/2 ML VIAL IV PRN (07:17)
[2024-03-22] MEDS ORDERED: D10W 125 ML IV PRN (07:17)
[2024-03-22] MEDS ORDERED: ALBUTEROL 2.5 MG/3 ML NEB SOL NEB PRN (07:17)
[2024-03-22] MEDS ORDERED: ACETAMINOPHEN 325 MG TABLET PO PRN (07:17)
[2024-03-22] MEDS ORDERED: HYDROCODONE/APAP 10/325 TAB PO PRN (07:17)
[2024-03-22] MEDS: NA CHLORIDE 0.9% 1,000 ML IV SCH (07:17)
[2024-03-22] MEDS ORDERED: GLUCAGON 1 MG/VIAL IM PRN (07:17)
[2024-03-22] MEDS ORDERED: ZOLPIDEM TARTRATE 5 MG TABLET PO PRN (07:17)
[2024-03-22] MEDS: INSULIN REGULAR (HUMAN) 100 UNIT/ML SQ SCH (07:30)
[2024-03-22] MEDS ORDERED: INSULIN REGULAR (HUMAN) 100 UNIT/ML ONE ×2 (08:18→12:26)
[2024-03-22] MEDS: ASPIRIN EC 81 MG TAB PO SCH (09:00)
--- NOTE | 2024-03-22 09:11 | P.HP ---
Certification for Inpatient Patient admitted to: Inpatient With expected LOS: >2 Midnights Practitioner: I am a practitioner with admitting privileges, knowledge of patient current condition, hospital course, and medical plan of care. Services: Services provided to patient in accordance with Admission requirements found in Title 42 Section 412.3 of the Code of Federal Regulations Patient History Allergies No Known Allergies Allergy (Verified 03/22/24 03:12) Home Medications: Metformin HCl 1,000 mg PO BID #60 tablet 09/19/19 Amlodipine Besylate/Benazepril [Lotrel 10-40 mg Capsule] 10 mg PO DAILY 03/22/24 Carvedilol [Coreg] 12.5 mg PO BID 03/22/24 hydroCHLOROthiazide [Hydrochlorothiazide] 25 mg PO DAILY 03/22/24 - Past Medical/Surgical History Has patient received pneumonia vaccine in the past: Yes Diabetic: No -: HTN -: NIDDM -: INSOMNIA -: Atrial Fibrillation -: 4 wisdom teeth removed -: stitches to right eye Psychosocial/ Personal History: . Lives at home - Family History Father Medical History: Hypertension, Lung disease, Diabetes Mother Medical History: Hypertension - Social History Smoking Status: Never smoker Place of Residence: Home Physical Examination - Vital Signs Blood Pressure: 160/91 Pulse: 89 Respirations: 10 Pulse Ox (%): 97 - Studies Laboratory Data (last 24 hrs) 03/22/24 03/22/24 03/22/24 00:42 00:42 00:42 WBC 9.60 Hgb 17.1 Hct 46.9 Plt Count 249 PT 11.2 INR 1.07 Sodium Potassium BUN Creatinine Glucose Total Bilirubin 0.7 AST 25 ALT 28 Alkaline Phosphatase 150 H 03/22/24 00:42 WBC Hgb Hct Plt Count PT INR Sodium 133 L Potassium 3.6 BUN 24 H Creatinine 1.38 H Glucose 391 H Total Bilirubin AST ALT Alkaline Phosphatase Microbiology Data (last 24 hrs): 03/22/24 00:31 Throat Group A Streptococcus Rapid Screen - Final Assessment & Plan - Advance Directives Does patient have a Living Will: No Does patient have a Durable POA for Healthcare: No
[2024-03-22] MEDS ORDERED: ASPIRIN EC 81 MG TAB PO ONE (10:52)
[2024-03-22] MEDS: Enoxaparin 120 MG/0.8 ML SYR SQ ONE (11:00)
--- NOTE | 2024-03-22 13:49 | P.HP ---
Certification for Inpatient Patient admitted to: Inpatient With expected LOS: >2 Midnights Patient will require the following post-hospital care: None Practitioner: I am a practitioner with admitting privileges, knowledge of patient current condition, hospital course, and medical plan of care. Services: Services provided to patient in accordance with Admission requirements found in Title 42 Section 412.3 of the Code of Federal Regulations <Matt Jones - Last Filed: 03/22/24 13:45> Patient History Date of Service: 03/22/24 Reason for admission: New onset A-fib with RVR History of Present Illness: 48-year-old male with history of hypertension, roh-[id number]-ghhyypysl diabetes presents the emergency department chief complaint of palpitations. He reports that around 2300 last night he noticed that his heart was racing and for that reason he came into the emergency department. He has no known history of atrial fibrillation, he was found to be in A-fib with rapid ventricular response. He was started on Cardizem and his rate is currently between 90 and 100. He will be admitted for further evaluation and management of new onset A-fib with RVR - Past Medical/Surgical History Has patient received pneumonia vaccine in the past: Yes Diabetic: No -: HTN -: NIDDM -: INSOMNIA -: Atrial Fibrillation -: 4 wisdom teeth removed -: stitches to right eye Psychosocial/ Personal History: . Lives at home - Family History Father -: Hypertension, Lung disease, Diabetes Mother -: Hypertension - Social History Smoking Status: Never smoker Alcohol use: Yes CD- Drugs: No Caffeine use: Yes Place of Residence: Home <Matt Jones - Last Filed: 03/22/24 13:45> Date of Service: 03/22/24 <Chon Elliott - Last Filed: 03/22/24 22:56> Allergies No Known Allergies Allergy (Verified 03/22/24 03:12) Home Medications: Metformin HCl 1,000 mg PO BID #60 tablet 09/19/19 Amlodipine Besylate/Benazepril [Lotrel 10-40 mg Capsule] 10 mg PO DAILY 03/22/24 Carvedilol [Coreg] 12.5 mg PO BID 03/22/24 hydroCHLOROthiazide [Hydrochlorothiazide] 25 mg PO DAILY 03/22/24 Review of Systems 10-point ROS is otherwise unremarkable Cardiovascular: Palpitations <Matt Jones Cade - Last Filed: 03/22/24 13:45> Physical Examination - Vital Signs Blood Pressure: 176/108 Pulse: 92 Respirations: 20 Pulse Ox (%): 97 - Physical Exam General: Alert, In no apparent distress, Oriented x3 HEENT: Atraumatic, PERRLA, EOMI, Sclerae nonicteric Neck: Supple, 2+ carotid pulse no bruit, No LAD Respiratory: Clear to auscultation bilaterally, Normal air movement Cardiovascular: Irregular heart rate/rhythm Gastrointestinal: Normal bowel sounds, No tenderness Musculoskeletal: No tenderness Integumentary: No rashes Neurological: Normal speech, Normal strength at 5/5 x4 extr, Normal tone, Normal affect - Studies Laboratory Data (last 24 hrs) 03/22/24 03/22/24 03/22/24 00:42 00:42 00:42 WBC 9.60 Hgb 17.1 Hct 46.9 Plt Count 249 PT 11.2 INR 1.07 Sodium Potassium BUN Creatinine Glucose Total Bilirubin 0.7 AST 25 ALT 28 Alkaline Phosphatase 150 H 03/22/24 00:42 WBC Hgb Hct Plt Count PT INR Sodium 133 L Potassium 3.6 BUN 24 H Creatinine 1.38 H Glucose 391 H Total Bilirubin AST ALT Alkaline Phosphatase Microbiology Data (last 24 hrs): 03/22/24 00:31 Throat Group A Streptococcus Rapid Screen - Final <Matt Jones Cade - Last Filed: 03/22/24 13:45> - Studies Laboratory Data (last 24 hrs) 03/22/24 03/22/24 03/22/24 00:42 00:42 00:42 WBC 9.60 Hgb 17.1 Hct 46.9 Plt Count 249 PT 11.2 INR 1.07 Sodium Potassium BUN Creatinine Glucose Total Bilirubin 0.7 AST 25 ALT 28 Alkaline Phosphatase 150 H 03/22/24 00:42 WBC Hgb Hct Plt Count PT INR Sodium 133 L Potassium 3.6 BUN 24 H Creatinine 1.38 H Glucose 391 H Total Bilirubin AST ALT Alkaline Phosphatase Microbiology Data (last 24 hrs): 03/22/24 00:31 Throat Group A Streptococcus Rapid Screen - Final <Chon Elliott - Last Filed: 03/22/24 22:56> Assessment and Plan - Plan Assessment: New onset A-fib with RVR Diabetes mellitus type 2 with hyperglycemia-noncompliant Hypertension Plan: New onset A-fib with RVR [id number] score is 2 Started on therapeutic Lovenox Discussed with cardiology, continue Cardizem Echo ordered Does report frequent snoring, will need outpatient sleep study to rule out MAY Also reports excess caffeine consumption with 4-6 large cups of coffee daily- discussed reducing/cessation of caffeine Will need NOAC at discharge, uninsured will need coupon Diabetes mellitus type 2 with hyperglycemia-noncompliant Was not taking any medications at home as he ran out and had not seen a doctor ACHS Accu-Chek, sliding scale as long A1c in the morning, will need prescription at discharge for diabetes Hypertension Takes Coreg 12.5 twice daily, amlodipine/benazepril 10/40, hydrochlorothiazide 25 mg twice daily at home Continue these medications DVT PPX: Therapeutic Lovenox Code status: Full Discharge Plan: Home Plan to discharge in: 48 Hours - Advance Directives Does patient have a Living Will: No Does patient have a Durable POA for Healthcare: No - Code Status/Comfort Care Code Status Assessed: Yes (Full code) Critical Care: No Time Spent Managing Pts Care (In Minutes): 65 <Matt Jones - Last Filed: 03/22/24 13:45> Date of Service: 03/22/24 Chart has been reviewed. Events of the last 24 hours have been noted. Case discussed with STACEY. I performed a substantial part of the MDM during this alicia ent's care today. I personally made or approved the documented management plan and acknowledge its risk of complications. I agree with the findings and documentation provided in the STACEY's notes Patient states he has been having a fluttering feeling around his heart for the last few months. He is also been drinking a lot of caffeine. He decided to drink a large amount of caffeine over the last couple days. Patient was advised to refrain from caffeine use. He has been on Cardizem. His rate is better controlled. However he still remains in A-fib.Cardiology consulted. Await for further recommendations per cardiology. Patient also with a history of hypertension and diabetes. Continue with strict blood pressure blood sugar control as well. Patient with morbid obesity and may benefit from bariatric follow-up with consideration for GLP-1 agonist treatment. <Chon Elliott - Last Filed: 03/22/24 22:56>
[2024-03-22] MEDS: DILTIAZEM INJ 125 MG/25 ML 125 MG in NA CHLORIDE 0.9% 100 ML IV SCH (16:21)
[2024-03-22] MEDS: carvediloL 12.5 MG TAB PO SCH (17:08)
[2024-03-22] MEDS: ATORVASTATIN 40 MG TAB PO SCH (20:40)
[2024-03-22] MEDS ORDERED: carvediloL 12.5 MG TAB PO SCH (21:00)
[2024-03-23 05:24] VITALS: BMI 38.7
[2024-03-23 05:52] LABS: Hematocrit 48.2 % (39.6-49.0); MCH 29.7 pg (27.0-35.0); MCHC 35.2 g/dL (32.0-36.0); MCV 84.3 fL (80-100); MPV 8.5 fL (7.6-11.3); Platelets 236 thou/uL (152-406); RBC Red Blood Cell Count 5.72 M/uL (4.33-5.43); Red Cell Distribution Width 13.3 % (12.1-15.2)
[2024-03-23 06:06] LABS: Anion Gap 7.6 mEq/L (5.0-15.0)
[2024-03-23 06:10] LABS: Magnesium 2.3 mg/dL (1.6-2.4); Potassium 3.6 mEq/L (3.5-5.1)
--- NOTE | 2024-03-23 07:11 | P.PN ---
Date of Service: 03/23/24 Subjective: Converted back into sinus rhythm today ~8 am has felt fluttering sensations a few times intermittently over the last few months feeling better today breathing okay ROS: 10 point ROS as noted above, otherwise negative Physical Exam: GEN: Alert, oriented, NAD CV: Regualr rate and rhythm, no edema Pulm: Nonlabored respirations on room air, clear bilaterally ABD: soft, nontender, nondistended Integumentary: No rashes Neuro: Normal speech, normal affect Problem List: New onset A-fib with RVR NIDDM2 with hyperglycemia Hypertension New onset A-fib with RVR new onset, no prior diagnosis or a-fib. Does report his heart has been racing/fluttering intermittently for the last few months. Reports drinking substantial amount of caffeine; 4-6 large cups of coffee daily. Advised to minimize caffeine use. Given Theraupetic lovenox 03/22 and started on cardizem drip continue asa 81 mg, statin Monitor on telemetry Cardiology consulted Echo ordered to eval EF / stenosis Converted back into sinus rhythm today ~8 am dc caridzem drip and transition to metoprolol per cardio continue metoprolol 25 mg BID Will need NOAC at discharge, Uninsured-will need coupon NIDDM2 with hyperglycemia reportedly ran out of home meds and had not been able to see a doctor for refills confirm home meds, restart as appropriate accu-cheks, SSI a1c 11.1 Hypertension continue home amlodipine, HCTZ VTE: Theraupetic lovenox Code: Full Dispo: Home likely tomorrow, downgrade later today Pending cardiology recs Time Spent Managing Pts Care (In Minutes): 55
[2024-03-23] MEDS: hydroCHLOROthiazide 25 MG TAB PO SCH (08:22)
[2024-03-23] MEDS: AMLODIPINE 10 MG TAB PO SCH (08:22)
[2024-03-23] MEDS: Enoxaparin 120 MG/0.8 ML SYR SQ SCH (08:22)
[2024-03-23] MEDS: METOPROLOL TAR 25 MG TAB PO SCH (08:23)
[2024-03-23] MEDS ORDERED: AMLODIPINE BESYLATE PO SCH (09:00)
[2024-03-23] MEDS ORDERED: BENAZEPRIL PO SCH (09:00)
--- NOTE | 2024-03-23 13:07 | P.CNS ---
Date of Consult: 03/23/24 Chief Complaint: New onset A-fib with RVR History of Present Illness: Patient with PMH of HTN, DM presented with palpitations, found to be in AF RVR, denies any other cardiac symptoms. Allergies No Known Allergies Allergy (Verified 03/22/24 03:12) Home medications list reviewed: Yes Home Medications: Metformin HCl 1,000 mg PO BID #60 tablet 09/19/19 Amlodipine Besylate/Benazepril [Lotrel 10-40 mg Capsule] 10 mg PO DAILY 03/22/24 Carvedilol [Coreg] 12.5 mg PO BID 03/22/24 hydroCHLOROthiazide [Hydrochlorothiazide] 25 mg PO DAILY 03/22/24 - Past Medical/Surgical History Diabetic: No -: HTN -: NIDDM -: INSOMNIA -: Atrial Fibrillation -: 4 wisdom teeth removed -: stitches to right eye Psychosocial/ Personal History: . Lives at home - Family History Father Medical History: Hypertension, Lung disease, Diabetes Mother Medical History: Hypertension - Social History Smoking Status: Current some day smoker Alcohol use: Yes CD- Drugs: No Caffeine use: Yes Place of Residence: Home Review of Systems 10-point ROS is otherwise unremarkable Physical Examination Temp Pulse Resp BP Pulse Ox 98 F 76 18 148/82 H 95 03/23/24 12:00 03/23/24 12:00 03/23/24 12:00 03/23/24 12:00 03/23/24 12:00 General: Alert, In no apparent distress HEENT: Atraumatic, PERRLA, Mucous membr. moist/pink, EOMI, Sclerae nonicteric Neck: Supple, 2+ carotid pulse no bruit, No LAD, Without JVD or thyroid abnormality Respiratory: Clear to auscultation bilaterally, Normal air movement Cardiovascular: Regular rate/rhythm, Normal S1 S2 Gastrointestinal: Normal bowel sounds, No tenderness Musculoskeletal: No tenderness Integumentary: No rashes Neurological: Normal gait, Normal speech, Normal tone, Normal affect Lymphatics: No axilla or inguinal lymphadenopathy - Problems (1) Atrial fibrillation Current Visit: Yes Status: Acute Plan: patient is in sinus rhythm now after diltazem drip stop coreg start lopressor 25 mg po BID patient will need to be on Eliqios 5 mg po BID but got no medical coverage, social work job titles to help patient with applying for aid if possible, if not then he will need to be on ASA 81 mg daily
[2024-03-23] MEDS: POTASSIUM CL SA 10 MEQ TAB PO ONE (19:57)
[2024-03-24 06:37] LABS: Hematocrit 48.2 % (39.6-49.0); Hemoglobin 16.4 g/dL (13.6-17.9); MCH 28.9 pg (27.0-35.0); MCV 85.1 fL (80-100); MPV 8.3 fL (7.6-11.3); Platelets 227 thou/uL (152-406); RBC Red Blood Cell Count 5.66 M/uL (4.33-5.43); Red Cell Distribution Width 13.3 % (12.1-15.2)
[2024-03-24 06:57] LABS: Anion Gap 8.7 mEq/L (5.0-15.0)
[2024-03-24 06:59] LABS: Magnesium 2.4 mg/dL (1.6-2.4); Potassium 3.7 mEq/L (3.5-5.1)
[2024-03-24 07:49] VITALS: BP 147/91
[2024-03-24] MEDS: POTASSIUM CL SA 10 MEQ TAB PO ONE (08:35)
[2024-03-24 08:38] VITALS: TEMP 97.9
--- NOTE | 2024-03-24 09:11 | P.DS ---
Admission Date: 03/22/24 Discharge Date: 03/24/24 Disposition: ROUTINE DISCHARGE Discharge Condition: GOOD Reason for Admission: New onset A-fib with RVR Consultations: Cardiology - Dr. Peraza Brief History of Present Illness: 48yo M, PMH: hypertension, [id number] diabetes Patient presents the emergency department chief complaint of palpitations. He reports that around 2300 last night he noticed that his heart was racing and for that reason he came into the emergency department. He has no known history of atrial fibrillation, he was found to be in A-fib with rapid ventricular response. He was started on Cardizem and his rate is currently between 90 and 100. He will be admitted for further evaluation and management of new onset A- fib with RVR Hospital Course: Problem List: New onset A-fib with RVR NIDDM2 with hyperglycemia Hypertension Physician discharge instructions: Patient presented with intermittent fluttering sensation, palpitations over the last few months. He was found to be in new onset a-fib with RVR while in the ED. Patient was given theraupetic lovenox in ED. Cardiology was consulted in the ED and recommending starting patient on a cardizem drip. Patient converted back in sinus rhythm on 03/23 ~8am. Cardizem drip was deescalated to oral metoprolol and patient remained stable in sinus rhythm. New prescriptions sent for Metoprolol 25 mg BID and Eliquis [address] Peraza recommending continuing Eliquis on discharge, however if too costly or unable to obtain for whatever reason, recommend taking aspirin [address] of Eliquis. Discussed with patient importance as to not miss any doses. Follow up with cardiology in near future for further management. Consider getting a sleep study with PCP in near future to eval for obstructive sleep apnea given reported frequent snoring. Echocardiogram was done on day of discharge, pending official report. Can discuss echocardiogram results with hydroelectric production manager at follow up appointment. A1c this hospitalization was noted to be 11.1, compared to 6.6 back in March 2022. He reported running out of his meds and haven't been able to get a refill. Refill sent for metformin. Follow up with PCP for further management. Medications: Metoprolol 25 mg BID Eliquis 5 mg twice daily If Eliquis is too costly, or you are unable to fill prescription for whatever reason, Take aspirin 81 mg daily instead of eliquis. Will send patient home with Eliquis coupon refill sent for metformin. Follow up: PCP 3-5 days Cardiology 2-4 weeks Please call to schedule / confirm appointments Physical Exam: GEN: Alert, oriented, NAD CV: Regualr rate and rhythm, no edema Pulm: Nonlabored respirations on room air, clear bilaterally ABD: soft, nontender, nondistended Integumentary: No rashes Neuro: Normal speech, normal affect Vital Signs/Physical Exam: Temp Pulse Resp BP Pulse Ox 97.9 F 68 19 147/91 H 97 03/24/24 08:00 03/24/24 08:00 03/24/24 08:00 03/24/24 08:00 03/24/24 08:00 Laboratory Data at Discharge: WBC 7.20 thou/uL (4.3-10.9) 03/24/24 05:55 Hgb 16.4 g/dL (13.6-17.9) 03/24/24 05:55 Hct 48.2 % (39.6-49.0) 03/24/24 05:55 Plt Count 227 thou/uL (152-406) 03/24/24 05:55 PT 11.2 SECONDS (9.4-12.5) 03/22/24 00:42 INR 1.07 03/22/24 00:42 Sodium 135 mEq/L (136-145) L 03/24/24 05:55 Potassium 3.7 mEq/L (3.5-5.1) 03/24/24 05:55 BUN 17 mg/dL (7-18) 03/24/24 05:55 Creatinine 1.02 mg/dL (0.70-1.30) 03/24/24 05:55 Glucose 254 mg/dL (74-106) H 03/24/24 05:55 Magnesium 2.4 mg/dL (1.6-2.4) 03/24/24 05:55 Total Bilirubin 0.7 mg/dL (0.2-1.0) 03/22/24 00:42 AST 25 U/L (15-37) 03/22/24 00:42 ALT 28 U/L (16-61) 03/22/24 00:42 Alkaline Phosphatase 150 U/L (45-117) H 03/22/24 00:42 Home Medications: Amlodipine Besylate/Benazepril [Lotrel 10-40 mg Capsule] 10 mg PO DAILY 03/22/24 hydroCHLOROthiazide [Hydrochlorothiazide] 25 mg PO DAILY 03/22/24 Apixaban [Eliquis] 5 mg PO BID 30 Days #60 tab 03/24/24 Metformin HCl 1,000 mg PO BID 30 Days #60 tablet 03/24/24 Metoprolol Tartrate [Lopressor*] 25 mg PO BID 6AM 6PM 30 Days #60 tab 03/24/24 New Medications: Apixaban [Eliquis] 5 mg PO BID 30 Days #60 tab Metoprolol Tartrate [Lopressor*] 25 mg PO BID 6AM 6PM 30 Days #60 tab Metformin HCl 1,000 mg PO BID 30 Days #60 tablet Physician Discharge Instructions: Physician discharge instructions: Patient presented with intermittent fluttering sensation, palpitations over the last few months. He was found to be in new onset a-fib with RVR while in the ED. Patient was given theraupetic lovenox in ED. Cardiology was consulted in the ED and recommending starting patient on a cardizem drip. Patient converted back in sinus rhythm on 03/23 ~8am. Cardizem drip was deescalated to oral metoprolol and patient remained stable in sinus rhythm. New prescriptions sent for Metoprolol 25 mg BID and Eliquis [address] Peraza recommending continuing Eliquis on discharge, however if too costly or unable to obtain for whatever reason, recommend taking aspirin [address] of Eliquis. Discussed with patient importance as to not miss any doses. Follow up with cardiology in near future for further management. Consider getting a sleep study with PCP in near future to eval for obstructive sleep apnea given reported frequent snoring. Echocardiogram was done on day of discharge, pending official report. Can discuss echocardiogram results with hydroelectric production manager at follow up appointment. A1c this hospitalization was noted to be 11.1, compared to 6.6 back in March 2022. He reported running out of his meds and haven't been able to get a refill. Refill sent for metformin. Medications: Metoprolol 25 mg BID Eliquis 5 mg twice daily If Eliquis is too costly, or you are unable to fill prescription for whatever reason, Take aspirin 81 mg daily instead of eliquis. Will send patient home with Eliquis coupon Follow up: PCP 3-5 days Cardiology 2-4 weeks Please call to schedule / confirm appointments Followup: Te Palencia MD [Primary Care Provider] - 1 Week Bernard Peraza MD [ACTIVE - CAN ADMIT] - 1 Week Time spent managing pt's care (in minutes): 45
[2024-03-24 09:40] VITALS: O2SAT 96
--- NOTE | 2024-03-24 12:46 | ECHO ---
HEIGHT: 5 ft 7 in WEIGHT: 247 lb 1.6 oz DATE OF STUDY: 03/24/[address]: Matt Jones NP 2-DIMENSIONAL: YES M.MODE: YES DOPPLER: YES COLOR FLOW: YES TDS: PORTABLE: YES DEFINITY: BUBBLE STUDY: DIAGNOSIS: NEW ATRIAL FIBRILLATION CARDIAC HISTORY: CATHERIZATION: NO SURGERY: NO PROSTHETIC VALVE: NO PACEMAKER: NO MEASUREMENTS (cm) DIASTOLIC (NORMALS) SYSTOLIC (NORMALS) IVSd 1.0 (0.6-1.2) LA Diam 3.3 (1.9-4.0) LVEF 60-65% LVIDd 4.3 (3.5-5.7) LVIDs 3.1 (2.0-3.5) %FS 28% LVPWd 1.1 (0.6-1.2) Ao Diam 3.0 (2.0-3.7) 2 DIMENSIONAL ASSESSMENT: RIGHT ATRIUM: NORMAL LEFT ATRIUM: NORMAL RIGHT VENTRICLE: NORMAL LEFT VENTRICLE: NORMAL TRICUSPID VALVE: NORMAL MITRAL VALVE: NORMAL PULMONIC VALVE: NORMAL AORTIC VALVE: NORMAL PERICARDIAL EFFUSION: NONE AORTIC ROOT: NORMAL LEFT VENTRICULAR WALL MOTION: NORMAL DOPPLER/COLOR FLOW: NORMAL COMMENTS: 1. NORMAL LEFT VENTRICULAR SYSTOLIC FUNCTION, EJECTION FRACTION 60-65%, NORMAL WALL MOTION 2. NORMAL DIASTOLIC FUNCTION TECHNOLOGIST: BERRY HOWELL
--- NOTE | 2024-03-31 12:38 | EKG ---
Test Date: 2024-03-23 Test Time: 08:00:36 Interlocking And Signal Mechanic: MY MEASUREMENT RESULTS: Intervals: Rate: 58 NE: 176 QRSD: 92 QT: 416 QTc: 408 [place]: P: 19 NE: 176 QRS: -27 T: -11 INTERPRETIVE STATEMENTS: Sinus bradycardia Minimal voltage criteria for LVH, may be normal variant Possible Inferior infarct, age undetermined Cannot rule out Anterior infarct, age undetermined Abnormal ECG Compared to ECG 03/21/2024 23:44:23 Left ventricular hypertrophy now present Myocardial infarct finding now present Atrial fibrillation no longer present Electronically Signed On 03-31-24 12:21:20 CAMPUS SAFETY OFFICER by Bernard Peraza
--- NOTE | 2024-03-31 12:44 | EKG ---
Test Date: 2024-03-21 Test Time: 23:44:23 Social Organization Professor: YUNIER MEASUREMENT RESULTS: Intervals: Rate: 130 CT: QRSD: 88 QT: 284 QTc: 417 [place]: P: CT: QRS: 12 T: -15 INTERPRETIVE STATEMENTS: Atrial fibrillation Abnormal ECG Compared to ECG 03/07/2022 18:59:24 Sinus rhythm no longer present Right superior axis no longer present ST (T wave) deviation no longer present Possible ischemia no longer present Electronically Signed On 03-31-24 12:22:48 RESEARCH MICROBIOLOGIST by Bernard Peraza
== END 2024-03-24 11:15 | disposition home or self-care (01) | DRG 310 ==
LOC: ER 23:15 → ERHOLD 03-22 05:22 → 3RD-ICU 03-22 16:03 → 4TH 03-23 21:10
PROVIDERS: ADMIT Hospitalist; ATTEND Hospitalist
DX: I48.91 Unspecified atrial fibrillation (principal); I10 Essential (primary) hypertension; E11.65 Type 2 diabetes mellitus with hyperglycemia; E66.9 Obesity, unspecified; T38.3X6A Underdosing of insulin and oral hypoglycemic [antidiabetic] drugs, initial encounter; Z68.39 Body mass index [BMI] 39.0-39.9, adult; Z79.82 Long term (current) use of aspirin; Z79.84 Long term (current) use of oral hypoglycemic drugs; Z79.02 Long term (current) use of antithrombotics/antiplatelets; Z79.899 Other long term (current) drug therapy; Z91.148 Patient's other noncompliance with medication regimen for other reason
CPT/HCPCS: 36415; 71045; 80048; 80076; 82947; 83036; 83735; 83880; 84484; 85025; 85027; 85610; 87070; 87081; 93005; 93306; 96365; 96366; 96372; 96375; 99285; J1650; J7030